=== PATIENT | female | born 1945 | race Caucasian/White ===

== ENCOUNTER 2016-09-23 18:50 | Emergency (ER) | payer MEDICARE, OTHER ==
[2016-09-23] MEDS ORDERED: Albuterol/Ipratropium 3.0-0.5 MG/3 ML Neb Soln NEB ONE ×2 (19:06→20:01)
[2016-09-23] MEDS ORDERED: Sodium Chloride 0.9% 10 ML Syringe FLUSH PRN (19:07)
[2016-09-23] MEDS ORDERED: methylPREDNISolone Sodium Succinate 125 MG/2 ML SDV IVPUSH ONE (19:07)
--- NOTE | 2016-09-23 19:14 | EDM.PDOC ---
ED HISTORY OF PRESENT ILLNESS - General Chief Complaint: Respiratory Problem Stated Complaint: SOB Time Seen by Provider: 09/23/16 18:55 Source: Reports: Patient History Limitations: Reports: No limitations - History of Present Illness INITIAL COMMENTS - FREE TEXT/NARRATIVE: c/o sob x 12h inc'd sob, has COPD, no cigs x yrs, on 3 l/min O2 at home nasal congestion x 1d no f/c/d cough, nonproductive forgot to use her alb neb 2h ago as per her routine po 96% on arrival to ED - Related Data Allergies/ADRs: Allergies Allergy/AdvReac Type Severity Reaction Status Date / Time ibuprofen Allergy Nausea and Verified 09/23/16 19:00 Vomiting sulfamethoxazole Allergy Nausea and Verified 09/23/16 19:00 [From Bactrim] Vomiting trimethoprim [From Bactrim] Allergy Nausea and Verified 09/23/16 19:00 Vomiting Home Meds: Home Meds ALPRAZolam 2 mg PO TID 09/24/13 [History] Albuterol [Ventolin HFA] 2 puff INH Q4H PRN 09/24/13 [History] Fluticasone Propionate [Flonase] 2 sprays NASBOTH BID 09/24/13 [History] Lutein 20 mg PO DAILY 09/24/13 [History] Morphine [MS Contin] 15 mg PO BID 09/24/13 [History] Omeprazole [Prilosec] 20 mg PO DAILY 09/24/13 [History] PARoxetine [Paxil] 60 mg PO DAILY 09/24/13 [History] Fluticasone/Salmeterol [Advair 250-50] 1 puff INH BID 07/14/14 [History] Losartan [Cozaar] 100 mg PO DAILY 12/19/14 [History] Cetirizine [ZyrTEC] 10 mg PO DAILY 02/27/16 [History] Theophylline Anhydrous 300 mg PO BID 02/27/16 [History] Codeine/guaiFENesin [Robitussin AC] 5 - 10 ml PO Q4H PRN #1 bottle 05/23/16 [Rx] Naproxen 500 mg PO BID 09/03/16 [History] Triamterene/Hydrochlorothiazid [Triamterene-HCTZ 37.5-25 MG] 1 each PO DAILY [History] traZODone 50 mg PO BEDTIME 09/03/16 [History] Acetaminophen [Tylenol Arthritis] 1,300 mg PO Q8H 09/04/16 [History] Albuterol/Ipratropium [DuoNeb 3.0-0.5 MG/3 ML] 3 ml IH QID PRN 09/04/16 [History ] Bimatoprost [Lumigan 0.01% Ophth Soln] 1 drop EYEBOTH BEDTIME 09/04/16 [History] Metoprolol Succinate [Toprol XL] 25 mg PO BID 09/04/16 [History] Benzonatate [Tessalon Perles] 100 mg PO QID #30 cap 09/06/16 [Rx] Azithromycin [IJD: Azithromycin] 250 mg PO DAILY #4 tab 09/23/16 [Rx] Cyproheptadine 4 mg PO TID 09/23/16 [History] Docusate Sodium/Sennosides [Senokot-S] 1 tab PO BEDTIME 09/23/16 [History] Hypromellose [GenTeal Mild to Moderate Ophth Soln] 1 drop EYEBOTH DAILY [History] predniSONE [Prednisone] 20 mg PO DAILY #9 tablet 09/23/16 [Rx] Past Medical History HEENT History: Reports: Cataract, Glaucoma Cardiovascular History: Reports: Hypertension Respiratory History: Reports: Asthma Other Respiratory History: PULMONARY EMPHYSEMA Gastrointestinal History: Reports: GERD Musculoskeletal History: Reports: Arthritis Neurological History: Reports: Headaches, chronic, Other (see below) Other Neuro History: COMMUNICATION HYDROCEPHALUS Psychiatric History: Reports: Anxiety, Depression Endocrine/Metabolic History: Reports: Obesity/BMI 30+ Other Hematologic History: blood transfusion as a baby x1 - Past Surgical History HEENT Surgical History: Reports: Tonsillectomy GI Surgical History: Reports: Appendectomy, Cholecystectomy Female Surgical History: Reports: Hysterectomy, Tubal ligation Social & Family History - Tobacco Use Smoking Status *Q: Former Smoker Years of Tobacco use: 30 Used Tobacco, but Quit: Yes Month Tobacco Last Used: August Second Hand Smoke Exposure: No - Caffeine Use Caffeine Use: Reports: None - Alcohol Use Days Per Week of Alcohol Use: 0 - Recreational Drug Use Recreational Drug Use: No ED ROS GENERAL - Review of Systems Review Of Systems: See Below Constitutional: Reports: no symptoms HEENT: Reports: Rhinitis Respiratory: Reports: no symptoms Cardiovascular: Reports: Chest pain, Other (sternal CP with DB) Endocrine: Reports: no symptoms GI/Abdominal: Reports: No symptoms : Reports: no symptoms Musculoskeletal: Reports: no symptoms Skin: Reports: no symptoms Neurological: Reports: no symptoms Psychiatric: Reports: No symptoms Hematologic/Lymphatic: Reports: no symptoms Immunologic: Reports: no symptoms ED EXAM, GENERAL - Physical Exam Exam: See Below Exam Limited By: No limitations General Appearance: alert, WD/WN, mild distress Nose: nasal swelling, nasal drainage Throat/Mouth: Normal inspection, Normal lips, Normal gums, Normal oropharynx, Normal voice, No airway compromise Head: atraumatic, normocephalic Neck: normal inspection, supple, non-tender, full range of motion Respiratory/Chest: other (talk 4-word sentences, using accesory muscles, no retractions, moderate dyspnea, fair AE, moderate exp wheeze) Cardiovascular: normal peripheral pulses, regular rate, rhythm, no edema, no gallop, no rub, other (2/6 EBONY at LSB) GI/Abdominal: normal bowel sounds, soft, non tender, no distention Back Exam: normal inspection, full range of motion, NT Extremities: normal inspection, normal range of motion, non-tender, normal capillary refill, no pedal edema Neurological: alert, oriented, CN II-XII intact, normal cognition, no motor/ sensory deficits Psychiatric: normal affect, normal mood Skin Exam: Warm, Dry, Intact, Normal color, No rash Lymphatic: no adenopathy Course - Vital Signs Last Recorded V/S: Last Vital Signs Temp 36.5 C 09/23/16 19:11 Pulse 102 H 09/23/16 22:33 Resp 22 H 09/23/16 22:33 BP 151/107 H 09/23/16 22:33 Pulse Ox 97 09/23/16 22:33 - Orders/Labs/Meds Orders: Active Orders 24 hr Category Date Time Status EKG Documentation Completion [RC] ASDIRECTED Care 09/23/16 19:06 Active RT Aerosol Therapy [RC] ASDIRECTED Care 09/23/16 19:07 Active RT Aerosol Therapy [RC] ASDIRECTED Care 09/23/16 20:01 Active Ang Chest [CT] Stat Exams 09/23/16 20:33 Taken Chest 2V [CR] Stat Exams 09/23/16 19:06 Taken URINALYSIS W/MICROSCOPIC [UA W/MICROSCOPIC] [URIN] Stat Lab 09/23/16 19:05 Uncollected Sodium Chloride 0.9% [Saline Flush] Med 09/23/16 19:07 Active 10 ml FLUSH ASDIRECTED PRN Saline Lock Insert [OM.PC] Routine Oth 09/23/16 19:07 Ordered EKG 12 Lead [EK] Routine Ther 09/23/16 19:06 Ordered Medication Orders Sodium Chloride (Saline Flush) 10 ml FLUSH ASDIRECTED PRN PRN Reason: Keep Vein Open Last Admin: 09/23/16 19:21 Dose: 10 ml Labs: Laboratory Tests 09/23/16 09/23/16 09/23/16 Range/Units 19:35 19:35 19:35 WBC 8.4 (4.5-12.0) X10-3/uL RBC 3.75 (3.23-5.20) x10(6)uL Hgb 11.9 (11.5-15.5) g/dL Hct 35.6 (30.0-51.3) % MCV 94.8 (80-96) fL MCH 31.7 (27.7-33.6) pg MCHC 33.4 (32.2-35.4) g/dL RDW 14.0 (11.5-15.5) % Plt Count 377 H (125-369) X10(3)uL MPV 5.8 L (7.4-10.4) fL Neut % (Auto) 54.4 (46-82) % Lymph % (Auto) 36.5 (13-37) % [place] % (Auto) 8.0 (4-12) % Eos % (Auto) 1 (1.0-5.0) % Baso % (Auto) 1 (0-2) % Neut # 4.5 (1.6-8.3) # Lymph # 3.1 (0.6-5.0) # [place] # 0.7 (0.0-1.3) # Eos # 0.1 (0.0-0.8) # Baso # 0.0 (0.0-0.2) # D-Dimer, Quantitative (100-400) ng/mL ABG pH (7.35-7.45) ABG pCO2 (35-45) mmHg ABG pO2 (83-108) mmHg ABG HCO3 (22-26) mmol/L ABG O2 Saturation (96-97) % ABG Base Excess (-2-2) Jose A Test O2 Delivery Device Oxygen Flow Rate L Sodium 132 L (135-145) mmol/L Potassium 3.8 (3.5-5.3) mmol/L Chloride 100 (100-110) mmol/L Carbon Dioxide 25 (23-29) mmol/L BUN 8 (8-23) mg/dL Creatinine 0.5 L (0.6-1.3) mg/dL Est Cr Clr Drug Dosing TNP Estimated GFR (MDRD) > 60 (>60) BUN/Creatinine Ratio 16.0 (9-20) Glucose 109 (80-116) mg/dL Calcium 9.3 (8.6-10.2) mg/dL Total Bilirubin 0.7 (0.1-1.3) mg/dL AST 18 D (5-27) IU/L ALT 12 L D (14-26) IU/L Alkaline Phosphatase 70 (56-112) IU/L Troponin I < 0.01 L (0.02-0.06) NG/ML C-Reactive Protein < 0.5 (0.0-1.0) mg/dL B-Natriuretic Peptide (0-100) pg/mL Total Protein 7.0 (6.0-8.0) g/dL Albumin 4.4 (3.2-4.6) g/dL Globulin 2.6 g/dL Albumin/Globulin Ratio 1.7 09/23/16 09/23/16 09/23/16 Range/Units 19:35 19:35 19:35 WBC (4.5-12.0) X10-3/uL RBC (3.23-5.20) x10(6)uL Hgb (11.5-15.5) g/dL Hct (30.0-51.3) % MCV (80-96) fL MCH (27.7-33.6) pg MCHC (32.2-35.4) g/dL RDW (11.5-15.5) % Plt Count (125-369) X10(3)uL MPV (7.4-10.4) fL Neut % (Auto) (46-82) % Lymph % (Auto) (13-37) % [place] % (Auto) (4-12) % Eos % (Auto) (1.0-5.0) % Baso % (Auto) (0-2) % Neut # (1.6-8.3) # Lymph # (0.6-5.0) # [place] # (0.0-1.3) # Eos # (0.0-0.8) # Baso # (0.0-0.2) # D-Dimer, Quantitative 582 H (100-400) ng/mL ABG pH 7.36 (7.35-7.45) ABG pCO2 43 (35-45) mmHg ABG pO2 52 L (83-108) mmHg ABG HCO3 24 (22-26) mmol/L ABG O2 Saturation 85 L (96-97) % ABG Base Excess -1.3 (-2-2) Jose A Test Not performed O2 Delivery Device Nasal cannula Oxygen Flow Rate 0 L Sodium (135-145) mmol/L Potassium (3.5-5.3) mmol/L Chloride (100-110) mmol/L Carbon Dioxide (23-29) mmol/L BUN (8-23) mg/dL Creatinine (0.6-1.3) mg/dL Est Cr Clr Drug Dosing Estimated GFR (MDRD) (>60) BUN/Creatinine Ratio (9-20) Glucose (80-116) mg/dL Calcium (8.6-10.2) mg/dL Total Bilirubin (0.1-1.3) mg/dL AST (5-27) IU/L ALT (14-26) IU/L Alkaline Phosphatase (56-112) IU/L Troponin I (0.02-0.06) NG/ML C-Reactive Protein (0.0-1.0) mg/dL B-Natriuretic Peptide 15 (0-100) pg/mL Total Protein (6.0-8.0) g/dL Albumin (3.2-4.6) g/dL Globulin g/dL Albumin/Globulin Ratio Meds: Medications Generic Name Dose Route Start Last Admin Trade Name Freq PRN Reason Stop Dose Admin Sodium Chloride 10 ml 09/23/16 19:07 09/23/16 19:21 Saline Flush FLUSH 10 ml ASDIRECTED PRN Administration Keep Vein Open Discontinued Medications Generic Name Dose Route Start Last Admin Trade Name True PRN Reason Stop Dose Admin Albuterol/Ipratropium 3 ml 09/23/16 19:06 09/23/16 19:17 Duoneb 3.0-0.5 Mg/3 Ml NEB 09/23/16 19:07 3 ml ONETIME ONE Administration Albuterol/Ipratropium 3 ml 09/23/16 20:01 09/23/16 20:08 Duoneb 3.0-0.5 Mg/3 Ml NEB 09/23/16 20:02 3 ml ONETIME ONE Administration Iopamidol 63 ml 09/23/16 20:54 09/23/16 21:11 Isovue-370 (76%) IV 09/23/16 20:55 63 ml ONETIME ONE Administration Lorazepam 1 mg 09/23/16 19:21 09/23/16 20:09 Ativan IVPUSH 09/23/16 19:22 1 mg ONETIME ONE Administration Methylprednisolone Sodium Succinate 125 mg 09/23/16 19:07 09/23/16 19:21 Solu-Medrol IVPUSH 09/23/16 19:08 125 mg ONETIME ONE Administration - Re-Assessments/Exams Free Text/Narrative Re-Assessment/Exam: 09/23/16 20:34 CxR d/w radiologist, new linear markings at bases c/w atelectasis altho not in pt using accessory muscles, there is a discoid appearance c/w possible PE which is a consideration with an inc'd d-dimer that is 50% than ULN and 50% higher than previous 09/23/16 22:57 chest CTA neg for PE, lungs much more clear after Solu-Medrol, had eye surgery earlier this AM and pt reluctant to go home Departure - Departure Time of Disposition: 22:58 Disposition: [facility] Condition: good Clinical Impression: COPD exacerbation Prescriptions: Azithromycin [IJD: Azithromycin] 250 mg PO DAILY #4 tab predniSONE [Prednisone] 20 mg PO DAILY #9 tablet Instructions: Chronic Obstructive Pulmonary Disease Exacerbation, Lycb-kg-Ipyg Forms: ED Department Discharge Additional Instructions: Continue current nebulizers and inhalers. Add the steroid prednisone 20 mg 2 tab daily for 2 days, then 1 tab daily for 5 days. Add the antibiotic azithromycin 2509 mg 1 tab daily for 4 days. See your doctor in 4 days. Rest. Increase fluids. Call your Physician or Return to Emergency Department if: * Your condition worsens in any way. * You develop fever greater than 100.4. * You have vomitting that does not stop with medications. * You have pain that is not controlled with medications. - My Orders Last 24 Hours: My Active Orders 09/23/16 19:05 URINALYSIS W/MICROSCOPIC [UA W/MICROSCOPIC] [URIN] Stat 09/23/16 19:06 EKG Documentation Completion [RC] ASDIRECTED Chest 2V [CR] Stat EKG 12 Lead [EK] Routine 09/23/16 19:07 RT Aerosol Therapy [RC] ASDIRECTED Sodium Chloride 0.9% [Saline Flush] 10 ml FLUSH ASDIRECTED PRN Saline Lock Insert [OM.PC] Routine 09/23/16 20:01 RT Aerosol Therapy [RC] ASDIRECTED 09/23/16 20:33 Ang Chest [CT] Stat - Assessment/Plan Last 24 Hours: My Active Orders 09/23/16 19:05 URINALYSIS W/MICROSCOPIC [UA W/MICROSCOPIC] [URIN] Stat 09/23/16 19:06 EKG Documentation Completion [RC] ASDIRECTED Chest 2V [CR] Stat EKG 12 Lead [EK] Routine 09/23/16 19:07 RT Aerosol Therapy [RC] ASDIRECTED Sodium Chloride 0.9% [Saline Flush] 10 ml FLUSH ASDIRECTED PRN Saline Lock Insert [OM.PC] Routine 09/23/16 20:01 RT Aerosol Therapy [RC] ASDIRECTED 09/23/16 20:33 Ang Chest [CT] Stat
[2016-09-23] MEDS ORDERED: LORazepam 2 MG/ML MDV IVPUSH ONE (19:21)
[2016-09-23] MEDS ORDERED: Iopamidol 755 Mg/ML 75 ML Bottle IV ONE (20:54)
[2016-09-23] MEDS ORDERED: Azithromycin 500 MG Tab PO ONE (22:58)
[2016-09-24 01:14] VITALS: BP 128/63
--- NOTE | 2016-09-24 12:14 | CR ---
INDICATION: Short of breath. CHEST: Bibasilar linear changes which may be on the basis of subsegmental atelectasis. The possibility of patchy pneumonia superimposed is difficult to entirely exclude. No consolidating pneumonia or effusion was identified, however. At least some of these atelectatic appearing linear changes are new compared with the previous examination bilaterally. The heart is enlarged. No definite evidence of CHF is seen. Calcification is noted in the arch of the aorta. Severe dextroconcave rotoscoliosis of the lumbar spine is noted with tilt of the thoracic spine, in compensation, to the left in the lower portion, and dextroconvex scoliosis of the upper middle thoracic spine. Overlying snaps and overlying EKG lead noted. IMPRESSION: New finding of subsegmental atelectatic changes both lung bases. Etiology indeterminate. Findings should be correlated clinically. 2. Partially flattened diaphragm leaves, prominent AP diameter, mild hyperaeration, all suggest the possibility of COPD. 3. Scoliosis. 4. ASHD. With the new, possibly acute findings in the lung bases of linear atelectatic change, etiology is indeterminate. If pulmonary embolus is suspected clinically , additional examination - CT with IV contrast may be helpful. Report was called to Dr. Antunez at 1935 hours, 09/23/2016. [facility]
== END 2016-09-24 00:30 | disposition home or self-care (01) ==
LOC: FB.ED 18:50
DX: J44.1 Chronic obstructive pulmonary disease with (acute) exacerbation (principal); I10 Essential (primary) hypertension; J45.909 Unspecified asthma, uncomplicated; K21.9 Gastro-esophageal reflux disease without esophagitis; M19.90 Unspecified osteoarthritis, unspecified site; F41.9 Anxiety disorder, unspecified; F32.9 Major depressive disorder, single episode, unspecified; E66.9 Obesity, unspecified; Z98.890 Other specified postprocedural states; Z90.49 Acquired absence of other specified parts of digestive tract; Z90.710 Acquired absence of both cervix and uterus; Z98.51 Tubal ligation status; Z87.891 Personal history of nicotine dependence; Z79.899 Other long term (current) drug therapy; Z88.6 Allergy status to analgesic agent
CPT/HCPCS: 36415; 36600; 71020; 71275; 80053; 81001; 82803; 83880; 84484; 85025; 85379; 86140; 93005; 94640; 96374; 96375; 99285; J2060; J2930; J7050; J7620; Q9967

== ENCOUNTER 2017-03-25 03:25 | Observation (INO) | payer MEDICARE, OTHER ==
[2017-03-25] MEDS ORDERED: LORazepam 1 MG Tab PO ONE (04:10)
--- NOTE | 2017-03-25 04:17 | EDM.PDOCBH ---
ED HPI GENERAL MEDICAL PROBLEM - General Chief Complaint: General Stated Complaint: TROUBLE BREATHING Time Seen by Provider: 03/25/17 04:00 Source of Information: Reports: Patient, Family, Old Records History Limitations: Reports: No Limitations - History of Present Illness INITIAL COMMENTS - FREE TEXT/NARRATIVE: Asha comes to [facility] ED with sxs of a panic attack that began several hours ago. She has a PMH of ALVIN and takes Xanax 2 mg tid, current supply depleted and unable to refill medicatioin until March 28. Her Buspar is not helping control sxs. She has been on anxiolytics most of her adult life. She is experiencing restlessness, headaches, tremors, agitation, palpitations, and insomnia. Her med list is reviewed. - Related Data Allergies Allergy/AdvReac Type Severity Reaction Status Date / Time ibuprofen Allergy Nausea and Verified 09/23/16 19:00 Vomiting sulfamethoxazole Allergy Nausea and Verified 09/23/16 19:00 [From Bactrim] Vomiting trimethoprim [From Bactrim] Allergy Nausea and Verified 09/23/16 19:00 Vomiting Home Meds: Home Meds ALPRAZolam 2 mg PO TID 09/24/13 [History] Albuterol [Ventolin HFA] 2 puff INH Q4H PRN 09/24/13 [History] Fluticasone Propionate [Flonase] 2 sprays NASBOTH BID 09/24/13 [History] Lutein 20 mg PO DAILY 09/24/13 [History] Morphine [MS Contin] 15 mg PO BID 09/24/13 [History] Omeprazole [Prilosec] 20 mg PO DAILY 09/24/13 [History] PARoxetine [Paxil] 60 mg PO DAILY 09/24/13 [History] Fluticasone/Salmeterol [Advair 250-50] 1 puff INH BID 07/14/14 [History] Losartan [Cozaar] 100 mg PO DAILY 12/19/14 [History] Cetirizine [ZyrTEC] 10 mg PO DAILY 02/27/16 [History] Theophylline Anhydrous 300 mg PO BID 02/27/16 [History] Codeine/guaiFENesin [Robitussin AC] 5 - 10 ml PO Q4H PRN #1 bottle 05/23/16 [Rx] Naproxen 500 mg PO BID 09/03/16 [History] Triamterene/Hydrochlorothiazid [Triamterene-HCTZ 37.5-25 MG] 1 each PO DAILY [History] traZODone 50 mg PO BEDTIME 09/03/16 [History] Acetaminophen [Tylenol Arthritis] 1,300 mg PO Q8H 09/04/16 [History] Albuterol/Ipratropium [DuoNeb 3.0-0.5 MG/3 ML] 3 ml IH QID PRN 09/04/16 [History ] Bimatoprost [Lumigan 0.01% Ophth Soln] 1 drop EYEBOTH BEDTIME 09/04/16 [History] Metoprolol Succinate [Toprol XL] 25 mg PO BID 09/04/16 [History] Benzonatate [Tessalon Perles] 100 mg PO QID #30 cap 09/06/16 [Rx] Azithromycin [IJD: Azithromycin] 250 mg PO DAILY #4 tab 09/23/16 [Rx] Cyproheptadine 4 mg PO TID 09/23/16 [History] Docusate Sodium/Sennosides [Senokot-S] 1 tab PO BEDTIME 09/23/16 [History] Hypromellose [GenTeal Mild to Moderate Ophth Soln] 1 drop EYEBOTH DAILY [History] predniSONE [Prednisone] 20 mg PO DAILY #9 tablet 09/23/16 [Rx] Past Medical History HEENT History: Reports: Cataract, Glaucoma Cardiovascular History: Reports: Hypertension Respiratory History: Reports: Asthma Other Respiratory History: PULMONARY EMPHYSEMA Gastrointestinal History: Reports: GERD Musculoskeletal History: Reports: Arthritis Neurological History: Reports: Headaches, Chronic, Other (See Below) Other Neuro History: COMMUNICATION HYDROCEPHALUS Psychiatric History: Reports: Anxiety, Depression Endocrine/Metabolic History: Reports: Obesity/BMI 30+ Other Hematologic History: blood transfusion as a baby x1 - Past Surgical History Female Surgical History: Reports: Hysterectomy, Tubal Ligation Social & Family History - Tobacco Use Smoking Status *Q: Former Smoker Years of Tobacco use: 30 Used Tobacco, but Quit: Yes Month Tobacco Last Used: August Second Hand Smoke Exposure: No - Caffeine Use Caffeine Use: Reports: None - Alcohol Use Days Per Week of Alcohol Use: 0 - Recreational Drug Use Recreational Drug Use: No ED ROS GENERAL - Review of Systems Review Of Systems: See Below Constitutional: Reports: No Symptoms HEENT: Reports: No Symptoms Respiratory: Reports: No Symptoms Cardiovascular: Reports: Palpitations Endocrine: Reports: No Symptoms GI/Abdominal: Reports: No Symptoms : Reports: No Symptoms Musculoskeletal: Reports: No Symptoms Skin: Reports: No Symptoms Neurological: Reports: Dizziness, Headache, Numbness, Tingling, Tremors Psychiatric: Reports: Agitation, Anxiety Hematologic/Lymphatic: Reports: No Symptoms Immunologic: Reports: No Symptoms ED EXAM, BEHAVIORAL HEALTH - Physical Exam Exam: See Below Exam Limited By: No Limitations General Appearance: Alert, WD/WN, Anxious, Mild Distress Eye Exam: Bilateral Eye: EOMI, Normal Inspection, PERRL Ears: Normal External Exam Nose: Normal Inspection Throat/Mouth: Normal Inspection, Normal Oropharynx Head: Normocephalic Neck: Normal Inspection, Supple Respiratory/Chest: Lungs Clear, Normal Breath Sounds Cardiovascular: Regular Rate, Rhythm GI/Abdominal: Normal Bowel Sounds, Soft, Non-Tender, No Organomegaly, No Mass Back Exam: Normal Inspection Extremities: Normal Inspection, Normal Range of Motion Neurological: Alert, CN II-XII Intact, Normal Cognition, No Motor/Sensory Deficits, Oriented x 3 Psychiatric: Alert, Oriented, Restless, Agitated Skin Exam: Warm, Dry, Intact COURSE, BEHAVIORAL HEALTH COMP - Course Vital Signs: Last Vital Signs Temp 36.6 C 03/25/17 03:45 Pulse 92 03/25/17 03:45 Resp 24 H 03/25/17 03:45 BP 171/90 H 03/25/17 03:45 Pulse Ox 97 03/25/17 03:45 Orders, Labs, Meds: Active Orders 24 hr Category Date Time Status ACETAMINOPHEN [CHEM] Routine Lab 03/25/17 04:45 Stop Req BASIC METABOLIC PANEL,BMP [CHEM] Routine Lab 03/25/17 04:45 Stop Req CBC WITH AUTO DIFF [HEME] Routine Lab 03/25/17 04:45 Received COMPREHENSIVE METABOLIC PN,CMP [CHEM] Stat Lab 03/25/17 04:46 Ordered ETHANOL BLOOD MEDICAL [CHEM] Routine Lab 03/25/17 04:45 Stop Req SALICYLATE [CHEM] Routine Lab 03/25/17 04:45 Stop Req TSH ULTRASENSITIVE [CHEM] Routine Lab 03/25/17 04:45 Stop Req Sodium Chloride 0.9% [Normal Saline] 500 ml Med 03/25/17 04:44 Active IV .BOLUS Sodium Chloride 0.9% [Saline Flush] Med 03/25/17 04:43 Active 10 ml FLUSH ASDIRECTED PRN Peripheral IV Insertion Adult [OM.PC] Routine Oth 03/25/17 04:43 Ordered Medication Orders Sodium Chloride (Normal Saline) 500 mls @ 500 mls/hr IV .BOLUS ONE Stop: 03/25/17 05:43 Sodium Chloride (Saline Flush) 10 ml FLUSH ASDIRECTED PRN PRN Reason: Keep Vein Open Medications Generic Name Dose Route Start Last Admin Trade Name Freq PRN Reason Stop Dose Admin Sodium Chloride 500 mls @ 500 mls/hr 03/25/17 04:44 Normal Saline IV 03/25/17 05:43 .BOLUS ONE Sodium Chloride 10 ml 03/25/17 04:43 Saline Flush FLUSH ASDIRECTED PRN Keep Vein Open Discontinued Medications Generic Name Dose Route Start Last Admin Trade Name Freq PRN Reason Stop Dose Admin Lorazepam 1 mg 03/25/17 04:10 03/25/17 04:19 Ativan PO 03/25/17 04:11 1 mg ONETIME ONE Administration Lorazepam 1 mg 03/25/17 04:43 Ativan IVPUSH 03/25/17 04:44 ONETIME ONE Departure - Departure Time of Disposition: 04:50 Disposition: Refer to Observation Condition: Fair Clinical Impression: Witnessed seizure - Discharge Information Referrals: Cristian Velez MD [Primary Care Provider] - Forms: ED Department Discharge - Problem List & Annotations (1) Witnessed seizure SNOMED Code(s): 27587839 Code(s): R56.9 - UNSPECIFIED CONVULSIONS Status: Acute Current Visit: Yes Annotation/Comment:: Asha received Ativan 1 mg po while in the ED, and then went to the commode to void about 15 minutes later. She subsequently had a generalized tonic-clonic seizure which lasted about 1 minute and subsided spontaneously. She is currently post ictal, and will be admitted to Observation for suspected withdrawl seizure (Xanax). An IV was inserted, and she received Ativan 1 mg IV prior to transfer. - Problem List Review Problem List Initiated/Reviewed/Updated: Yes - My Orders Last 24 Hours: My Active Orders 03/25/17 04:43 Sodium Chloride 0.9% [Saline Flush] 10 ml FLUSH ASDIRECTED PRN Peripheral IV Insertion Adult [OM.PC] Routine 03/25/17 04:44 Sodium Chloride 0.9% [Normal Saline] 500 ml IV .BOLUS 03/25/17 04:45 ACETAMINOPHEN [CHEM] Routine BASIC METABOLIC PANEL,BMP [CHEM] Routine CBC WITH AUTO DIFF [HEME] Routine ETHANOL BLOOD MEDICAL [CHEM] Routine SALICYLATE [CHEM] Routine TSH ULTRASENSITIVE [CHEM] Routine 03/25/17 04:46 COMPREHENSIVE METABOLIC PN,CMP [CHEM] Stat - Assessment/Plan Last 24 Hours: My Active Orders 03/25/17 04:43 Sodium Chloride 0.9% [Saline Flush] 10 ml FLUSH ASDIRECTED PRN Peripheral IV Insertion Adult [OM.PC] Routine 03/25/17 04:44 Sodium Chloride 0.9% [Normal Saline] 500 ml IV .BOLUS 03/25/17 04:45 ACETAMINOPHEN [CHEM] Routine BASIC METABOLIC PANEL,BMP [CHEM] Routine CBC WITH AUTO DIFF [HEME] Routine ETHANOL BLOOD MEDICAL [CHEM] Routine SALICYLATE [CHEM] Routine TSH ULTRASENSITIVE [CHEM] Routine 03/25/17 04:46 COMPREHENSIVE METABOLIC PN,CMP [CHEM] Stat Plan: Move to Observation and monitor for any further withdrawl seizure activity, and restore benzodiazepine meds pending follow up with PCP.
[2017-03-25] MEDS ORDERED: Sodium Chloride 0.9% 10 ML Syringe FLUSH PRN (04:43)
[2017-03-25] MEDS ORDERED: LORazepam 2 MG/ML MDV IVPUSH ONE (04:43)
[2017-03-25] MEDS ORDERED: Sodium Chloride 0.9% 500 ML IV ONE (04:44)
[2017-03-25] MEDS ORDERED: Sodium Chloride 0.9% 1,000 ML IV SCH (06:00)
[2017-03-25] MEDS ORDERED: Albuterol 8 GM Inhaler INH PRN (07:40)
[2017-03-25] MEDS ORDERED: BENZONATATE 100 MG PO PRN (07:40)
[2017-03-25] MEDS ORDERED: Albuterol/Ipratropium 3.0-0.5 MG/3 ML Neb Soln NEB PRN (07:40)
--- NOTE | 2017-03-25 08:58 | PCM.HP ---
H&P History of Present Illness - General Date of Service: 03/25/17 Source of Information: Patient History Limitations: Reports: No Limitations - History of Present Illness Initial Comments - Free Text/Narative: This is a 72-year-old female patient came to the ER last night because of shortness of breath, chest pain and anxiety. She is on 2 mg of Xanax 3 times a day for years. She ran out last week she thinks. She was seen in the clinic yesterday and they gave her BuSpar. While she was here she had a seizure and was postictal according to the ER note. She has no history of seizures. She states she feels little short of breath, she is aching all over and feels nervous. She denies fevers, chills, cough, wheezing, weakness. back Pain Score (Numeric/FACES): 5 - Related Data Allergies/Adverse Reactions: Allergies Allergy/AdvReac Type Severity Reaction Status Date / Time ibuprofen Allergy Nausea and Verified 03/25/17 07:13 Vomiting sulfamethoxazole Allergy Nausea and Verified 03/25/17 07:13 [From Bactrim] Vomiting trimethoprim [From Bactrim] Allergy Nausea and Verified 03/25/17 07:13 Vomiting Home Medications: Home Meds ALPRAZolam 2 mg PO TID 09/24/13 [History] Albuterol [Ventolin HFA] 2 puff INH Q4H PRN 09/24/13 [History] Fluticasone Propionate [Flonase] 2 sprays NASBOTH BID 09/24/13 [History] Lutein 20 mg PO BID 09/24/13 [History] Morphine [MS Contin] 15 mg PO BID 09/24/13 [History] Omeprazole [Prilosec] 20 mg PO DAILY 09/24/13 [History] PARoxetine [Paxil] 60 mg PO DAILY 09/24/13 [History] Fluticasone/Salmeterol [Advair 250-50] 1 puff INH BID 07/14/14 [History] Losartan [Cozaar] 100 mg PO DAILY 12/19/14 [History] Cetirizine [ZyrTEC] 10 mg PO DAILY 02/27/16 [History] Theophylline Anhydrous 300 mg PO BID 02/27/16 [History] Codeine/guaiFENesin [Robitussin AC] 5 - 10 ml PO Q4H PRN #1 bottle 05/23/16 [Rx] Naproxen 500 mg PO BID PRN 09/03/16 [History] Triamterene/Hydrochlorothiazid [Triamterene-HCTZ 37.5-25 MG] 1 each PO DAILY [History] traZODone 50 mg PO BEDTIME 09/03/16 [History] Acetaminophen [Tylenol Arthritis] 1,300 mg PO Q8H 09/04/16 [History] Albuterol/Ipratropium [DuoNeb 3.0-0.5 MG/3 ML] 3 ml IH QID PRN 09/04/16 [History ] Bimatoprost [Lumigan 0.01% Ophth Soln] 1 drop EYEBOTH BEDTIME 09/04/16 [History] Metoprolol Succinate [Toprol XL] 25 mg PO BID 09/04/16 [History] Azithromycin [IJD: Azithromycin] 250 mg PO DAILY #4 tab 09/23/16 [Rx] Docusate Sodium/Sennosides [Senokot-S] 1 tab PO BID 09/23/16 [History] Hypromellose [GenTeal Mild to Moderate Ophth Soln] 1 drop EYEBOTH DAILY [History] predniSONE [Prednisone] 20 mg PO DAILY #9 tablet 09/23/16 [Rx] Benzonatate [Tessalon Perles] 100 mg PO QID PRN 03/25/17 [History] Budesonide [Pulmicort] 1 unit INH TID 03/25/17 [History] Calcium Carbonate/Vitamin D3 [Calcium 600-Vit D3 400 Tablet] 1 tab PO BID [History] Dextran 70/Hypromellose [Artificial Tears] 1 drop EYEBOTH ASDIRECTED PRN [History] Multivitamin [Multi-Vitamin Daily] 1 tab PO DAILY 03/25/17 [History] Polyethylene Glycol 3350 [MiraLAX] 17 gram PO BID 03/25/17 [History] Past Medical History HEENT History: Reports: Cataract, Glaucoma Cardiovascular History: Reports: Hypertension Respiratory History: Reports: Asthma Other Respiratory History: PULMONARY EMPHYSEMA Gastrointestinal History: Reports: GERD Genitourinary History: Reports: Urinary Incontinence [employer]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: Musculoskeletal History: Reports: Arthritis Neurological History: Reports: Headaches, Chronic, Other (See Below) Other Neuro History: COMMUNICATION HYDROCEPHALUS Psychiatric History: Reports: Anxiety, Depression Endocrine/Metabolic History: Reports: Obesity/BMI 30+ Other Hematologic History: blood transfusion as a baby x1 - Past Surgical History Female Surgical History: Reports: Hysterectomy, Tubal Ligation Social & Family History - Family History Family Medical History: Noncontributory - Tobacco Use Smoking Status *Q: Never Smoker Years of Tobacco use: 30 Used Tobacco, but Quit: Yes Month Tobacco Last Used: August Second Hand Smoke Exposure: No - Caffeine Use Caffeine Use: Reports: Coffee, Soda - Alcohol Use Days Per Week of Alcohol Use: 0 - Recreational Drug Use Recreational Drug Use: No H&P Review of Systems - Review of Systems: Review Of Systems: See Below General: Reports: No Symptoms HEENT: Reports: No Symptoms Pulmonary: Reports: Shortness of Breath. Denies: Wheezing, Cough, Sputum, Hemoptysis Cardiovascular: Reports: No Symptoms Gastrointestinal: Reports: No Symptoms Genitourinary: Reports: No Symptoms Musculoskeletal: Reports: Other (Myalgias all over) Skin: Reports: No Symptoms Psychiatric: Reports: Anxiety Neurological: Reports: No Symptoms Hematologic/Lymphatic: Reports: No Symptoms Immunologic: Reports: No Symptoms Exam - Exam Exam: See Below - Vital Signs Vital Signs: Last Vital Signs Temp 98.4 F 03/25/17 05:50 Pulse 93 03/25/17 05:50 Resp 16 03/25/17 05:50 BP 126/77 03/25/17 05:50 Pulse Ox 92 L 03/25/17 05:50 Weight: 172 lb 3.2 oz - Exam General: Alert, Oriented, Cooperative, Mild Distress HEENT: Hearing Intact, Mucosa Moist & [place], Posterior Pharynx Clear, TMs Clear Neck: Supple, Trachea Midline Lungs: Clear to Auscultation, Normal Respiratory Effort. No: Crackles, Rales, Rhonchi, Rub Cardiovascular: Regular Rate, Regular Rhythm. No: Irregular Rhythm, Bradycardia , Tachycardia GI/Abdominal Exam: Normal Bowel Sounds, Soft, Non-Tender, No Organomegaly, No Distention, No Abnormal Bruit, No Mass Extremities: No Pedal Edema Skin: Warm, Dry, Intact Neurological: Normal Speech, Normal Tone Neuro Extensive - Mental Status: Alert, Oriented x3, Normal Mood/Affect, Normal Cognition Psychiatric: Alert, Anxious - Patient Data Result Diagrams: 03/25/17 05:00 03/25/17 05:00 *Q Meaningful Use (ADM) - VTE *Q VTE Criteria *Q: - Stroke *Q Stroke Criteria *Q: - AMI *Q AMI Criteria *Q: - Problem List (1) Benzodiazepine withdrawal SNOMED Code(s): 288920073 ICD Code: F13.239 - SEDATV/HYP/ANXIOLYTC DEPENDENCE W WITHDRAWAL, UNSP Status: Acute Current Visit: Yes (2) Witnessed seizure SNOMED Code(s): 34308135 ICD Code: R56.9 - UNSPECIFIED CONVULSIONS Status: Acute Current Visit: Yes Problem Details: Asha received Ativan 1 mg po while in the ED, and then went to the commode to void about 15 minutes later. She subsequently had a generalized tonic-clonic seizure which lasted about 1 minute and subsided spontaneously. She is currently post ictal, and will be admitted to Observation for suspected withdrawl seizure (Xanax). An IV was inserted, and she received Ativan 1 mg IV prior to transfer. (3) Anxiety SNOMED Code(s): 14138724 ICD Code: F41.9 - ANXIETY DISORDER, UNSPECIFIED Status: Acute Priority: High Current Visit: No Problem Details: cont. alpazolam, SSRI (4) Hyponatremia SNOMED Code(s): 69235985 ICD Code: E87.1 - HYPO-OSMOLALITY AND HYPONATREMIA Status: Acute Current Visit: No (5) Palliative care status SNOMED Code(s): 274628451 ICD Code: Z51.5 - ENCOUNTER FOR PALLIATIVE CARE Status: Acute Current Visit: Yes Problem List Initiated/Reviewed/Updated: Yes Orders Last 24hrs: Active Orders 24 hr Category Date Time Status Oxygen Therapy, ED [RC] ASDIRECTED Care 03/25/17 03:30 Active Telemetry Monitoring [Cardiac Monitoring] [RC] .As Care 03/25/17 06:04 Active Directed Regular Diet [DIET] Diet 03/25/17 Lunch Active CBC WITH AUTO DIFF [HEME] Routine Lab 03/25/17 07:45 Ordered COMPREHENSIVE METABOLIC PN,CMP [CHEM] Routine Lab 03/25/17 07:45 Ordered ALPRAZolam [Xanax] Med 03/25/17 09:00 Active 2 mg PO TID Acetaminophen [Tylenol Arthritis Pain] Med 03/25/17 07:45 Ordered 1,300 mg PO Q8H Albuterol [Ventolin HFA] Med 03/25/17 07:40 Active 0 gm INH Q4H PRN Albuterol/Ipratropium [DuoNeb 3.0-0.5 MG/3 ML] Med 03/25/17 07:40 Ordered 3 ml NEB QID PRN Benzonatate [Tessalon Perles] Med 03/25/17 07:40 Ordered 100 mg PO QID PRN Bimatoprost [LUMIGAN 0.01% Oph Soln] Med 03/25/17 21:00 Ordered DOSE ml EYEBOTH BEDTIME Cetirizine [ZyrTEC] Med 03/25/17 09:00 Active 10 mg PO DAILY Codeine/guaiFENesin Med 03/25/17 07:40 Ordered 5 - 10 ml PO Q4H PRN Cyproheptadine Med 03/25/17 09:00 Ordered 4 mg PO TID Docusate Sodium/Sennosides [Senna Plus] Med 03/25/17 21:00 Ordered 1 tab PO BEDTIME Fluticasone Propionate [Flonase] Med 03/25/17 09:00 Ordered DOSE gm NASBOTH BID Fluticasone/Salmeterol [Advair 250-50] Med 03/25/17 09:00 Active 1 puff INH BID Hypromellose [GenTeal Mild to Moderate Ophth Soln] Med 03/25/17 09:00 Ordered DOSE ml EYEBOTH DAILY Losartan [Cozaar] Med 03/25/17 09:00 Ordered 100 mg PO DAILY Lutein Med 03/25/17 09:00 Ordered 20 mg PO DAILY Metoprolol Succinate [Toprol XL] Med 03/25/17 09:00 Ordered 25 mg PO BID Morphine [MS Contin] Med 03/25/17 09:00 Ordered 15 mg PO BID Naproxen [Naprosyn] Med 03/25/17 09:00 Ordered 500 mg PO BID Omeprazole [Prilosec] Med 03/25/17 09:00 Ordered 20 mg PO DAILY PARoxetine [Paxil] Med 03/25/17 09:00 Active 60 mg PO DAILY Sodium Chloride 0.9% [Normal Saline] 1,000 ml Med 03/25/17 06:15 Active IV ASDIRECTED Theophylline Anhydrous [Theophylline Anhydrous] Med 03/25/17 09:00 Ordered 300 mg PO BID predniSONE Med 03/25/17 09:00 Ordered 20 mg PO DAILY traZODone Med 03/25/17 21:00 Ordered 50 mg PO BEDTIME Medication Orders Acetaminophen (Tylenol Arthritis Pain) 1,300 mg PO Q8H PADMINI Albuterol (Ventolin Hfa) 0 gm INH Q4H PRN PRN Reason: Wheezing Albuterol/Ipratropium (Duoneb 3.0-0.5 Mg/3 Ml) 3 ml NEB QID PRN PRN Reason: breathing Alprazolam (Xanax) 2 mg PO TID PADMINI Artificial Tears (Genteal Mild To Moderate Ophth Soln) ml EYEBOTH DAILY PADMINI Benzonatate (Tessalon Perles) 100 mg PO QID PRN PRN Reason: Cough Bimatoprost (Lumigan 0.01% Ophth Soln) ml EYEBOTH BEDTIME PADMINI Cetirizine HCl (Zyrtec) 10 mg PO DAILY PADMINI Cyproheptadine HCl (Cyproheptadine) 4 mg PO TID PADMINI Fluticasone Propionate (Flonase) gm NASBOTH BID [facility] Sodium Chloride (Normal Saline) 1,000 mls @ 150 mls/hr IV ASDIRECTED PADMINI Losartan Potassium (Cozaar) 100 mg PO DAILY [facility] Lutein (Lutein) 20 mg PO DAILY [facility] Metoprolol Succinate (Toprol Xl) 25 mg PO BID [facility] Morphine Sulfate (Ms Contin) 15 mg PO BID PADMINI Naproxen (Naprosyn) 500 mg PO BID [facility] Non-Formulary Medication (Codeine/Guaifenesin) 5 - 10 ml PO Q4H PRN PRN Reason: Cough Non-Formulary Medication 1 Each ( Fluticasone/Salmeterol [Advair 250-50] 1 Puff ) * Ptom 1 puff INH BID PADMINI Non-Formulary Medication (Omeprazole [Prilosec]) 20 mg PO DAILY PADMINI Non-Formulary Medication (Theophylline Anhydrous [Theophylline Anhydrous]) 300 mg PO BID PADMINI Paroxetine HCl (Paxil) 60 mg PO DAILY [facility] Prednisone (Prednisone) 20 mg PO DAILY PADMINI Senna/Docusate Sodium (Senna Plus) 1 tab PO BEDTIME PADMINI Sodium Chloride (Saline Flush) 10 ml FLUSH ASDIRECTED PRN PRN Reason: Keep Vein Open Trazodone HCl (Trazodone) 50 mg PO BEDTIME [facility] Assessment/Plan Comment:: 1. Admit for observation. 2. IV fluids and hold hydrochlorothiazide. 3. Recheck labs especially CMP and CBC. 4. Restart her Xanax which should help her anxiety and muscle aches in the panic. 5. Attempt to correct her hyponatremia. 6. Regular diet. 7. Up ad tejas. 8. Patient can use her home medications.
[2017-03-25] MEDS ORDERED: Cyproheptadine 4 MG Tab PO SCH (09:00)
[2017-03-25] MEDS ORDERED: Morphine 30 MG Tab.ER PO SCH (09:00)
[2017-03-25] MEDS ORDERED: predniSONE 20 MG Tab PO SCH (09:00)
[2017-03-25] MEDS ORDERED: Non-Formulary Medication 1 Each (Triamterene/Hydrochlorothiazid [Triamterene-Hctz 37.5-25 PO SCH (09:00)
[2017-03-25] MEDS: Losartan 100 MG Tab *PTOM PO SCH (10:21)
[2017-03-25] MEDS: FLUTICASONE INH SCH ×2 (10:22→21:18)
[2017-03-25] MEDS: Fluticasone Propionate Nasal Spray 16 GM Bottle NASBOTH SCH ×2 (10:22→21:18)
[2017-03-25] MEDS: SALMETEROL INH SCH ×2 (10:22→21:18)
[2017-03-25] MEDS: NAPROXEN 500 MG PO SCH ×2 (10:24→21:15)
[2017-03-25] MEDS: LUTEIN 20MG PO SCH (10:25)
[2017-03-25] MEDS: Omeprazole 20 MG *PTOM PO SCH (10:25)
[2017-03-25] MEDS: PAROXETINE 40 MG PO SCH (10:25)
[2017-03-25] MEDS: Metoprolol Succinate 25 MG Tab.ER *PTOM PO SCH ×2 (10:26→21:18)
[2017-03-25] MEDS: THEOPHYLLINE ANHYDROUS 300 MG PO SCH ×2 (10:26→21:18)
[2017-03-25] MEDS: Cetirizine 10 MG Tab *PTOM PO SCH (10:27)
[2017-03-25] MEDS: ALPRAZolam 1 MG Tab PO SCH ×3 (10:30→21:19)
[2017-03-25] MEDS ORDERED: ASPIRIN 81 MG PO SCH (10:30)
[2017-03-25] MEDS ORDERED: guaiFENesin 100 MG/5 ML Soln 5 ML UD Cup PO PRN (10:30)
[2017-03-25] MEDS: Hypromellose 0.3% Ophth Soln 15 ML Bottle EYEBOTH SCH (10:42)
[2017-03-25] MEDS: Acetaminophen 650 MG Tab.ER PO SCH ×2 (10:42→18:44)
[2017-03-25] MEDS: Aspirin 81 MG Tab.EC *PTOM PO SCH (11:00)
[2017-03-25] MEDS: Sodium Chloride 0.9% 1,000 ML IV SCH ×2 (13:38→21:08)
[2017-03-25] MEDS: Sodium Chloride 1 GM Tab PO SCH ×2 (15:04→21:19)
[2017-03-25] MEDS ORDERED: Bimatoprost 0.01% Ophth Soln 5 ML Bottle EYEBOTH SCH (21:00)
[2017-03-25] MEDS ORDERED: traZODone 50 MG Tab *PTOM PO SCH (21:00)
[2017-03-26] MEDS: Acetaminophen 650 MG Tab.ER PO SCH ×2 (02:00→09:27)
[2017-03-26] MEDS: Sodium Chloride 0.9% 1,000 ML IV SCH (05:10)
[2017-03-26 08:18] VITALS: BP 114/67
--- NOTE | 2017-03-26 08:52 | PCM.PN ---
- General Info Date of Service: 03/26/17 Admission Dx/Problem (Free Text): Patient states that she has decreased appetite little epigastric discomfort. She feels sad and blue about bad things that happened to her in her life. She denies chest pain shortness of breath. She's back on Ativan but she still feels anxious. No signs of seizures. - Patient Data Vitals - Most Recent: Last Vital Signs Temp 99.6 F 03/26/17 07:30 Pulse 88 03/26/17 07:30 Resp 18 03/26/17 07:30 BP 114/67 03/26/17 07:30 Pulse Ox 90 L 03/26/17 07:30 Weight - Most Recent: 172 lb 3.2 oz I&O - Last 24 Hours: Intake & Output 03/25/17 03/26/17 03/26/17 22:59 06:59 14:59 Intake Total 2211 Balance 2211 Lab Results Last 24 Hours: Laboratory Results - last 24 hr 03/25/17 03/26/17 03/26/17 Range/Units 14:00 06:15 06:15 WBC 10.8 (4.5-12.0) X10-3/uL RBC 3.69 (3.23-5.20) x10(6)uL Hgb 11.6 (11.5-15.5) g/dL Hct 34.0 (30.0-51.3) % MCV 92.4 (80-96) fL MCH 31.5 (27.7-33.6) pg MCHC 34.1 (32.2-35.4) g/dL RDW 12.6 (11.5-15.5) % Plt Count 493 H (125-369) X10(3)uL MPV 5.6 L (7.4-10.4) fL Neut % (Auto) 65.7 (46-82) % Lymph % (Auto) 23.8 (13-37) % [place] % (Auto) 9.5 (4-12) % Eos % (Auto) 1 (1.0-5.0) % Baso % (Auto) 1 (0-2) % Neut # (Auto) 7.0 (1.6-8.3) # Lymph # (Auto) 2.6 (0.6-5.0) # [place] # (Auto) 1.0 (0.0-1.3) # Eos # (Auto) 0.1 (0.0-0.8) # Baso # (Auto) 0.1 (0.0-0.2) # Sodium 121 L 127 L (135-145) mmol/L Potassium 3.5 3.2 L (3.5-5.3) mmol/L Chloride 86 L* 96 L D (100-110) mmol/L Carbon Dioxide 24 24 (23-29) mmol/L BUN 8 8 (8-23) mg/dL Creatinine 0.6 0.6 (0.6-1.3) mg/dL Est Cr Clr Drug Dosing 61.77 61.77 mL/min Estimated GFR (MDRD) > 60 > 60 (>60) BUN/Creatinine Ratio 13.3 13.3 (9-20) Glucose 98 D 99 (80-116) mg/dL Calcium 9.0 8.4 L (8.6-10.2) mg/dL Med Orders - Current: Current Medications Acetaminophen (Tylenol Arthritis Pain) 1,300 mg PO Q8H [facility] Last Admin: 03/26/17 02:00 Dose: 1,300 mg Albuterol (Ventolin Hfa) 0 gm INH Q4H PRN PRN Reason: Wheezing Albuterol/Ipratropium (Duoneb 3.0-0.5 Mg/3 Ml) 3 ml NEB QID PRN PRN Reason: breathing Alprazolam (Xanax) 2 mg PO TID [facility] Last Admin: 03/25/17 21:19 Dose: 2 mg Artificial Tears (Genteal Mild To Moderate Ophth Soln) 0 ml EYEBOTH DAILY [facility] Last Admin: 03/25/17 10:42 Dose: 1 drop Aspirin (Halfprin) 81 mg PO DAILY [facility] Last Admin: 03/25/17 11:00 Dose: 81 mg Benzonatate (Tessalon Perles) 100 mg PO QID PRN PRN Reason: Cough Bimatoprost (Lumigan 0.01% Ophth Soln) 0 ml EYEBOTH BEDTIME [facility] Last Admin: 03/25/17 21:17 Dose: 1 drop Cetirizine HCl (Zyrtec) 10 mg PO DAILY [facility] Last Admin: 03/25/17 10:27 Dose: 10 mg Fluticasone Propionate (Flonase) 0 gm NASBOTH BID [facility] Last Admin: 03/25/17 21:18 Dose: 2 spray Guaifenesin (Robitussin) 200 mg PO Q6H PRN PRN Reason: COUGH Sodium Chloride (Normal Saline) 1,000 mls @ 125 mls/hr IV ASDIRECTED [facility] Last Admin: 03/26/17 05:10 Dose: 125 mls/hr Losartan Potassium (Cozaar) 100 mg PO DAILY [facility] Last Admin: 03/25/17 10:21 Dose: 100 mg Metoprolol Succinate (Toprol Xl) 25 mg PO BID [facility] Last Admin: 03/25/17 21:18 Dose: 25 mg Naproxen (Naprosyn) 500 mg PO BID [facility] Last Admin: 03/25/17 21:15 Dose: 500 mg Non-Formulary Medication 1 Each ( Fluticasone/Salmeterol [Advair 250-50] 1 Puff ) * Ptom 1 puff INH BID [facility] Last Admin: 03/25/17 21:18 Dose: 1 puff Lutein 20mg 0 each PO DAILY [facility] Last Admin: 03/25/17 10:25 Dose: 1 each Omeprazole 20 Mg * (Ptom) 20 mg PO DAILY [facility] Last Admin: 03/25/17 10:25 Dose: 20 mg Theophylline Anhydrous 300 Mg * Ptom 300 mg PO BID [facility] Last Admin: 03/25/17 21:18 Dose: 300 mg Paroxetine HCl (Paxil) 60 mg PO DAILY [facility] Last Admin: 03/25/17 10:25 Dose: 60 mg Senna/Docusate Sodium (Senna Plus) 1 tab PO BEDTIME PRN PRN Reason: CONSTIPATION Sodium Chloride (Saline Flush) 10 ml FLUSH ASDIRECTED PRN PRN Reason: Keep Vein Open Sodium Chloride (Sodium Chloride) 1 gm PO TID [facility] Last Admin: 03/25/17 21:19 Dose: Not Given Trazodone HCl (Trazodone) 50 mg PO BEDTIME [facility] Last Admin: 03/25/17 21:18 Dose: 50 mg Discontinued Medications Sodium Chloride (Normal Saline) 500 mls @ 500 mls/hr IV .BOLUS ONE Stop: 03/25/17 05:43 Last Admin: 03/25/17 05:10 Dose: 500 mls/hr Sodium Chloride (Normal Saline) 1,000 mls @ 150 mls/hr IV ASDIRECTED PADMINI Lorazepam (Ativan) 1 mg PO ONETIME ONE Stop: 03/25/17 04:11 Last Admin: 03/25/17 04:19 Dose: 1 mg Lorazepam (Ativan) 1 mg IVPUSH ONETIME ONE Stop: 03/25/17 04:44 Last Admin: 03/25/17 05:11 Dose: 1 mg Non-Formulary Medication (Triamterene/Hydrochlorothiazid [Triamterene-Hctz 37.5- 25 Mg]) 1 each PO DAILY PADMINI - Exam General: Alert, Oriented, Cooperative Neck: Supple Lungs: Clear to Auscultation, Normal Respiratory Effort Cardiovascular: Regular Rate, Regular Rhythm, No Murmurs Neurological: Normal Speech, Normal Tone Psy/Mental Status: Alert, Other (Blunted affect with little crying as she reminisces about her life.) - Problem List & Annotations (1) Benzodiazepine withdrawal SNOMED Code(s): 547927056 Code(s): F13.239 - SEDATV/HYP/ANXIOLYTC DEPENDENCE W WITHDRAWAL, UNSP Status: Acute Current Visit: Yes (2) Witnessed seizure SNOMED Code(s): 84440891 Code(s): R56.9 - UNSPECIFIED CONVULSIONS Status: Acute Current Visit: Yes Annotation/Comment:: Asha received Ativan 1 mg po while in the ED, and then went to the commode to void about 15 minutes later. She subsequently had a generalized tonic-clonic seizure which lasted about 1 minute and subsided spontaneously. She is currently post ictal, and will be admitted to Observation for suspected withdrawl seizure (Xanax). An IV was inserted, and she received Ativan 1 mg IV prior to transfer. (3) Anxiety SNOMED Code(s): 40490574 Code(s): F41.9 - ANXIETY DISORDER, UNSPECIFIED Status: Acute Priority: High Current Visit: No Annotation/Comment:: cont. alpazolam, SSRI (4) Hyponatremia SNOMED Code(s): 13711555 Code(s): E87.1 - HYPO-OSMOLALITY AND HYPONATREMIA Status: Acute Current Visit: No (5) Palliative care status SNOMED Code(s): 158048449 Code(s): Z51.5 - ENCOUNTER FOR PALLIATIVE CARE Status: Acute Current Visit: Yes (6) Depression with anxiety SNOMED Code(s): 609324203 Code(s): F41.8 - OTHER SPECIFIED ANXIETY DISORDERS Status: Acute Current Visit: Yes - Problem List Review Problem List Initiated/Reviewed/Updated: Yes - My Orders Last 24 Hours: My Active Orders 03/25/17 09:00 ALPRAZolam [Xanax] 2 mg PO TID Cetirizine [ZyrTEC] 10 mg PO DAILY Fluticasone Propionate [Flonase] 0 gm NASBOTH BID Fluticasone/Salmeterol [Advair 250-50] 1 puff INH BID Hypromellose [GenTeal Mild to Moderate Ophth Soln] 0 ml EYEBOTH DAILY Losartan [Cozaar] 100 mg PO DAILY Metoprolol Succinate [Toprol XL] 25 mg PO BID Naproxen [Naprosyn] 500 mg PO BID Non-Formulary Medication [NF Drug] 0 each PO DAILY Omeprazole [Prilosec] 20 mg PO DAILY PARoxetine [Paxil] 60 mg PO DAILY Theophylline Anhydrous [Theophylline Anhydrous] 300 mg PO BID 03/25/17 10:00 Acetaminophen [Tylenol Arthritis Pain] 1,300 mg PO Q8H 03/25/17 10:30 Aspirin [Halfprin] 81 mg PO DAILY guaiFENesin [Robitussin] 200 mg PO Q6H PRN 03/25/17 14:40 Sodium Chloride 1 gm PO TID 03/25/17 16:34 Ang Chest [CT] Routine 03/25/17 16:39 Head wo Cont [CT] Routine 03/25/17 21:00 Bimatoprost [LUMIGAN 0.01% Ophth Soln] 0 ml EYEBOTH BEDTIME Docusate Sodium/Sennosides [Senna Plus] 1 tab PO BEDTIME PRN traZODone 50 mg PO BEDTIME 03/25/17 Lunch Regular Diet [DIET] - Plan Plan:: 1 discharge to home. 2. Salt tablet once a day. 3. Hold triamterene hydrochlorothiazide. This could be a factor in her hyponatremia. 4. Continue Paxil although that could be contributing to the hyponatremia 5. Patient back on her prescription Xanax and I think this is helping and her muscle aches and jitteriness is gone.
--- NOTE | 2017-03-26 09:01 | PCM.DCSUM1 ---
Discharge Summary - Hospital Course Free Text/Narrative:: Hospital course-patient was put on normal saline and regular diet. Seizure precautions were used. I believe her was most likely caused by hyponatremia. I gave her salt tablet and some sodium in the IV. By the next morning she went from 120-127. Cognitively she was normal except that she was sad and depressed about her life. She walked with a walker and got to back to her normal ambulation. Initially thought she was on triamterene/hydrochlorothiazide because that's what it was on home her list in the clinic. I stopped that. And it turns out when pharmacy reviewed her meds she was not on that. We restarted her Xanax and her achiness and jitteriness went away. I believe this may possibly why she came in because she was out and is withdrawing. I talked to Dr. Velez he states he has a prescription for her. Discharge her home on 1 salt tablet a day. Her hyponatremia may become for the Paxil. Discussed with her primary and he does not want to stop that at this time. Recheck her in a week with Dr. Deleon with a panel 8. Brief History: This is a 72-year-old female patient came to the ER last night because of shortness of breath, chest pain and anxiety. She is on 2 mg of Xanax 3 times a day for years. She ran out last week she thinks. She was seen in the clinic yesterday and they gave her BuSpar. While she was here she had a seizure and was postictal according to the ER note. She has no history of seizures. She states she feels little short of breath, she is aching all over and feels nervous. She denies fevers, chills, cough, wheezing, weakness. - Discharge Data Discharge Date: 03/26/17 Discharge Disposition: Home, Self-Care 01 Condition: Good - Discharge Diagnosis/Problem(s) (1) Benzodiazepine withdrawal SNOMED Code(s): 630665654 ICD Code: F13.239 - SEDATV/HYP/ANXIOLYTC DEPENDENCE W WITHDRAWAL, UNSP Status: Acute Current Visit: Yes (2) Witnessed seizure SNOMED Code(s): 44647204 ICD Code: R56.9 - UNSPECIFIED CONVULSIONS Status: Acute Current Visit: Yes Problem Details: Asha received Ativan 1 mg po while in the ED, and then went to the commode to void about 15 minutes later. She subsequently had a generalized tonic-clonic seizure which lasted about 1 minute and subsided spontaneously. She is currently post ictal, and will be admitted to Observation for suspected withdrawl seizure (Xanax). An IV was inserted, and she received Ativan 1 mg IV prior to transfer. (3) Anxiety SNOMED Code(s): 28414349 ICD Code: F41.9 - ANXIETY DISORDER, UNSPECIFIED Status: Acute Priority: High Current Visit: No Problem Details: cont. alpazolam, SSRI (4) Hyponatremia SNOMED Code(s): 36037827 ICD Code: E87.1 - HYPO-OSMOLALITY AND HYPONATREMIA Status: Acute Current Visit: No (5) Palliative care status SNOMED Code(s): 402710998 ICD Code: Z51.5 - ENCOUNTER FOR PALLIATIVE CARE Status: Acute Current Visit: Yes (6) Depression with anxiety SNOMED Code(s): 908569970 ICD Code: F41.8 - OTHER SPECIFIED ANXIETY DISORDERS Status: Acute Current Visit: Yes - Patient Instructions Diet: Regular Diet as Tolerated Activity: As Tolerated Driving: Do Not Drive Showering/Bathing: May Shower Notify Provider of: Increased Pain Other/Special Instructions: 1. Recheck with Dr. Velez at the end of next week. Panel 8 before the appointment. - Discharge Plan Prescriptions/Med Rec: Sodium Chloride 1 gm PO DAILY #30 tablet Home Medications: Home Meds ALPRAZolam 2 mg PO TID 09/24/13 [History] Albuterol [Ventolin HFA] 2 puff INH Q4H PRN 09/24/13 [History] Fluticasone Propionate [Flonase] 2 sprays NASBOTH BID 09/24/13 [History] Lutein 20 mg PO BID 09/24/13 [History] Omeprazole [Prilosec] 20 mg PO DAILY 09/24/13 [History] PARoxetine [Paxil] 60 mg PO DAILY 09/24/13 [History] Fluticasone/Salmeterol [Advair 250-50] 1 puff INH BID 07/14/14 [History] Losartan [Cozaar] 100 mg PO DAILY 12/19/14 [History] Cetirizine [ZyrTEC] 10 mg PO DAILY 02/27/16 [History] Theophylline Anhydrous 300 mg PO BID 02/27/16 [History] Naproxen 500 mg PO BID PRN 09/03/16 [History] traZODone 50 mg PO BEDTIME 09/03/16 [History] Acetaminophen [Tylenol Arthritis] 1,300 mg PO Q8H 09/04/16 [History] Albuterol/Ipratropium [DuoNeb 3.0-0.5 MG/3 ML] 3 ml IH QID PRN 09/04/16 [History ] Bimatoprost [Lumigan 0.01% Ophth Soln] 1 drop EYEBOTH BEDTIME 09/04/16 [History] Metoprolol Succinate [Toprol XL] 25 mg PO BID 09/04/16 [History] Docusate Sodium/Sennosides [Senokot-S] 1 tab PO BID PRN 09/23/16 [History] Hypromellose [GenTeal Mild to Moderate Ophth Soln] 1 drop EYEBOTH DAILY [History] Aspirin [Halfprin] 81 mg PO DAILY 03/25/17 [History] Benzonatate [Tessalon Perles] 100 mg PO QID PRN 03/25/17 [History] Budesonide [Pulmicort] 1 unit INH TID 03/25/17 [History] Calcium Carbonate/Vitamin D3 [Calcium 600-Vit D3 400 Tablet] 1 tab PO BID [History] Dextran 70/Hypromellose [Artificial Tears] 1 drop EYEBOTH ASDIRECTED PRN [History] Multivitamin [Multi-Vitamin Daily] 1 tab PO DAILY 03/25/17 [History] Polyethylene Glycol 3350 [MiraLAX] 17 gram PO BID 03/25/17 [History] busPIRone [Buspar] 7.5 mg PO BID 03/25/17 [History] Aspirin [Halfprin] 81 mg PO DAILY tab.ec 03/26/17 [Rx] Sodium Chloride 1 gm PO DAILY #30 tablet 03/26/17 [Rx] Forms: ED Department Discharge Referrals: Cristian Velez MD [Primary Care Provider] - - Discharge Summary/Plan Comment DC Time >30 min.: No - Patient Data Vitals - Most Recent: Last Vital Signs Temp 99.6 F 03/26/17 07:30 Pulse 88 03/26/17 07:30 Resp 18 03/26/17 07:30 BP 114/67 03/26/17 07:30 Pulse Ox 90 L 03/26/17 07:30 Weight - Most Recent: 172 lb 3.2 oz I&O - Last 24 hours: Intake & Output 03/25/17 03/26/17 03/26/17 22:59 06:59 14:59 Intake Total 2211 Balance 2211 Lab Results - Last 24 hrs: Laboratory Results - last 24 hr 03/25/17 03/26/17 03/26/17 Range/Units 14:00 06:15 06:15 WBC 10.8 (4.5-12.0) X10-3/uL RBC 3.69 (3.23-5.20) x10(6)uL Hgb 11.6 (11.5-15.5) g/dL Hct 34.0 (30.0-51.3) % MCV 92.4 (80-96) fL MCH 31.5 (27.7-33.6) pg MCHC 34.1 (32.2-35.4) g/dL RDW 12.6 (11.5-15.5) % Plt Count 493 H (125-369) X10(3)uL MPV 5.6 L (7.4-10.4) fL Neut % (Auto) 65.7 (46-82) % Lymph % (Auto) 23.8 (13-37) % Williams % (Auto) 9.5 (4-12) % Eos % (Auto) 1 (1.0-5.0) % Baso % (Auto) 1 (0-2) % Neut # (Auto) 7.0 (1.6-8.3) # Lymph # (Auto) 2.6 (0.6-5.0) # Williams # (Auto) 1.0 (0.0-1.3) # Eos # (Auto) 0.1 (0.0-0.8) # Baso # (Auto) 0.1 (0.0-0.2) # Sodium 121 L 127 L (135-145) mmol/L Potassium 3.5 3.2 L (3.5-5.3) mmol/L Chloride 86 L* 96 L D (100-110) mmol/L Carbon Dioxide 24 24 (23-29) mmol/L BUN 8 8 (8-23) mg/dL Creatinine 0.6 0.6 (0.6-1.3) mg/dL Est Cr Clr Drug Dosing 61.77 61.77 mL/min Estimated GFR (MDRD) > 60 > 60 (>60) BUN/Creatinine Ratio 13.3 13.3 (9-20) Glucose 98 D 99 (80-116) mg/dL Calcium 9.0 8.4 L (8.6-10.2) mg/dL Med Orders - Current: Current Medications Acetaminophen (Tylenol Arthritis Pain) 1,300 mg PO Q8H [facility] Last Admin: 03/26/17 02:00 Dose: 1,300 mg Albuterol (Ventolin Hfa) 0 gm INH Q4H PRN PRN Reason: Wheezing Albuterol/Ipratropium (Duoneb 3.0-0.5 Mg/3 Ml) 3 ml NEB QID PRN PRN Reason: breathing Alprazolam (Xanax) 2 mg PO TID [facility] Last Admin: 03/25/17 21:19 Dose: 2 mg Artificial Tears (Genteal Mild To Moderate Ophth Soln) 0 ml EYEBOTH DAILY [facility] Last Admin: 03/25/17 10:42 Dose: 1 drop Aspirin (Halfprin) 81 mg PO DAILY [facility] Last Admin: 03/25/17 11:00 Dose: 81 mg Benzonatate (Tessalon Perles) 100 mg PO QID PRN PRN Reason: Cough Bimatoprost (Lumigan 0.01% Ophth Soln) 0 ml EYEBOTH BEDTIME [facility] Last Admin: 03/25/17 21:17 Dose: 1 drop Cetirizine HCl (Zyrtec) 10 mg PO DAILY [facility] Last Admin: 03/25/17 10:27 Dose: 10 mg Fluticasone Propionate (Flonase) 0 gm NASBOTH BID [facility] Last Admin: 03/25/17 21:18 Dose: 2 spray Guaifenesin (Robitussin) 200 mg PO Q6H PRN PRN Reason: COUGH Sodium Chloride (Normal Saline) 1,000 mls @ 125 mls/hr IV ASDIRECTED [facility] Last Admin: 03/26/17 05:10 Dose: 125 mls/hr Losartan Potassium (Cozaar) 100 mg PO DAILY [facility] Last Admin: 03/25/17 10:21 Dose: 100 mg Metoprolol Succinate (Toprol Xl) 25 mg PO BID [facility] Last Admin: 03/25/17 21:18 Dose: 25 mg Naproxen (Naprosyn) 500 mg PO BID [facility] Last Admin: 03/25/17 21:15 Dose: 500 mg Non-Formulary Medication 1 Each ( Fluticasone/Salmeterol [Advair 250-50] 1 Puff ) * Ptom 1 puff INH BID [facility] Last Admin: 03/25/17 21:18 Dose: 1 puff Lutein 20mg 0 each PO DAILY [facility] Last Admin: 03/25/17 10:25 Dose: 1 each Omeprazole 20 Mg * (Ptom) 20 mg PO DAILY [facility] Last Admin: 03/25/17 10:25 Dose: 20 mg Theophylline Anhydrous 300 Mg * Ptom 300 mg PO BID [facility] Last Admin: 03/25/17 21:18 Dose: 300 mg Paroxetine HCl (Paxil) 60 mg PO DAILY [facility] Last Admin: 03/25/17 10:25 Dose: 60 mg Senna/Docusate Sodium (Senna Plus) 1 tab PO BEDTIME PRN PRN Reason: CONSTIPATION Sodium Chloride (Saline Flush) 10 ml FLUSH ASDIRECTED PRN PRN Reason: Keep Vein Open Sodium Chloride (Sodium Chloride) 1 gm PO TID [facility] Last Admin: 03/25/17 21:19 Dose: Not Given Trazodone HCl (Trazodone) 50 mg PO BEDTIME [facility] Last Admin: 03/25/17 21:18 Dose: 50 mg Discontinued Medications Sodium Chloride (Normal Saline) 500 mls @ 500 mls/hr IV .BOLUS ONE Stop: 03/25/17 05:43 Last Admin: 03/25/17 05:10 Dose: 500 mls/hr Sodium Chloride (Normal Saline) 1,000 mls @ 150 mls/hr IV ASDIRECTED [facility] Lorazepam (Ativan) 1 mg PO ONETIME ONE Stop: 03/25/17 04:11 Last Admin: 03/25/17 04:19 Dose: 1 mg Lorazepam (Ativan) 1 mg IVPUSH ONETIME ONE Stop: 03/25/17 04:44 Last Admin: 03/25/17 05:11 Dose: 1 mg Non-Formulary Medication (Triamterene/Hydrochlorothiazid [Triamterene-Hctz 37.5- 25 Mg]) 1 each PO DAILY PADMINI *Q Meaningful Use (DIS) - VTE *Q VTE Criteria *Q: - Stroke *Q Stroke Criteria *Q: - AMI *Q AMI Criteria *Q:
[2017-03-26] MEDS: ALPRAZolam 1 MG Tab PO SCH (09:11)
[2017-03-26] MEDS: Sodium Chloride 1 GM Tab PO SCH (09:12)
[2017-03-26] MEDS: SALMETEROL INH SCH (09:15)
[2017-03-26] MEDS: Aspirin 81 MG Tab.EC *PTOM PO SCH (09:15)
[2017-03-26] MEDS: FLUTICASONE INH SCH (09:15)
[2017-03-26] MEDS: Hypromellose 0.3% Ophth Soln 15 ML Bottle EYEBOTH SCH (09:15)
[2017-03-26] MEDS: Metoprolol Succinate 25 MG Tab.ER *PTOM PO SCH (09:16)
[2017-03-26] MEDS: THEOPHYLLINE ANHYDROUS 300 MG PO SCH (09:17)
[2017-03-26] MEDS: NAPROXEN 500 MG PO SCH (09:17)
[2017-03-26] MEDS: Losartan 100 MG Tab *PTOM PO SCH (09:18)
[2017-03-26] MEDS: Omeprazole 20 MG *PTOM PO SCH (09:22)
[2017-03-26] MEDS: PAROXETINE 40 MG PO SCH (09:22)
[2017-03-26] MEDS: Cetirizine 10 MG Tab *PTOM PO SCH (09:24)
[2017-03-26] MEDS: Fluticasone Propionate Nasal Spray 16 GM Bottle NASBOTH SCH (09:24)
[2017-03-26] MEDS: LUTEIN 20MG PO SCH (09:25)
== END 2017-03-26 13:00 | disposition home or self-care (01) ==
LOC: FB.ED 03:25 → FB.MS 05:06
PROVIDERS: ADMIT Family Medicine; ATTEND Family Medicine
DX: F13.239 Sedative, hypnotic or anxiolytic dependence with withdrawal, unspecified (principal); R56.9 Unspecified convulsions; E87.1 Hypo-osmolality and hyponatremia; F41.8 Other specified anxiety disorders; I10 Essential (primary) hypertension; J45.909 Unspecified asthma, uncomplicated; J43.9 Emphysema, unspecified; Z79.51 Long term (current) use of inhaled steroids; Z79.82 Long term (current) use of aspirin; Z79.899 Other long term (current) drug therapy; Z88.1 Allergy status to other antibiotic agents; Z88.2 Allergy status to sulfonamides; Z88.6 Allergy status to analgesic agent; M19.90 Unspecified osteoarthritis, unspecified site; Z98.51 Tubal ligation status; Z90.710 Acquired absence of both cervix and uterus
CPT/HCPCS: 36415; 70450; 80048; 80053; 85025; 96361; 96374; 99285; A9270; G0378; J2060; J7040; 99217; 99219

== ENCOUNTER 2017-12-21 08:50 | Day surgery (SDC) | payer MEDICARE, OTHER ==
[~2017-12-21 08:50] MED LIST: Lactated Ringers 1,000 ML IV SCH; Sodium Chloride 0.9% 10 ML Syringe FLUSH PRN
[2017-12-21] MEDS ORDERED: Propofol 200 MG/20 ML SDV IV ONE (10:30)
--- NOTE | 2017-12-21 10:51 | PCM.OPNOTE ---
- General Post-Op/Procedure Note Date of Surgery/Procedure: 12/21/17 Operative Procedure(s): egd with bx Findings: gastroduodenitis fundic gland hyperplasia hiatal hernia esophagitis Pre Op Diagnosis: epigastric abd pain gerd Post-Op Diagnosis: gastroduodenitis. fundic gland hyperplasia. hiatal hernia. esophagitis Anesthesia Technique: [facility] [place] Primary Surgeon: Ulises Portillo Anesthesia Provider: Bc Hoover Pathology: stomach esophagus and duodenum Complications: None Condition: Good Free Text/Narrative:: see dictation
--- NOTE | 2017-12-21 11:16 | OR ---
DATE OF OPERATION: 12/21/2017 SURGEON: Ulises Portillo MD PROCEDURES PERFORMED: EGD with cold forceps biopsy. PREOPERATIVE DIAGNOSES: Epigastric pain and history of reflux disease. POSTOPERATIVE DIAGNOSES: Gastroduodenitis, what appears to be profound fundic gland hyperplasia; hiatal hernia; and esophagitis. INDICATIONS FOR PROCEDURE: This 72-year-old white female was referred with the above-mentioned complaints. She was offered and accepted an EGD. DESCRIPTION OF PROCEDURE: After an excellent IV sedation was administered, the bite block was inserted. The flexible endoscope was passed without difficulty down the patient's esophagus and into the stomach. The stomach was insufflated. Scope was passed through the pylorus, to the second portion of the duodenum and slowly withdrawn. The following findings were noted. First portion of the duodenum, inflammation, biopsies were taken. Stomach demonstrated diffuse gastritis as well as a hiatal hernia. GE junction measured at 35 cm. The antrum was markedly inflamed, and the main body of the stomach appeared to have a carpet of fundic gland hyperplasia. Multiple biopsies were taken. GE junction, just above the GE junction was some erythema suggestive of esophagitis. Multiple biopsies were taken. The remainder of our esophageal exam was unremarkable. The stomach was deflated. Scope was removed. The patient tolerated the procedure well and was taken to recovery room in a good condition. /[id number] /MODL
[2017-12-21 11:54] VITALS: BP 149/101
== END 2017-12-21 11:40 | disposition home or self-care (01) ==
LOC: FB.SDS 08:50
PROVIDERS: ATTEND Surgery
DX: K29.50 Unspecified chronic gastritis without bleeding (principal); K29.80 Duodenitis without bleeding; K20.8 Other esophagitis; K44.9 Diaphragmatic hernia without obstruction or gangrene; E78.5 Hyperlipidemia, unspecified; I10 Essential (primary) hypertension; J44.9 Chronic obstructive pulmonary disease, unspecified; K21.9 Gastro-esophageal reflux disease without esophagitis; F41.9 Anxiety disorder, unspecified; F32.9 Major depressive disorder, single episode, unspecified; Z87.891 Personal history of nicotine dependence; Z79.51 Long term (current) use of inhaled steroids; Z79.899 Other long term (current) drug therapy; Z88.6 Allergy status to analgesic agent; Z88.2 Allergy status to sulfonamides
CPT/HCPCS: 00731; 43239; 88305; 88313; 88342; J2704; J7120

== ENCOUNTER 2021-06-16 10:38 | Inpatient (IN) | payer MEDICARE, OTHER ==
--- NOTE | 2021-06-16 12:42 | EDM.PDOC ---
ED HPI GENERAL MEDICAL PROBLEM - General Stated Complaint: DIZZY/PAIN Time Seen by Provider: 06/16/21 10:40 Source of Information: Reports: Patient, Family History Limitations: Reports: No Limitations - History of Present Illness INITIAL COMMENTS - FREE TEXT/NARRATIVE: Patient is a 79 YO WF who presented to the ED because of weakness, confusion for month which is progressively getting worse. For the past 4 days she c/o o dizziness and she is so weak that she can't get up from her recline. there is no N/V/D. No Uti s/s. No fever, chills, cough or cold symptoms. Head Pain Score (Numeric/FACES): 4 Back Pain Score (Numeric/FACES): 8 - Related Data Allergies Allergy/AdvReac Type Severity Reaction Status Date / Time ibuprofen AdvReac Mild Nausea and Verified 06/18/21 07:22 Vomiting sulfamethoxazole AdvReac Mild Nausea and Verified 07/22/18 15:12 [From Bactrim] Vomiting trimethoprim [From Bactrim] AdvReac Mild Nausea and Verified 07/22/18 15:12 Vomiting Home Meds: Home Meds Albuterol [Ventolin HFA] 2 puff INH Q4H PRN 09/24/13 [History] Fluticasone Propionate [Flonase] 2 sprays NASBOTH DAILY PRN 09/24/13 [History] PARoxetine [Paxil] 40 mg PO DAILY 09/24/13 [History] Fluticasone/Salmeterol [Advair 250-50] 1 puff INH BID 07/14/14 [History] Losartan [Cozaar] 100 mg PO DAILY 12/19/14 [History] Acetaminophen [Tylenol Arthritis] 1,300 mg PO Q8H 09/04/16 [History] Albuterol/Ipratropium [DuoNeb 3.0-0.5 MG/3 ML] 3 ml IH QID 09/04/16 [History] Bimatoprost [Lumigan 0.01% Ophth Soln] 1 drop EYEBOTH BEDTIME 09/04/16 [History] Metoprolol Succinate [Toprol XL] 50 mg PO DAILY 09/04/16 [History] Docusate Sodium/Sennosides [Senokot-S] 1 tab PO BID PRN 09/23/16 [History] Hypromellose [GenTeal Mild to Moderate Ophth Soln] 1 drop EYEBOTH DAILY PRN 09/23/16 [History] Benzonatate [Tessalon Perles] 100 mg PO TID 03/25/17 [History] Calcium Carbonate/Vitamin D3 [Calcium 600-Vit D3 400 Tablet] 1 tab PO BID 03/25/17 [History] Multivitamin [Multi-Vitamin Daily] 1 tab PO DAILY 03/25/17 [History] Polyethylene Glycol 3350 [MiraLAX] 17 gram PO DAILY PRN 03/25/17 [History] guaiFENesin [Robitussin] 200 mg PO Q6H PRN 12/20/17 [History] ALPRAZolam [Alprazolam] 1.5 mg PO TID 06/16/21 [History] Budesonide [Pulmicort] 0.5 mg IH BID 06/16/21 [History] Furosemide [Lasix] 20 mg PO DAILY PRN 06/16/21 [History] Omeprazole 20 mg PO DAILY 06/16/21 [History] Rosuvastatin [Crestor] 10 mg PO DAILY 06/16/21 [History] methIMAzole [Methimazole] 5 mg PO DAILY 06/16/21 [History] traZODone 150 mg PO BEDTIME 06/16/21 [History] Past Medical History HEENT History: Reports: Cataract, Glaucoma, Impaired Vision Cardiovascular History: Reports: Hypertension Respiratory History: Reports: Asthma, COPD, Pneumonia, Recurrent Other Respiratory History: PULMONARY EMPHYSEMA Gastrointestinal History: Reports: GERD Genitourinary History: Reports: Urinary Incontinence [employer] History: Reports: Musculoskeletal History: Reports: Arthritis, Osteoarthritis, Osteoporosis Neurological History: Reports: Headaches, Chronic, Other (See Below) Other Neuro History: COMMUNICATION HYDROCEPHALUS Psychiatric History: Reports: Anxiety, Depression, Panic Attack Endocrine/Metabolic History: Reports: Obesity/BMI 30+ Other Hematologic History: blood transfusion as a baby x1 Immunologic History: Reports: None Oncologic (Cancer) History: Reports: None Dermatologic History: Reports: None - Past Surgical History Head Surgeries/Procedures: Reports: None HEENT Surgical History: Reports: Cataract Surgery, Tonsillectomy Cardiovascular Surgical History: Reports: None Respiratory Surgical History: Reports: None GI Surgical History: Reports: Appendectomy, Cholecystectomy, Colonoscopy Female Surgical History: Reports: Hysterectomy, Tubal Ligation Endocrine Surgical History: Reports: None Neurological Surgical History: Reports: None Oncologic Surgical History: Reports: None Dermatological Surgical History: Reports: None Social & Family History - Family History Family Medical History: No Pertinent Family History - Tobacco Use Tobacco Use Status *Q: Former Tobacco User Used Tobacco, but Quit: Yes Month/Year Tobacco Last Used: years ago - Caffeine Use Caffeine Use: Reports: Coffee - Recreational Drug Use Recreational Drug Use: No ED ROS GENERAL - Review of Systems Review Of Systems: See Below Constitutional: Reports: Weakness HEENT: Reports: No Symptoms, Vertigo Cardiovascular: Reports: No Symptoms Endocrine: Reports: No Symptoms GI/Abdominal: Reports: No Symptoms : Reports: No Symptoms Musculoskeletal: Reports: No Symptoms Skin: Reports: No Symptoms Neurological: Reports: Confusion, Dizziness Psychiatric: Reports: No Symptoms Hematologic/Lymphatic: Reports: No Symptoms ED EXAM, GENERAL - Physical Exam Exam: See Below Exam Limited By: No Limitations General Appearance: Alert, No Apparent Distress Ears: Normal External Exam, Normal Canal Nose: Normal Inspection, Normal Mucosa, No Blood Throat/Mouth: Normal Inspection, Normal Lips, Normal Teeth, Normal Gums Head: Atraumatic, Normocephalic Neck: Normal Inspection, Supple, Non-Tender, Full Range of Motion Respiratory/Chest: No Respiratory Distress, Lungs Clear, Normal Breath Sounds, N o Accessory Muscle Use, Chest Non-Tender Cardiovascular: Normal Peripheral Pulses, Regular Rate, Rhythm, No Edema, No Gallop, No JVD, No Murmur, No Rub GI/Abdominal: Normal Bowel Sounds, Soft, Non-Tender, No Organomegaly, No Distention, No Abnormal Bruit Extremities: Normal Inspection, Normal Range of Motion, Non-Tender, No Pedal Edema Neurological: Confused Skin Exam: Warm #1 Interpretation EKG Date: 06/16/21 Time: 11:41 Rhythm: NSR Rate (Beats/Min): 85 [place]: Normal P-Wave: Present QRS: Normal ST-T: Normal QT: Normal [place]/PQ Interval: 151 Comparison: NA - No Prior EKG EKG Interpretation Comments: NSR Course - Vital Signs Last Recorded V/S: Last Vital Signs Temp 36.6 C 06/18/21 07:37 Pulse 80 06/18/21 07:50 Resp 18 06/18/21 07:37 BP 145/73 H 06/18/21 07:37 Pulse Ox 96 06/18/21 07:37 - Orders/Labs/Meds Orders: Active Orders 24 hr Category Date Time Status Calcium Carbonate [Oyster Shell Calcium] Med 06/17/21 10:00 Active 500 mg PO BID Latanoprost [Xalatan 0.005% Ophth Soln] Med 06/17/21 21:00 Active 0 ml EYEBOTH BEDTIME Losartan [Cozaar] Med 06/17/21 09:00 Active 100 mg PO DAILY Metoprolol Succinate [Toprol XL] Med 06/17/21 09:00 Active 50 mg PO DAILY Multivitamins [Tab-A-Melina] Med 06/17/21 10:00 Active 1 tab PO DAILY Rosuvastatin [Crestor] Med 06/17/21 09:00 Active 10 mg PO DAILY methIMAzole Med 06/17/21 09:00 Active 5 mg PO DAILY Medication Orders Acetaminophen (Acetaminophen 650 Mg Tab.Er) 1,300 mg PO Q8H [facility] Admin: 06/18/21 06:26 Dose: 1,300 mg Documented by: Admin: 06/17/21 22:55 Dose: 1,300 mg Documented by: Admin: 06/17/21 14:33 Dose: 1,300 mg Documented by: Admin: 06/17/21 06:00 Dose: 1,300 mg Documented by: Admin: 06/16/21 21:41 Dose: 1,300 mg Documented by: Admin: 06/16/21 16:07 Dose: 1,300 mg Documented by: ANATOLY Albuterol (Albuterol 8 Gm Inhaler) 0 gm INH Q4H PRN PRN Reason: Wheezing Albuterol/Ipratropium (Albuterol/Ipratropium 3.0-0.5 Mg/3 Ml Neb Soln) 3 ml INH QIDRT [facility] Last Admin: 06/18/21 07:37 Dose: 3 ml Documented by: Admin: 06/17/21 22:52 Dose: 3 ml Documented by: Admin: 06/17/21 16:11 Dose: 3 ml Documented by: Admin: 06/17/21 10:18 Dose: 3 ml Documented by: Admin: 06/17/21 06:03 Dose: 3 ml Documented by: Admin: 06/16/21 21:39 Dose: 3 ml Documented by: Admin: 06/16/21 16:17 Dose: 3 ml Documented by: ANATOLY Alprazolam (Alprazolam 0.5 Mg Tab) 1.5 mg PO TID@0600,1200,1700 [facility] Last Admin: 06/18/21 06:33 Dose: 1.5 mg Documented by: Admin: 06/17/21 17:10 Dose: 1.5 mg Documented by: Admin: 06/17/21 11:30 Dose: 1.5 mg Documented by: Admin: 06/17/21 06:02 Dose: 1.5 mg Documented by: Admin: 06/16/21 16:29 Dose: 1.5 mg Documented by: ANATOLY Artificial Tears (Hypromellose 0.3% Ophth Soln 15 Ml Bottle) 0 ml EYEBOTH DAILY PRN PRN Reason: Dry Eyes Benzonatate (Benzonatate 100 Mg Cap) 100 mg PO TID [facility] Last Admin: 06/17/21 22:54 Dose: 100 mg Documented by: Admin: 06/17/21 14:32 Dose: 100 mg Documented by: Admin: 06/17/21 09:00 Dose: 100 mg Documented by: Admin: 06/16/21 21:37 Dose: 100 mg Documented by: Admin: 06/16/21 16:11 Dose: 100 mg Documented by: ANATOLY Budesonide (Budesonide 0.5 Mg/2 Ml Neb Susp) 0.5 mg INH BID [facility] Last Admin: 06/17/21 22:54 Dose: 0.5 mg Documented by: Admin: 06/17/21 09:06 Dose: 0.5 mg Documented by: Admin: 06/16/21 21:40 Dose: 0.5 mg Documented by: NIMISHA Calcium Carbonate/Glycine (Calcium Carbonate 500 Mg Tablet) 500 mg PO BID [facility] Last Admin: 06/17/21 22:53 Dose: 500 mg Documented by: Admin: 06/17/21 10:16 Dose: 500 mg Documented by: ANATOLY Ceftriaxone Sodium (Ceftriaxone 1 Gm Vial) 1 gm IVPUSH Q24H [facility] Last Admin: 06/17/21 12:39 Dose: 1 gm Documented by: Admin: 06/16/21 13:15 Dose: 1 gm Documented by: FREDY Enoxaparin Sodium (Enoxaparin 40 Mg/0.4 Ml Syringe) 40 mg SUBCUT Q24H [facility] Last Admin: 06/17/21 14:33 Dose: 40 mg Documented by: Admin: 06/16/21 16:14 Dose: 40 mg Documented by: ANATOLY Fluticasone Propionate (Fluticasone Propionate Nasal [place] 16 Gm Bottle) 0 gm NASBOTH DAILY PRN PRN Reason: Congestion Furosemide (Furosemide 20 Mg Tab) 20 mg PO DAILY PRN PRN Reason: Edema Guaifenesin (Guaifenesin 100 Mg/5 Ml Soln 5 Ml Ud Cup) 200 mg PO Q6H PRN PRN Reason: Cough Azithromycin 500 mg/ Sodium (Chloride) 250 mls @ 250 mls/hr IV Q24H [facility] Last Admin: 06/17/21 20:00 Dose: 250 mls/hr Documented by: Admin: 06/16/21 21:21 Dose: 250 mls/hr Documented by: NIMISHA Latanoprost (Latanoprost 0.005% Ophth Soln 2.5 Ml Bottle) 0 ml EYEBOTH BEDTIME [facility] Last Admin: 06/17/21 22:57 Dose: 1 drop Documented by: BERNY Losartan Potassium (Losartan 100 Mg Tab) 100 mg PO DAILY [facility] Last Admin: 06/17/21 08:56 Dose: 100 mg Documented by: ANATOLY Methimazole (Methimazole 5 Mg Tab) 5 mg PO DAILY [facility] Last Admin: 06/17/21 08:59 Dose: 5 mg Documented by: ANATOLY Metoprolol Succinate (Metoprolol Succinate 50 Mg Tab.Er) 50 mg PO DAILY [facility] Last Admin: 06/17/21 08:58 Dose: 50 mg Documented by: ANATOLY Mometasone Furoate/Formoterol Fumar (Formoterol/Mometasone 200-5 Mcg 8.8 Gm Inhaler) 2 puff IH BID [facility] Last Admin: 06/17/21 22:51 Dose: 2 puff Documented by: BERNY Multivitamins/Minerals/Vitamin C (Multivitamin Tab) 1 tab PO DAILY [facility] Last Admin: 06/17/21 10:16 Dose: 1 tab Documented by: ANATOLY Ondansetron HCl (Ondansetron 4 Mg/2 Ml Sdv) 4 mg IVPUSH Q4H PRN PRN Reason: Nausea/Vomiting Last Admin: 06/17/21 04:48 Dose: 4 mg Documented by: NIMISHA Pantoprazole Sodium (Pantoprazole 40 Mg Tab.Cr) 40 mg PO DAILY@0600 [facility] Last Admin: 06/18/21 06:27 Dose: 40 mg Documented by: BERNY Paroxetine HCl (Paroxetine 20 Mg Tab) 40 mg PO DAILY [facility] Polyethylene Glycol (Polyethylene Glycol 3350 Powder 17 Gm Packet) 17 gm PO DAILY PRN PRN Reason: Constipation Prednisone (Prednisone 20 Mg Tab) 20 mg PO WITHBREAKFAST [facility] Last Admin: 06/17/21 11:27 Dose: 20 mg Documented by: ANATOLY Rosuvastatin Calcium (Rosuvastatin 10 Mg Tab) 10 mg PO DAILY [facility] Last Admin: 06/17/21 09:00 Dose: 10 mg Documented by: ANATOLY Senna/Docusate Sodium (Docusate Sodium/Sennosides 50-8.6 Mg Tab) 1 tab PO BID PRN PRN Reason: Constipation Sodium Chloride (Sodium Chloride 0.9% 10 Ml Syringe) 10 ml FLUSH ASDIRECTED PRN PRN Reason: Keep Vein Open Last Admin: 06/17/21 21:46 Dose: 10 ml Documented by: Admin: 06/17/21 20:04 Dose: 10 ml Documented by: Admin: 06/17/21 12:40 Dose: 10 ml Documented by: Admin: 06/17/21 04:47 Dose: 10 ml Documented by: Admin: 06/16/21 21:20 Dose: 10 ml Documented by: NIMISHA Trazodone HCl (Trazodone 50 Mg Tab) 150 mg PO BEDTIME [facility] Last Admin: 06/17/21 22:55 Dose: 150 mg Documented by: BERNY Labs: Laboratory Tests 06/16/21 06/16/21 06/16/21 Range/Units 11:34 11:34 11:34 WBC 6.7 (3.0-10.3) x10-3/uL RBC 3.97 (3.60-5.20) x10(6)uL Hgb 12.0 (11.4-15.5) g/dL Hct 36.9 (34.2-48.2) % MCV 92.9 (76.7-100.5) fL MCH 30.2 (23.9-33.9) pg MCHC 32.6 (31.9-34.8) g/dL RDW 14.0 (12.3-16.5) % Plt Count 311 (151-488) x10(3)uL MPV 5.7 L (7.1-12.4) fL Neut % (Auto) 58.3 (30.8-76.2) % Lymph % (Auto) 32.6 (18.4-52.1) % [place] % (Auto) 6.9 (4.4-15.7) % Eos % (Auto) 1.6 (0.6-8.1) % Baso % (Auto) 0.6 (0.2-1.5) % Neut # (Auto) 3.9 (1.5-6.3) x10-3/uL Lymph # (Auto) 2.2 (1.0-4.4) x10-3/uL [place] # (Auto) 0.5 (0.3-1.0) x10-3/uL Eos # (Auto) 0.1 (0.0-0.8) x10-3/uL Baso # (Auto) 0.0 (0.0-0.1) x10-3/uL Sodium 140 (135-145) mmol/L Potassium 3.9 (3.5-5.3) mmol/L Chloride 102 D (100-110) mmol/L Carbon Dioxide 31 (21-32) mmol/L BUN 11 (7-18) mg/dL Creatinine 0.7 (0.55-1.02) mg/dL Est Cr Clr Drug Dosing TNP Estimated GFR (MDRD) > 60 (>60) BUN/Creatinine Ratio 15.7 (9-20) Glucose 219 H D (80-116) mg/dL POC Glucose (80-116) mg/dL Calcium 9.0 (8.6-10.2) mg/dL Total Bilirubin 0.3 (0.1-1.3) mg/dL AST 9 (5-25) IU/L ALT 23 (12-36) U/L Alkaline Phosphatase 71 (56-112) IU/L Troponin I < 4.0 L (4.0-60.3) pg/mL Total Protein 7.3 (6.0-8.0) g/dL Albumin 3.5 (3.2-4.6) g/dL Globulin 3.8 g/dL Albumin/Globulin Ratio 0.9 TSH, Ultra Sensitive (0.36-3.74) IU/mL Urine Color (YELLOW) Urine Appearance (CLEAR) Urine pH (5.0-6.5) Ur Specific Busy (1.010-1.025) Urine Protein (NEGATIVE) mg/dL Urine Glucose (UA) (NORMAL) mg/dL Urine Ketones (NEGATIVE) mg/dL Urine Occult Blood (NEGATIVE) Urine Nitrite (NEGATIVE) Urine Bilirubin (NEGATIVE) Urine Urobilinogen (NEGATIVE) mg/dL Ur Leukocyte Esterase (NEGATIVE) Urine RBC (0-5) Urine WBC (0-5) Ur Squamous Epith Cells (NS,R,O) Urine Bacteria (NS) SARS-CoV-2 RNA (MICHAEL) (NEGATIVE) 06/16/21 06/16/21 06/16/21 Range/Units 11:38 12:25 17:53 WBC (3.0-10.3) x10-3/uL RBC (3.60-5.20) x10(6)uL Hgb (11.4-15.5) g/dL Hct (34.2-48.2) % MCV (76.7-100.5) fL MCH (23.9-33.9) pg MCHC (31.9-34.8) g/dL RDW (12.3-16.5) % Plt Count (151-488) x10(3)uL MPV (7.1-12.4) fL Neut % (Auto) (30.8-76.2) % Lymph % (Auto) (18.4-52.1) % [place] % (Auto) (4.4-15.7) % Eos % (Auto) (0.6-8.1) % Baso % (Auto) (0.2-1.5) % Neut # (Auto) (1.5-6.3) x10-3/uL Lymph # (Auto) (1.0-4.4) x10-3/uL [place] # (Auto) (0.3-1.0) x10-3/uL Eos # (Auto) (0.0-0.8) x10-3/uL Baso # (Auto) (0.0-0.1) x10-3/uL Sodium (135-145) mmol/L Potassium (3.5-5.3) mmol/L Chloride (100-110) mmol/L Carbon Dioxide (21-32) mmol/L BUN (7-18) mg/dL Creatinine (0.55-1.02) mg/dL Est Cr Clr Drug Dosing Estimated GFR (MDRD) (>60) BUN/Creatinine Ratio (9-20) Glucose (80-116) mg/dL POC Glucose 131 H (80-116) mg/dL Calcium (8.6-10.2) mg/dL Total Bilirubin (0.1-1.3) mg/dL AST (5-25) IU/L ALT (12-36) U/L Alkaline Phosphatase (56-112) IU/L Troponin I (4.0-60.3) pg/mL Total Protein (6.0-8.0) g/dL Albumin (3.2-4.6) g/dL Globulin g/dL Albumin/Globulin Ratio TSH, Ultra Sensitive (0.36-3.74) IU/mL Urine Color Yellow (YELLOW) Urine Appearance Cloudy (CLEAR) Urine pH 6.0 (5.0-6.5) Ur Specific Busy 1.020 (1.010-1.025) Urine Protein Negative (NEGATIVE) mg/dL Urine Glucose (UA) >1000 H (NORMAL) mg/dL Urine Ketones Negative (NEGATIVE) mg/dL Urine Occult Blood Moderate H (NEGATIVE) Urine Nitrite Negative (NEGATIVE) Urine Bilirubin Negative (NEGATIVE) Urine Urobilinogen 1 H (NEGATIVE) mg/dL Ur Leukocyte Esterase Large H (NEGATIVE) Urine RBC 0-5 (0-5) Urine WBC 40-50 H (0-5) Ur Squamous Epith Cells Few H (NS,R,O) Urine Bacteria Many H (NS) SARS-CoV-2 RNA (MICHAEL) Negative (NEGATIVE) 06/17/21 06/17/21 06/17/21 Range/Units 06:02 06:02 06:02 WBC 6.3 (3.0-10.3) x10-3/uL RBC 3.98 (3.60-5.20) x10(6)uL Hgb 11.9 (11.4-15.5) g/dL Hct 37.0 (34.2-48.2) % MCV 92.8 (76.7-100.5) fL MCH 29.9 (23.9-33.9) pg MCHC 32.3 (31.9-34.8) g/dL RDW 14.0 (12.3-16.5) % Plt Count 324 (151-488) x10(3)uL MPV 5.7 L (7.1-12.4) fL Neut % (Auto) 55.5 (30.8-76.2) % Lymph % (Auto) 36.4 (18.4-52.1) % [place] % (Auto) 6.0 (4.4-15.7) % Eos % (Auto) 1.8 (0.6-8.1) % Baso % (Auto) 0.3 (0.2-1.5) % Neut # (Auto) 3.5 (1.5-6.3) x10-3/uL Lymph # (Auto) 2.3 (1.0-4.4) x10-3/uL [place] # (Auto) 0.4 (0.3-1.0) x10-3/uL Eos # (Auto) 0.1 (0.0-0.8) x10-3/uL Baso # (Auto) 0.0 (0.0-0.1) x10-3/uL Sodium 142 (135-145) mmol/L Potassium 3.9 (3.5-5.3) mmol/L Chloride 103 (100-110) mmol/L Carbon Dioxide 33 H (21-32) mmol/L BUN 8 (7-18) mg/dL Creatinine 0.5 L (0.55-1.02) mg/dL Est Cr Clr Drug Dosing 69.83 Estimated GFR (MDRD) > 60 (>60) BUN/Creatinine Ratio 16.0 (9-20) Glucose 167 H (80-116) mg/dL POC Glucose (80-116) mg/dL Calcium 8.8 (8.6-10.2) mg/dL Total Bilirubin 0.4 (0.1-1.3) mg/dL AST 14 D (5-25) IU/L ALT 25 (12-36) U/L Alkaline Phosphatase 67 (56-112) IU/L Troponin I (4.0-60.3) pg/mL Total Protein 7.1 (6.0-8.0) g/dL Albumin 3.4 (3.2-4.6) g/dL Globulin 3.7 g/dL Albumin/Globulin Ratio 0.9 TSH, Ultra Sensitive 0.56 (0.36-3.74) IU/mL Urine Color (YELLOW) Urine Appearance (CLEAR) Urine pH (5.0-6.5) Ur Specific Busy (1.010-1.025) Urine Protein (NEGATIVE) mg/dL Urine Glucose (UA) (NORMAL) mg/dL Urine Ketones (NEGATIVE) mg/dL Urine Occult Blood (NEGATIVE) Urine Nitrite (NEGATIVE) Urine Bilirubin (NEGATIVE) Urine Urobilinogen (NEGATIVE) mg/dL Ur Leukocyte Esterase (NEGATIVE) Urine RBC (0-5) Urine WBC (0-5) Ur Squamous Epith Cells (NS,R,O) Urine Bacteria (NS) SARS-CoV-2 RNA (MICHAEL) (NEGATIVE) Meds: Medications Generic Name Dose Route Start Last Admin Trade Name Freq PRN Reason Stop Dose Admin Acetaminophen 1,300 mg 06/16/21 14:00 06/18/21 06:26 Acetaminophen 650 Mg Tab.Er PO 1,300 mg Q8H PADMINI Administration Albuterol 0 gm 06/16/21 13:56 Albuterol 8 Gm Inhaler INH Q4H PRN Wheezing Albuterol/Ipratropium 3 ml 06/16/21 16:00 06/18/21 07:37 Albuterol/Ipratropium 3.0-0.5 Mg/3 Ml Neb Soln INH 3 ml QIDRT PADMINI Administration Alprazolam 1.5 mg 06/16/21 17:00 06/18/21 06:33 Alprazolam 0.5 Mg Tab PO 1.5 mg TID@0600,1200,1700 PADMINI Administration Artificial Tears 0 ml 06/16/21 13:56 Hypromellose 0.3% Ophth Soln 15 Ml Bottle EYEBOTH DAILY PRN Dry Eyes Benzonatate 100 mg 06/16/21 14:00 06/17/21 22:54 Benzonatate 100 Mg Cap PO 100 mg TID PADMINI Administration Budesonide 0.5 mg 06/16/21 21:00 06/17/21 22:54 Budesonide 0.5 Mg/2 Ml Neb Susp INH 0.5 mg BID PADMINI Administration Calcium Carbonate/Glycine 500 mg 06/17/21 10:00 06/17/21 22:53 Calcium Carbonate 500 Mg Tablet PO 500 mg BID PADMINI Administration Ceftriaxone Sodium 1 gm 06/16/21 12:45 06/17/21 12:39 Ceftriaxone 1 Gm Vial IVPUSH 1 gm Q24H PADMINI Administration Enoxaparin Sodium 40 mg 06/16/21 14:30 06/17/21 14:33 Enoxaparin 40 Mg/0.4 Ml Syringe SUBCUT 40 mg Q24H PADMINI Administration Fluticasone Propionate 0 gm 06/16/21 13:56 Fluticasone Propionate Nasal [place] 16 Gm Bottle NASBOTH DAILY PRN Congestion Furosemide 20 mg 06/16/21 13:56 Furosemide 20 Mg Tab PO DAILY PRN Edema Guaifenesin 200 mg 06/16/21 13:56 Guaifenesin 100 Mg/5 Ml Soln 5 Ml Ud Cup PO Q6H PRN Cough Azithromycin 500 mg/ Sodium 250 mls @ 250 mls/hr 06/16/21 20:00 06/17/21 20:00 Chloride IV 250 mls/hr Q24H PADMINI Administration Latanoprost 0 ml 06/17/21 21:00 06/17/21 22:57 Latanoprost 0.005% Ophth Soln 2.5 Ml Bottle EYEBOTH 1 drop BEDTIME PADMINI Administration Losartan Potassium 100 mg 06/17/21 09:00 06/17/21 08:56 Losartan 100 Mg Tab PO 100 mg DAILY PADMINI Administration Methimazole 5 mg 06/17/21 09:00 06/17/21 08:59 Methimazole 5 Mg Tab PO 5 mg DAILY PADMINI Administration Metoprolol Succinate 50 mg 06/17/21 09:00 06/17/21 08:58 Metoprolol Succinate 50 Mg Tab.Er PO 50 mg DAILY PADMINI Administration Mometasone Furoate/Formoterol Fumar 2 puff 06/17/21 21:00 06/17/21 22:51 Formoterol/Mometasone 200-5 Mcg 8.8 Gm Inhaler IH 2 puff BID PADMINI Administration Multivitamins/Minerals/Vitamin C 1 tab 06/17/21 10:00 06/17/21 10:16 Multivitamin Tab PO 1 tab DAILY PADMINI Administration Ondansetron HCl 4 mg 06/16/21 13:42 06/17/21 04:48 Ondansetron 4 Mg/2 Ml Sdv IVPUSH 4 mg Q4H PRN Administration Nausea/Vomiting Pantoprazole Sodium 40 mg 06/18/21 06:00 06/18/21 06:27 Pantoprazole 40 Mg Tab.Cr PO 40 mg DAILY@0600 PADMINI Administration Paroxetine HCl 40 mg 06/18/21 09:00 Paroxetine 20 Mg Tab PO DAILY PADMINI Polyethylene Glycol 17 gm 06/16/21 13:56 Polyethylene Glycol 3350 Powder 17 Gm Packet PO DAILY PRN Constipation Prednisone 20 mg 06/17/21 10:30 06/17/21 11:27 Prednisone 20 Mg Tab PO 20 mg WITHBREAKFAST PADMINI Administration Rosuvastatin Calcium 10 mg 06/17/21 09:00 06/17/21 09:00 Rosuvastatin 10 Mg Tab PO 10 mg DAILY PADMINI Administration Senna/Docusate Sodium 1 tab 06/16/21 13:56 Docusate Sodium/Sennosides 50-8.6 Mg Tab PO BID PRN Constipation Sodium Chloride 10 ml 06/16/21 11:10 06/17/21 21:46 Sodium Chloride 0.9% 10 Ml Syringe FLUSH 10 ml ASDIRECTED PRN Administration Keep Vein Open Trazodone HCl 150 mg 06/17/21 21:00 06/17/21 22:55 Trazodone 50 Mg Tab PO 150 mg BEDTIME PADMINI Administration Discontinued Medications Generic Name Dose Route Start Last Admin Trade Name Freq PRN Reason Stop Dose Admin (Fluticasone/ 1 puff 06/16/21 21:00 06/17/21 09:01 Salmeterol [Advair INH 1 puff 250-50] *Ptom BID PADMINI Administration (Omeprazole [ 20 mg 06/17/21 09:00 06/17/21 09:04 Omeprazole] 20 Mg PO 20 mg Capsule.) *Ptom DAILY PADMINI Administration (Paroxetine [Paxil] 40 mg 06/17/21 09:00 06/17/21 09:01 40 Mg Tablet) *Ptom PO 40 mg DAILY PADMINI Administration Trazodone HCl 150 mg 06/16/21 21:00 06/16/21 21:37 Trazodone 100 Mg Tab *Ptom PO 150 mg BEDTIME PADMINI Administration Departure - Departure Time of Disposition: 12:00 Disposition: Refer to Observation Condition: Good Clinical Impression: Weakness, Encephalopathy, UTI (urinary tract infection) - Discharge Information Sepsis Event Note (ED) - Evaluation Sepsis Screening Result: No Definite Risk - My Orders Last 24 Hours: My Active Orders 06/17/21 09:00 Losartan [Cozaar] 100 mg PO DAILY Metoprolol Succinate [Toprol XL] 50 mg PO DAILY Rosuvastatin [Crestor] 10 mg PO DAILY methIMAzole 5 mg PO DAILY 06/17/21 10:00 Calcium Carbonate [Oyster Shell Calcium] 500 mg PO BID Multivitamins [Tab-A-Melina] 1 tab PO DAILY 06/17/21 21:00 Latanoprost [Xalatan 0.005% Ophth Soln] 0 ml EYEBOTH BEDTIME - Assessment/Plan Last 24 Hours: My Active Orders 06/17/21 09:00 Losartan [Cozaar] 100 mg PO DAILY Metoprolol Succinate [Toprol XL] 50 mg PO DAILY Rosuvastatin [Crestor] 10 mg PO DAILY methIMAzole 5 mg PO DAILY 06/17/21 10:00 Calcium Carbonate [Oyster Shell Calcium] 500 mg PO BID Multivitamins [Tab-A-Melina] 1 tab PO DAILY 06/17/21 21:00 Latanoprost [Xalatan 0.005% Ophth Soln] 0 ml EYEBOTH BEDTIME
[2021-06-16] MEDS: cefTRIAXone 1 GM Vial IVPUSH SCH (13:15)
[2021-06-16] MEDS ORDERED: Ondansetron 4 MG/2 ML SDV IVPUSH PRN (13:42)
[2021-06-16] MEDS ORDERED: Hypromellose 0.3% Ophth Soln 15 ML Bottle EYEBOTH PRN (13:56)
[2021-06-16] MEDS ORDERED: Fluticasone Propionate Nasal Spray 16 GM Bottle NASBOTH PRN (13:56)
[2021-06-16] MEDS ORDERED: Polyethylene Glycol 3350 Powder 17 GM Packet PO PRN (13:56)
[2021-06-16] MEDS ORDERED: guaiFENesin 100 MG/5 ML Soln 5 ML UD Cup PO PRN (13:56)
[2021-06-16] MEDS ORDERED: Furosemide 20 MG Tab PO PRN (13:56)
[2021-06-16] MEDS ORDERED: Albuterol 8 GM Inhaler INH PRN (13:56)
[2021-06-16] MEDS ORDERED: ALPRAZolam 0.5 MG Tab PO SCH (14:00)
[2021-06-16] MEDS: Acetaminophen 650 MG Tab.ER PO SCH ×2 (16:07→21:41)
[2021-06-16] MEDS: Benzonatate 100 MG Cap PO SCH ×2 (16:11→21:37)
[2021-06-16] MEDS: Enoxaparin 40 MG/0.4 ML Syringe SUBCUT SCH (16:14)
[2021-06-16] MEDS: Albuterol/Ipratropium 3.0-0.5 MG/3 ML Neb Soln INH SCH ×2 (16:17→21:39)
[2021-06-16] MEDS: ALPRAZolam 0.5 MG Tab PO SCH (16:29)
--- NOTE | 2021-06-16 18:10 | PCM.HP.2 ---
H&P History of Present Illness - General Date of Service: 06/16/21 Admit Problem/Dx: Admission Diagnosis/Problem Admission Diagnosis/Problem Encephalopathy due to infection Source of Information: Family, Provider History Limitations: Reports: Altered Mental Status - History of Present Illness Initial Comments - Free Text/Narative: Asha is a 76-year-old female was brought in by family because of increasing confusion, weakness,dizziness/vertigo. Apparently she's been sitting in the recliner for a month without much movement. She is confused and not able to give much history.Her brought her in. She has a history of COPD, multinodular goiter,Anxiety, Depression. Head Pain Score (Numeric/FACES): 4 - Related Data Allergies/Adverse Reactions: Allergies Allergy/AdvReac Type Severity Reaction Status Date / Time ibuprofen AdvReac Mild Nausea and Verified 07/22/18 15:12 Vomiting sulfamethoxazole AdvReac Mild Nausea and Verified 07/22/18 15:12 [From Bactrim] Vomiting trimethoprim [From Bactrim] AdvReac Mild Nausea and Verified 07/22/18 15:12 Vomiting Home Medications: Home Meds Albuterol [Ventolin HFA] 2 puff INH Q4H PRN 09/24/13 [History] Fluticasone Propionate [Flonase] 2 sprays NASBOTH DAILY PRN 09/24/13 [History] PARoxetine [Paxil] 40 mg PO DAILY 09/24/13 [History] Fluticasone/Salmeterol [Advair 250-50] 1 puff INH BID 07/14/14 [History] Losartan [Cozaar] 100 mg PO DAILY 12/19/14 [History] Acetaminophen [Tylenol Arthritis] 1,300 mg PO Q8H 09/04/16 [History] Albuterol/Ipratropium [DuoNeb 3.0-0.5 MG/3 ML] 3 ml IH QID 09/04/16 [History] Bimatoprost [Lumigan 0.01% Ophth Soln] 1 drop EYEBOTH BEDTIME 09/04/16 [History] Metoprolol Succinate [Toprol XL] 50 mg PO DAILY 09/04/16 [History] Docusate Sodium/Sennosides [Senokot-S] 1 tab PO BID PRN 09/23/16 [History] Hypromellose [GenTeal Mild to Moderate Ophth Soln] 1 drop EYEBOTH DAILY PRN 09/23/16 [History] Benzonatate [Tessalon Perles] 100 mg PO TID 03/25/17 [History] Calcium Carbonate/Vitamin D3 [Calcium 600-Vit D3 400 Tablet] 1 tab PO BID 03/25/17 [History] Multivitamin [Multi-Vitamin Daily] 1 tab PO DAILY 03/25/17 [History] Polyethylene Glycol 3350 [MiraLAX] 17 gram PO DAILY PRN 03/25/17 [History] guaiFENesin [Robitussin] 200 mg PO Q6H PRN 12/20/17 [History] ALPRAZolam [Alprazolam] 1.5 mg PO TID 06/16/21 [History] Budesonide [Pulmicort] 0.5 mg IH BID 06/16/21 [History] Furosemide [Lasix] 20 mg PO DAILY PRN 06/16/21 [History] Omeprazole 20 mg PO DAILY 06/16/21 [History] Rosuvastatin [Crestor] 10 mg PO DAILY 06/16/21 [History] methIMAzole [Methimazole] 5 mg PO DAILY 06/16/21 [History] traZODone 150 mg PO BEDTIME 06/16/21 [History] Past Medical History HEENT History: Reports: Cataract, Glaucoma, Impaired Vision Cardiovascular History: Reports: Hypertension Respiratory History: Reports: Asthma, COPD, Pneumonia, Recurrent Other Respiratory History: PULMONARY EMPHYSEMA Gastrointestinal History: Reports: GERD Genitourinary History: Reports: Urinary Incontinence CRITICAL CARE NURSE SPECIALIST History: Reports: Musculoskeletal History: Reports: Arthritis, Osteoarthritis, Osteoporosis Neurological History: Reports: Headaches, Chronic, Other (See Below) Other Neuro History: COMMUNICATION HYDROCEPHALUS Psychiatric History: Reports: Anxiety, Depression, Panic Attack Endocrine/Metabolic History: Reports: Obesity/BMI 30+ Other Hematologic History: blood transfusion as a baby x1 Immunologic History: Reports: None Oncologic (Cancer) History: Reports: None Dermatologic History: Reports: None - Past Surgical History Head Surgeries/Procedures: Reports: None HEENT Surgical History: Reports: Cataract Surgery, Tonsillectomy Cardiovascular Surgical History: Reports: None Respiratory Surgical History: Reports: None GI Surgical History: Reports: Appendectomy, Cholecystectomy, Colonoscopy Female Surgical History: Reports: Hysterectomy, Tubal Ligation Endocrine Surgical History: Reports: None Neurological Surgical History: Reports: None Oncologic Surgical History: Reports: None Dermatological Surgical History: Reports: None Social & Family History - Family History Family Medical History: No Pertinent Family History - Tobacco Use Tobacco Use Status *Q: Former Tobacco User Used Tobacco, but Quit: Yes Month/Year Tobacco Last Used: 20 - Caffeine Use Caffeine Use: Reports: Coffee - Recreational Drug Use Recreational Drug Use: No H&P Review of Systems - Review of Systems: Review Of Systems: Comprehensive ROS is negative, except as noted in HPI. Exam - Exam Exam: See Below - Vital Signs Vital Signs: Last Vital Signs Temp 97.8 F 06/16/21 15:20 Pulse 83 06/16/21 15:20 Resp 15 06/16/21 15:20 BP 163/84 H 06/16/21 15:20 Pulse Ox 95 06/16/21 15:20 Weight: 87.231 kg - Exam Quality Assessment: Supplemental Oxygen General: Alert, Cooperative. No: Oriented HEENT: PERRLA Neck: Supple Lungs: Clear to Auscultation Cardiovascular: Regular Rate GI/Abdominal Exam: Normal Bowel Sounds, Soft (Female) Exam: Deferred Rectal (Female) Exam: Deferred Extremities: Normal Inspection Skin: Warm Neurological: Cranial Nerves Intact Neuro Extensive - Mental Status: Alert Psychiatric: Alert, Normal Affect - Patient Data Lab Results Last 24 hrs: Laboratory Results - last 24 hr 06/16/21 06/16/21 06/16/21 Range/Units 11:34 11:34 11:34 WBC 6.7 (3.0-10.3) x10-3/uL RBC 3.97 (3.60-5.20) x10(6)uL Hgb 12.0 (11.4-15.5) g/dL Hct 36.9 (34.2-48.2) % MCV 92.9 (76.7-100.5) fL MCH 30.2 (23.9-33.9) pg MCHC 32.6 (31.9-34.8) g/dL RDW 14.0 (12.3-16.5) % Plt Count 311 (151-488) x10(3)uL MPV 5.7 L (7.1-12.4) fL Neut % (Auto) 58.3 (30.8-76.2) % Lymph % (Auto) 32.6 (18.4-52.1) % Harper % (Auto) 6.9 (4.4-15.7) % Eos % (Auto) 1.6 (0.6-8.1) % Baso % (Auto) 0.6 (0.2-1.5) % Neut # (Auto) 3.9 (1.5-6.3) x10-3/uL Lymph # (Auto) 2.2 (1.0-4.4) x10-3/uL Harper # (Auto) 0.5 (0.3-1.0) x10-3/uL Eos # (Auto) 0.1 (0.0-0.8) x10-3/uL Baso # (Auto) 0.0 (0.0-0.1) x10-3/uL Sodium 140 (135-145) mmol/L Potassium 3.9 (3.5-5.3) mmol/L Chloride 102 D (100-110) mmol/L Carbon Dioxide 31 (21-32) mmol/L BUN 11 (7-18) mg/dL Creatinine 0.7 (0.55-1.02) mg/dL Est Cr Clr Drug Dosing TNP Estimated GFR (MDRD) > 60 (>60) BUN/Creatinine Ratio 15.7 (9-20) Glucose 219 H D (80-116) mg/dL Calcium 9.0 (8.6-10.2) mg/dL Total Bilirubin 0.3 (0.1-1.3) mg/dL AST 9 (5-25) IU/L ALT 23 (12-36) U/L Alkaline Phosphatase 71 (56-112) IU/L Troponin I < 4.0 L (4.0-60.3) pg/mL Total Protein 7.3 (6.0-8.0) g/dL Albumin 3.5 (3.2-4.6) g/dL Globulin 3.8 g/dL Albumin/Globulin Ratio 0.9 Urine Color (YELLOW) Urine Appearance (CLEAR) Urine pH (5.0-6.5) Ur Specific [place] (1.010-1.025) Urine Protein (NEGATIVE) mg/dL Urine Glucose (UA) (NORMAL) mg/dL Urine Ketones (NEGATIVE) mg/dL Urine Occult Blood (NEGATIVE) Urine Nitrite (NEGATIVE) Urine Bilirubin (NEGATIVE) Urine Urobilinogen (NEGATIVE) mg/dL Ur Leukocyte Esterase (NEGATIVE) Urine RBC (0-5) Urine WBC (0-5) Ur Squamous Epith Cells (NS,R,O) Urine Bacteria (NS) SARS-CoV-2 RNA (MICHAEL) (NEGATIVE) 06/16/21 06/16/21 Range/Units 11:38 12:25 WBC (3.0-10.3) x10-3/uL RBC (3.60-5.20) x10(6)uL Hgb (11.4-15.5) g/dL Hct (34.2-48.2) % MCV (76.7-100.5) fL MCH (23.9-33.9) pg MCHC (31.9-34.8) g/dL RDW (12.3-16.5) % Plt Count (151-488) x10(3)uL MPV (7.1-12.4) fL Neut % (Auto) (30.8-76.2) % Lymph % (Auto) (18.4-52.1) % Harper % (Auto) (4.4-15.7) % Eos % (Auto) (0.6-8.1) % Baso % (Auto) (0.2-1.5) % Neut # (Auto) (1.5-6.3) x10-3/uL Lymph # (Auto) (1.0-4.4) x10-3/uL Harper # (Auto) (0.3-1.0) x10-3/uL Eos # (Auto) (0.0-0.8) x10-3/uL Baso # (Auto) (0.0-0.1) x10-3/uL Sodium (135-145) mmol/L Potassium (3.5-5.3) mmol/L Chloride (100-110) mmol/L Carbon Dioxide (21-32) mmol/L BUN (7-18) mg/dL Creatinine (0.55-1.02) mg/dL Est Cr Clr Drug Dosing Estimated GFR (MDRD) (>60) BUN/Creatinine Ratio (9-20) Glucose (80-116) mg/dL Calcium (8.6-10.2) mg/dL Total Bilirubin (0.1-1.3) mg/dL AST (5-25) IU/L ALT (12-36) U/L Alkaline Phosphatase (56-112) IU/L Troponin I (4.0-60.3) pg/mL Total Protein (6.0-8.0) g/dL Albumin (3.2-4.6) g/dL Globulin g/dL Albumin/Globulin Ratio Urine Color Yellow (YELLOW) Urine Appearance Cloudy (CLEAR) Urine pH 6.0 (5.0-6.5) Ur Specific [place] 1.020 (1.010-1.025) Urine Protein Negative (NEGATIVE) mg/dL Urine Glucose (UA) >1000 H (NORMAL) mg/dL Urine Ketones Negative (NEGATIVE) mg/dL Urine Occult Blood Moderate H (NEGATIVE) Urine Nitrite Negative (NEGATIVE) Urine Bilirubin Negative (NEGATIVE) Urine Urobilinogen 1 H (NEGATIVE) mg/dL Ur Leukocyte Esterase Large H (NEGATIVE) Urine RBC 0-5 (0-5) Urine WBC 40-50 H (0-5) Ur Squamous Epith Cells Few H (NS,R,O) Urine Bacteria Many H (NS) SARS-CoV-2 RNA (MICHAEL) Negative (NEGATIVE) Result Diagrams: 06/17/21 06:02 06/17/21 06:02 Sepsis Event Note - Evaluation Sepsis Screening Result: No Definite Risk - Focused Exam Vital Signs: Vital Signs Temp Pulse Resp BP Pulse Ox Pulse Ox 06/16/21 15:20 97.8 F 83 15 163/84 H 95 06/16/21 14:03 95 06/16/21 13:42 95 06/16/21 10:38 98.7 F 85 18 167/90 H 94 L - Problem List (1) Altered mental status SNOMED Code(s): 311783167 ICD Code: R41.82 - ALTERED MENTAL STATUS, UNSPECIFIED Status: Acute Current Visit: Yes Qualifiers: Altered mental status type: delirium Qualified Code(s): R41.0 - Disorientation, unspecified (2) Bacteriuria SNOMED Code(s): 94272619 ICD Code: R82.71 - BACTERIURIA Status: Acute Current Visit: Yes (3) Abnormal chest x-ray SNOMED Code(s): 792878267, 095301496 ICD Code: R93.89 - ABNORMAL FINDINGS ON DX IMAGING OF OTH BODY STRUCTURES Status: Acute Current Visit: Yes (4) MDD (major depressive disorder) SNOMED Code(s): 119333321 ICD Code: F32.9 - MAJOR DEPRESSIVE DISORDER, SINGLE EPISODE, UNSPECIFIED Status: Chronic Current Visit: Yes Qualifiers: Major depression recurrence: recurrent (5) Obesity SNOMED Code(s): 892475622, 065628890 ICD Code: E66.9 - OBESITY, UNSPECIFIED Status: Acute Current Visit: Yes (6) COPD (chronic obstructive pulmonary disease) SNOMED Code(s): 09934283 ICD Code: J44.9 - CHRONIC OBSTRUCTIVE PULMONARY DISEASE, UNSPECIFIED Status: Acute Current Visit: No Problem Details: SVN with Duonebs,Solumedrol IV and Abx-She has no WBC,or fever but will do for exacerbation of COPD Qualifiers: COPD type: unspecified COPD Qualified Code(s): J44.9 - Chronic obstructive pulmonary disease, unspecified (7) Weakness SNOMED Code(s): 19407343 ICD Code: R53.1 - WEAKNESS Status: Acute Current Visit: No (8) HTN, Benign essential hypertension SNOMED Code(s): 4453918 ICD Code: I10 - ESSENTIAL (PRIMARY) HYPERTENSION Status: Chronic Priority: Medium Current Visit: No Problem Details: cont. metoprolol, li sinopril. Problem List Initiated/Reviewed/Updated: Yes Orders Last 24hrs: Active Orders 24 hr Category Date Time Status Patient Status [ADT] Routine ADT 06/16/21 13:42 Active Oxygen Therapy [RC] PRN Care 06/16/21 13:42 Active RT Aerosol Therapy [RC] ASDIRECTED Care 06/16/21 14:03 Active RT Aerosol Therapy [RC] ASDIRECTED Care 06/16/21 14:03 Active RT Post Treatment Assessment [RC] Click to Edit Care 06/16/21 14:03 Active Up With Assistance [RC] ASDIRECTED Care 06/16/21 13:42 Active VTE/DVT Education [RC] Per Unit Routine Care 06/16/21 13:42 Active Vital Signs [RC] Q4H Care 06/16/21 13:42 Active Heart Healthy Diet [DIET] Diet 06/16/21 Dinner Ordered Chest 1V Frontal [CR] Stat Exams 06/16/21 11:10 Taken Head wo Cont [CT] Stat Exams 06/16/21 11:10 Taken BASIC METABOLIC PANEL,BMP [CHEM] AM Lab 06/17/21 05:11 Ordered CBC WITH AUTO DIFF [HEME] AM Lab 06/17/21 05:11 Ordered CULTURE URINE [RM] Stat Lab 06/16/21 11:38 Received ALPRAZolam [Xanax] Med 06/16/21 17:00 Active 1.5 mg PO TID@0600,1200,1700 Acetaminophen [Tylenol Arthritis Pain] Med 06/16/21 14:00 Active 1,300 mg PO Q8H Albuterol [Ventolin HFA] Med 06/16/21 13:56 Active 0 gm INH Q4H PRN Albuterol/Ipratropium [DuoNeb 3.0-0.5 MG/3 ML] Med 06/16/21 16:00 Active 3 ml INH QIDRT Benzonatate [Tessalon Perles] Med 06/16/21 14:00 Active 100 mg PO TID Bimatoprost [Lumigan 0.01% Ophth Soln] Med 06/16/21 21:00 Pending 1 drop EYEBOTH BEDTIME Budesonide [Pulmicort] Med 06/16/21 21:00 Active 0.5 mg INH BID Calcium Carbonate/Vitamin D3 [Calcium 600-Vit D3 400 Med 06/16/21 21:00 Ordered Tablet] 1 tab PO BID Docusate Sodium/Sennosides [Senna Plus] Med 06/16/21 13:56 Active 1 tab PO BID PRN Enoxaparin [Lovenox] Med 06/16/21 14:30 Active 40 mg SUBCUT Q24H Fluticasone Propionate [Flonase] Med 06/16/21 13:56 Active 0 gm NASBOTH DAILY PRN Fluticasone/Salmeterol [Advair 250-50] Med 06/16/21 21:00 Active 1 puff INH BID Furosemide [Lasix] Med 06/16/21 13:56 Active 20 mg PO DAILY PRN Hypromellose [GenTeal Mild to Moderate Ophth Soln] Med 06/16/21 13:56 Active 0 ml EYEBOTH DAILY PRN Losartan [Cozaar] Med 06/17/21 09:00 Active 100 mg PO DAILY Metoprolol Succinate [Toprol XL] Med 06/17/21 09:00 Active 50 mg PO DAILY Multivitamin [Multi-Vitamin Daily] Med 06/17/21 09:00 Ordered 1 tab PO DAILY Omeprazole [Omeprazole] Med 06/17/21 09:00 Active 20 mg PO DAILY Ondansetron [Zofran] Med 06/16/21 13:42 Active 4 mg IVPUSH Q4H PRN PARoxetine [Paxil] Med 06/17/21 09:00 Active 40 mg PO DAILY Rosuvastatin [Crestor] Med 06/17/21 09:00 Active 10 mg PO DAILY Sodium Chloride 0.9% [Saline Flush] Med 06/16/21 11:10 Active 10 ml FLUSH ASDIRECTED PRN cefTRIAXone [Rocephin] Med 06/16/21 12:45 Active 1 gm IVPUSH Q24H guaiFENesin [Robitussin] Med 06/16/21 13:56 Active 200 mg PO Q6H PRN methIMAzole Med 06/17/21 09:00 Active 5 mg PO DAILY polyethylene glycoL 3350 [MiraLAX] Med 06/16/21 13:56 Active 17 gm PO DAILY PRN traZODone Med 06/16/21 21:00 Active 150 mg PO BEDTIME Saline Lock Insert [OM.PC] Routine Oth 06/16/21 11:10 Ordered Resuscitation Status Routine Resus Stat 06/16/21 13:42 Ordered EKG 12 Lead [EK] Routine Ther 06/16/21 11:10 Ordered Medication Orders Acetaminophen (Acetaminophen 650 Mg Tab.Er) 1,300 mg PO Q8H [facility] Last Admin: 06/16/21 16:07 Dose: 1,300 mg Documented by: ANATOLY Albuterol (Albuterol 8 Gm Inhaler) 0 gm INH Q4H PRN PRN Reason: Wheezing Albuterol/Ipratropium (Albuterol/Ipratropium 3.0-0.5 Mg/3 Ml Neb Soln *Ptom) 3 ml INH QIDRT [facility] Last Admin: 06/16/21 16:17 Dose: 3 ml Documented by: ANATOLY Alprazolam (Alprazolam 0.5 Mg Tab) 1.5 mg PO TID@0600,1200,1700 [facility] Last Admin: 06/16/21 16:29 Dose: 1.5 mg Documented by: ANATOLY Artificial Tears (Hypromellose 0.3% Ophth Soln 15 Ml Bottle) 0 ml EYEBOTH DAILY PRN PRN Reason: Dry Eyes Benzonatate (Benzonatate 100 Mg Cap *Ptom) 100 mg PO TID [facility] Last Admin: 06/16/21 16:11 Dose: 100 mg Documented by: ANATOLY Budesonide (Budesonide 0.5 Mg/2 Ml Neb Susp *Ptom) 0.5 mg INH BID [facility] Ceftriaxone Sodium (Ceftriaxone 1 Gm Vial) 1 gm IVPUSH Q24H [facility] Last Admin: 06/16/21 13:15 Dose: 1 gm Documented by: FREDY Enoxaparin Sodium (Enoxaparin 40 Mg/0.4 Ml Syringe) 40 mg SUBCUT Q24H [facility] Last Admin: 06/16/21 16:14 Dose: 40 mg Documented by: ANATOLY Fluticasone Propionate (Fluticasone Propionate Nasal [place] 16 Gm Bottle) 0 gm NASBOTH DAILY PRN PRN Reason: Congestion Furosemide (Furosemide 20 Mg Tab) 20 mg PO DAILY PRN PRN Reason: Edema Guaifenesin (Guaifenesin 100 Mg/5 Ml Soln 5 Ml Ud Cup) 200 mg PO Q6H PRN PRN Reason: Cough Losartan Potassium (Losartan 100 Mg Tab *Ptom) 100 mg PO DAILY [facility] Methimazole (Methimazole 5 Mg Tab *Ptom) 5 mg PO DAILY [facility] Metoprolol Succinate (Metoprolol Succinate 50 Mg Tab.Er *Ptom) 50 mg PO DAILY [facility] Non-Formulary Medication (Bimatoprost [Lumigan 0.01% Ophth Soln]) 1 drop EYEBOTH BEDTIME PADMINI Non-Formulary Medication (Calcium Carbonate/Vitamin D3 [Calcium 600-Vit D3 400 Tablet]) 1 tab PO BID PADMINI (Fluticasone/Salmeterol [Advair 250-50] *Ptom 1 puff INH BID PADMINI Non-Formulary Medication (Multivitamin [Multi-Vitamin Daily]) 1 tab PO DAILY PADMINI (Omeprazole [ Omeprazole] 20 Mg Capsule.) *Ptom 20 mg PO DAILY PADMINI (Paroxetine [Paxil] (40 Mg Tablet) *Ptom) 40 mg PO DAILY [facility] Ondansetron HCl (Ondansetron 4 Mg/2 Ml Sdv) 4 mg IVPUSH Q4H PRN PRN Reason: Nausea/Vomiting Polyethylene Glycol (Polyethylene Glycol 3350 Powder 17 Gm Packet) 17 gm PO DAILY PRN PRN Reason: Constipation Rosuvastatin Calcium (Rosuvastatin 10 Mg Tab *Ptom) 10 mg PO DAILY [facility] Senna/Docusate Sodium (Docusate Sodium/Sennosides 50-8.6 Mg Tab) 1 tab PO BID PRN PRN Reason: Constipation Sodium Chloride (Sodium Chloride 0.9% 10 Ml Syringe) 10 ml FLUSH ASDIRECTED PRN PRN Reason: Keep Vein Open Trazodone HCl (Trazodone 100 Mg Tab *Ptom) 150 mg PO BEDTIME [facility] Assessment/Plan Comment:: The chest x-ray showed opacities in the left mid and lower lung zone which could be on the basis of infectious or inflammatory pneumonitis. I will treat her with Rocephin and azithromycin. Physical and occupational therapy. Urine culture is pending.
[2021-06-16] MEDS ORDERED: traZODone 100 MG Tab *PTOM PO SCH (21:00)
[2021-06-16] MEDS: Sodium Chloride 0.9% 10 ML Syringe FLUSH PRN (21:20)
[2021-06-16] MEDS: Azithromycin 500 MG in Sodium Chloride 0.9% 250 ML IV SCH (21:21)
[2021-06-16] MEDS: Budesonide 0.5 MG/2 ML Neb Susp INH SCH (21:40)
[2021-06-16] MEDS: FLUTICASONE INH SCH (21:40)
[2021-06-16] MEDS: SALMETEROL INH SCH (21:40)
[2021-06-17] MEDS: Sodium Chloride 0.9% 10 ML Syringe FLUSH PRN ×4 (04:47→21:46)
[2021-06-17] MEDS: Acetaminophen 650 MG Tab.ER PO SCH ×3 (06:00→22:55)
[2021-06-17] MEDS: ALPRAZolam 0.5 MG Tab PO SCH ×3 (06:02→17:10)
[2021-06-17] MEDS: Albuterol/Ipratropium 3.0-0.5 MG/3 ML Neb Soln INH SCH ×4 (06:03→22:52)
[2021-06-17] MEDS: Losartan 100 MG Tab PO SCH (08:56)
[2021-06-17] MEDS: Metoprolol Succinate 50 MG Tab.ER PO SCH (08:58)
[2021-06-17] MEDS: Methimazole 5 MG Tab PO SCH (08:59)
[2021-06-17] MEDS ORDERED: OMEPRAZOLE 20 MG PO SCH (09:00)
[2021-06-17] MEDS: Rosuvastatin 10 MG Tab PO SCH (09:00)
[2021-06-17] MEDS: Benzonatate 100 MG Cap PO SCH ×3 (09:00→22:54)
[2021-06-17] MEDS: FLUTICASONE INH SCH (09:01)
[2021-06-17] MEDS: SALMETEROL INH SCH (09:01)
[2021-06-17] MEDS: Budesonide 0.5 MG/2 ML Neb Susp INH SCH ×2 (09:06→22:54)
[2021-06-17] MEDS ORDERED: Acetaminophen 500 MG Tab PO PRN (09:46)
--- NOTE | 2021-06-17 09:52 | PCM.PN ---
- General Info Date of Service: 06/17/21 Subjective Update: Asha complains of headache, low back pain, pelvic pain.she also complains of numbness of her feet. These are chronic complaints. She denies fever or chills. She does not remember, if she has dysuria or frequency of urination. She is a difficult historian - Patient Data Vitals - Most Recent: Last Vital Signs Temp 97.9 F 06/17/21 07:40 Pulse 89 06/17/21 08:58 Resp 19 06/17/21 07:40 BP 125/72 06/17/21 08:58 Pulse Ox 94 L 06/17/21 07:40 Weight - Most Recent: 87.231 kg Lab Results Last 24 Hours: Laboratory Results - last 24 hr 06/16/21 06/16/21 06/16/21 Range/Units 11:34 11:34 11:34 WBC 6.7 (3.0-10.3) x10-3/uL RBC 3.97 (3.60-5.20) x10(6)uL Hgb 12.0 (11.4-15.5) g/dL Hct 36.9 (34.2-48.2) % MCV 92.9 (76.7-100.5) fL MCH 30.2 (23.9-33.9) pg MCHC 32.6 (31.9-34.8) g/dL RDW 14.0 (12.3-16.5) % Plt Count 311 (151-488) x10(3)uL MPV 5.7 L (7.1-12.4) fL Neut % (Auto) 58.3 (30.8-76.2) % Lymph % (Auto) 32.6 (18.4-52.1) % Emmet % (Auto) 6.9 (4.4-15.7) % Eos % (Auto) 1.6 (0.6-8.1) % Baso % (Auto) 0.6 (0.2-1.5) % Neut # (Auto) 3.9 (1.5-6.3) x10-3/uL Lymph # (Auto) 2.2 (1.0-4.4) x10-3/uL Emmet # (Auto) 0.5 (0.3-1.0) x10-3/uL Eos # (Auto) 0.1 (0.0-0.8) x10-3/uL Baso # (Auto) 0.0 (0.0-0.1) x10-3/uL Sodium 140 (135-145) mmol/L Potassium 3.9 (3.5-5.3) mmol/L Chloride 102 D (100-110) mmol/L Carbon Dioxide 31 (21-32) mmol/L BUN 11 (7-18) mg/dL Creatinine 0.7 (0.55-1.02) mg/dL Est Cr Clr Drug Dosing TNP Estimated GFR (MDRD) > 60 (>60) BUN/Creatinine Ratio 15.7 (9-20) Glucose 219 H D (80-116) mg/dL POC Glucose (80-116) mg/dL Calcium 9.0 (8.6-10.2) mg/dL Total Bilirubin 0.3 (0.1-1.3) mg/dL AST 9 (5-25) IU/L ALT 23 (12-36) U/L Alkaline Phosphatase 71 (56-112) IU/L Troponin I < 4.0 L (4.0-60.3) pg/mL Total Protein 7.3 (6.0-8.0) g/dL Albumin 3.5 (3.2-4.6) g/dL Globulin 3.8 g/dL Albumin/Globulin Ratio 0.9 TSH, Ultra Sensitive (0.36-3.74) IU/mL Urine Color (YELLOW) Urine Appearance (CLEAR) Urine pH (5.0-6.5) Ur Specific [place] (1.010-1.025) Urine Protein (NEGATIVE) mg/dL Urine Glucose (UA) (NORMAL) mg/dL Urine Ketones (NEGATIVE) mg/dL Urine Occult Blood (NEGATIVE) Urine Nitrite (NEGATIVE) Urine Bilirubin (NEGATIVE) Urine Urobilinogen (NEGATIVE) mg/dL Ur Leukocyte Esterase (NEGATIVE) Urine RBC (0-5) Urine WBC (0-5) Ur Squamous Epith Cells (NS,R,O) Urine Bacteria (NS) SARS-CoV-2 RNA (MICHAEL) (NEGATIVE) 06/16/21 06/16/21 06/16/21 Range/Units 11:38 12:25 17:53 WBC (3.0-10.3) x10-3/uL RBC (3.60-5.20) x10(6)uL Hgb (11.4-15.5) g/dL Hct (34.2-48.2) % MCV (76.7-100.5) fL MCH (23.9-33.9) pg MCHC (31.9-34.8) g/dL RDW (12.3-16.5) % Plt Count (151-488) x10(3)uL MPV (7.1-12.4) fL Neut % (Auto) (30.8-76.2) % Lymph % (Auto) (18.4-52.1) % Emmet % (Auto) (4.4-15.7) % Eos % (Auto) (0.6-8.1) % Baso % (Auto) (0.2-1.5) % Neut # (Auto) (1.5-6.3) x10-3/uL Lymph # (Auto) (1.0-4.4) x10-3/uL Emmet # (Auto) (0.3-1.0) x10-3/uL Eos # (Auto) (0.0-0.8) x10-3/uL Baso # (Auto) (0.0-0.1) x10-3/uL Sodium (135-145) mmol/L Potassium (3.5-5.3) mmol/L Chloride (100-110) mmol/L Carbon Dioxide (21-32) mmol/L BUN (7-18) mg/dL Creatinine (0.55-1.02) mg/dL Est Cr Clr Drug Dosing Estimated GFR (MDRD) (>60) BUN/Creatinine Ratio (9-20) Glucose (80-116) mg/dL POC Glucose 131 H (80-116) mg/dL Calcium (8.6-10.2) mg/dL Total Bilirubin (0.1-1.3) mg/dL AST (5-25) IU/L ALT (12-36) U/L Alkaline Phosphatase (56-112) IU/L Troponin I (4.0-60.3) pg/mL Total Protein (6.0-8.0) g/dL Albumin (3.2-4.6) g/dL Globulin g/dL Albumin/Globulin Ratio TSH, Ultra Sensitive (0.36-3.74) IU/mL Urine Color Yellow (YELLOW) Urine Appearance Cloudy (CLEAR) Urine pH 6.0 (5.0-6.5) Ur Specific [place] 1.020 (1.010-1.025) Urine Protein Negative (NEGATIVE) mg/dL Urine Glucose (UA) >1000 H (NORMAL) mg/dL Urine Ketones Negative (NEGATIVE) mg/dL Urine Occult Blood Moderate H (NEGATIVE) Urine Nitrite Negative (NEGATIVE) Urine Bilirubin Negative (NEGATIVE) Urine Urobilinogen 1 H (NEGATIVE) mg/dL Ur Leukocyte Esterase Large H (NEGATIVE) Urine RBC 0-5 (0-5) Urine WBC 40-50 H (0-5) Ur Squamous Epith Cells Few H (NS,R,O) Urine Bacteria Many H (NS) SARS-CoV-2 RNA (MICHAEL) Negative (NEGATIVE) 06/17/21 06/17/21 06/17/21 Range/Units 06:02 06:02 06:02 WBC 6.3 (3.0-10.3) x10-3/uL RBC 3.98 (3.60-5.20) x10(6)uL Hgb 11.9 (11.4-15.5) g/dL Hct 37.0 (34.2-48.2) % MCV 92.8 (76.7-100.5) fL MCH 29.9 (23.9-33.9) pg MCHC 32.3 (31.9-34.8) g/dL RDW 14.0 (12.3-16.5) % Plt Count 324 (151-488) x10(3)uL MPV 5.7 L (7.1-12.4) fL Neut % (Auto) 55.5 (30.8-76.2) % Lymph % (Auto) 36.4 (18.4-52.1) % Emmet % (Auto) 6.0 (4.4-15.7) % Eos % (Auto) 1.8 (0.6-8.1) % Baso % (Auto) 0.3 (0.2-1.5) % Neut # (Auto) 3.5 (1.5-6.3) x10-3/uL Lymph # (Auto) 2.3 (1.0-4.4) x10-3/uL Emmet # (Auto) 0.4 (0.3-1.0) x10-3/uL Eos # (Auto) 0.1 (0.0-0.8) x10-3/uL Baso # (Auto) 0.0 (0.0-0.1) x10-3/uL Sodium 142 (135-145) mmol/L Potassium 3.9 (3.5-5.3) mmol/L Chloride 103 (100-110) mmol/L Carbon Dioxide 33 H (21-32) mmol/L BUN 8 (7-18) mg/dL Creatinine 0.5 L (0.55-1.02) mg/dL Est Cr Clr Drug Dosing 69.83 Estimated GFR (MDRD) > 60 (>60) BUN/Creatinine Ratio 16.0 (9-20) Glucose 167 H (80-116) mg/dL POC Glucose (80-116) mg/dL Calcium 8.8 (8.6-10.2) mg/dL Total Bilirubin 0.4 (0.1-1.3) mg/dL AST 14 D (5-25) IU/L ALT 25 (12-36) U/L Alkaline Phosphatase 67 (56-112) IU/L Troponin I (4.0-60.3) pg/mL Total Protein 7.1 (6.0-8.0) g/dL Albumin 3.4 (3.2-4.6) g/dL Globulin 3.7 g/dL Albumin/Globulin Ratio 0.9 TSH, Ultra Sensitive 0.56 (0.36-3.74) IU/mL Urine Color (YELLOW) Urine Appearance (CLEAR) Urine pH (5.0-6.5) Ur Specific [place] (1.010-1.025) Urine Protein (NEGATIVE) mg/dL Urine Glucose (UA) (NORMAL) mg/dL Urine Ketones (NEGATIVE) mg/dL Urine Occult Blood (NEGATIVE) Urine Nitrite (NEGATIVE) Urine Bilirubin (NEGATIVE) Urine Urobilinogen (NEGATIVE) mg/dL Ur Leukocyte Esterase (NEGATIVE) Urine RBC (0-5) Urine WBC (0-5) Ur Squamous Epith Cells (NS,R,O) Urine Bacteria (NS) SARS-CoV-2 RNA (MICHAEL) (NEGATIVE) Andrew Results Last 24 Hours: Microbiology 06/16/21 11:38 Urine Culture - Preliminary Urine, Catheterized Gram Negative Rods Med Orders - Current: Current Medications Acetaminophen (Acetaminophen 650 Mg Tab.Er) 1,300 mg PO Q8H [facility] Last Admin: 06/17/21 06:00 Dose: 1,300 mg Documented by: Albuterol (Albuterol 8 Gm Inhaler) 0 gm INH Q4H PRN PRN Reason: Wheezing Albuterol/Ipratropium (Albuterol/Ipratropium 3.0-0.5 Mg/3 Ml Neb Soln) 3 ml INH QIDRT [facility] Last Admin: 06/17/21 06:03 Dose: 3 ml Documented by: Alprazolam (Alprazolam 0.5 Mg Tab) 1.5 mg PO TID@0600,1200,1700 [facility] Last Admin: 06/17/21 06:02 Dose: 1.5 mg Documented by: Artificial Tears (Hypromellose 0.3% Ophth Soln 15 Ml Bottle) 0 ml EYEBOTH DAILY PRN PRN Reason: Dry Eyes Benzonatate (Benzonatate 100 Mg Cap) 100 mg PO TID [facility] Last Admin: 06/17/21 09:00 Dose: 100 mg Documented by: Budesonide (Budesonide 0.5 Mg/2 Ml Neb Susp) 0.5 mg INH BID [facility] Last Admin: 06/17/21 09:06 Dose: 0.5 mg Documented by: Calcium Carbonate/Glycine (Calcium Carbonate 500 Mg Tablet) 500 mg PO BID [facility] Ceftriaxone Sodium (Ceftriaxone 1 Gm Vial) 1 gm IVPUSH Q24H [facility] Last Admin: 06/16/21 13:15 Dose: 1 gm Documented by: Enoxaparin Sodium (Enoxaparin 40 Mg/0.4 Ml Syringe) 40 mg SUBCUT Q24H [facility] Last Admin: 06/16/21 16:14 Dose: 40 mg Documented by: Fluticasone Propionate (Fluticasone Propionate Nasal [place] 16 Gm Bottle) 0 gm NASBOTH DAILY PRN PRN Reason: Congestion Furosemide (Furosemide 20 Mg Tab) 20 mg PO DAILY PRN PRN Reason: Edema Guaifenesin (Guaifenesin 100 Mg/5 Ml Soln 5 Ml Ud Cup) 200 mg PO Q6H PRN PRN Reason: Cough Azithromycin 500 mg/ Sodium (Chloride) 250 mls @ 250 mls/hr IV Q24H [facility] Last Admin: 06/16/21 21:21 Dose: 250 mls/hr Documented by: Latanoprost (Latanoprost 0.005% Ophth Soln 2.5 Ml Bottle) 0 ml EYEBOTH BEDTIME [facility] Losartan Potassium (Losartan 100 Mg Tab) 100 mg PO DAILY [facility] Last Admin: 06/17/21 08:56 Dose: 100 mg Documented by: Methimazole (Methimazole 5 Mg Tab) 5 mg PO DAILY [facility] Last Admin: 06/17/21 08:59 Dose: 5 mg Documented by: Metoprolol Succinate (Metoprolol Succinate 50 Mg Tab.Er) 50 mg PO DAILY [facility] Last Admin: 06/17/21 08:58 Dose: 50 mg Documented by: Mometasone Furoate/Formoterol Fumar (Formoterol/Mometasone 200-5 Mcg 8.8 Gm Inhaler) 2 puff IH BID [facility] Multivitamins/Minerals/Vitamin C (Multivitamin Tab) 1 tab PO DAILY [facility] Ondansetron HCl (Ondansetron 4 Mg/2 Ml Sdv) 4 mg IVPUSH Q4H PRN PRN Reason: Nausea/Vomiting Last Admin: 06/17/21 04:48 Dose: 4 mg Documented by: Pantoprazole Sodium (Pantoprazole 40 Mg Tab.Cr) 40 mg PO DAILY@0600 [facility] Paroxetine HCl (Paroxetine 20 Mg Tab) 40 mg PO DAILY [facility] Polyethylene Glycol (Polyethylene Glycol 3350 Powder 17 Gm Packet) 17 gm PO DAILY PRN PRN Reason: Constipation Rosuvastatin Calcium (Rosuvastatin 10 Mg Tab) 10 mg PO DAILY [facility] Last Admin: 06/17/21 09:00 Dose: 10 mg Documented by: Senna/Docusate Sodium (Docusate Sodium/Sennosides 50-8.6 Mg Tab) 1 tab PO BID PRN PRN Reason: Constipation Sodium Chloride (Sodium Chloride 0.9% 10 Ml Syringe) 10 ml FLUSH ASDIRECTED PRN PRN Reason: Keep Vein Open Last Admin: 06/17/21 04:47 Dose: 10 ml Documented by: Trazodone HCl (Trazodone 50 Mg Tab) 150 mg PO BEDTIME [facility] Discontinued Medications (Fluticasone/Salmeterol [Advair 250-50] *Ptom 1 puff INH BID [facility] Last Admin: 06/17/21 09:01 Dose: 1 puff Documented by: (Omeprazole [ Omeprazole] 20 Mg Capsule.) *Ptom 20 mg PO DAILY [facility] Last Admin: 06/17/21 09:04 Dose: 20 mg Documented by: (Paroxetine [Paxil] (40 Mg Tablet) *Ptom) 40 mg PO DAILY [facility] Last Admin: 06/17/21 09:01 Dose: 40 mg Documented by: Trazodone HCl (Trazodone 100 Mg Tab *Ptom) 150 mg PO BEDTIME [facility] Last Admin: 06/16/21 21:37 Dose: 150 mg Documented by: - Exam Quality Assessment: Supplemental Oxygen General: Alert, Oriented, Cooperative Neck: Supple Lungs: Clear to Auscultation Cardiovascular: Regular Rate GI/Abdominal Exam: Normal Bowel Sounds, Soft, Non-Tender Back Exam: Normal Inspection Extremities: Normal Inspection Skin: Warm Psy/Mental Status: Alert - Patient Data Lab Results Last 24 hrs: Laboratory Results - last 24 hr 06/16/21 06/16/21 06/16/21 Range/Units 11:34 11:34 11:34 WBC 6.7 (3.0-10.3) x10-3/uL RBC 3.97 (3.60-5.20) x10(6)uL Hgb 12.0 (11.4-15.5) g/dL Hct 36.9 (34.2-48.2) % MCV 92.9 (76.7-100.5) fL MCH 30.2 (23.9-33.9) pg MCHC 32.6 (31.9-34.8) g/dL RDW 14.0 (12.3-16.5) % Plt Count 311 (151-488) x10(3)uL MPV 5.7 L (7.1-12.4) fL Neut % (Auto) 58.3 (30.8-76.2) % Lymph % (Auto) 32.6 (18.4-52.1) % Emmet % (Auto) 6.9 (4.4-15.7) % Eos % (Auto) 1.6 (0.6-8.1) % Baso % (Auto) 0.6 (0.2-1.5) % Neut # (Auto) 3.9 (1.5-6.3) x10-3/uL Lymph # (Auto) 2.2 (1.0-4.4) x10-3/uL Emmet # (Auto) 0.5 (0.3-1.0) x10-3/uL Eos # (Auto) 0.1 (0.0-0.8) x10-3/uL Baso # (Auto) 0.0 (0.0-0.1) x10-3/uL Sodium 140 (135-145) mmol/L Potassium 3.9 (3.5-5.3) mmol/L Chloride 102 D (100-110) mmol/L Carbon Dioxide 31 (21-32) mmol/L BUN 11 (7-18) mg/dL Creatinine 0.7 (0.55-1.02) mg/dL Est Cr Clr Drug Dosing TNP Estimated GFR (MDRD) > 60 (>60) BUN/Creatinine Ratio 15.7 (9-20) Glucose 219 H D (80-116) mg/dL POC Glucose (80-116) mg/dL Calcium 9.0 (8.6-10.2) mg/dL Total Bilirubin 0.3 (0.1-1.3) mg/dL AST 9 (5-25) IU/L ALT 23 (12-36) U/L Alkaline Phosphatase 71 (56-112) IU/L Troponin I < 4.0 L (4.0-60.3) pg/mL Total Protein 7.3 (6.0-8.0) g/dL Albumin 3.5 (3.2-4.6) g/dL Globulin 3.8 g/dL Albumin/Globulin Ratio 0.9 TSH, Ultra Sensitive (0.36-3.74) IU/mL Urine Color (YELLOW) Urine Appearance (CLEAR) Urine pH (5.0-6.5) Ur Specific [place] (1.010-1.025) Urine Protein (NEGATIVE) mg/dL Urine Glucose (UA) (NORMAL) mg/dL Urine Ketones (NEGATIVE) mg/dL Urine Occult Blood (NEGATIVE) Urine Nitrite (NEGATIVE) Urine Bilirubin (NEGATIVE) Urine Urobilinogen (NEGATIVE) mg/dL Ur Leukocyte Esterase (NEGATIVE) Urine RBC (0-5) Urine WBC (0-5) Ur Squamous Epith Cells (NS,R,O) Urine Bacteria (NS) SARS-CoV-2 RNA (MICHAEL) (NEGATIVE) 06/16/21 06/16/21 06/16/21 Range/Units 11:38 12:25 17:53 WBC (3.0-10.3) x10-3/uL RBC (3.60-5.20) x10(6)uL Hgb (11.4-15.5) g/dL Hct (34.2-48.2) % MCV (76.7-100.5) fL MCH (23.9-33.9) pg MCHC (31.9-34.8) g/dL RDW (12.3-16.5) % Plt Count (151-488) x10(3)uL MPV (7.1-12.4) fL Neut % (Auto) (30.8-76.2) % Lymph % (Auto) (18.4-52.1) % Emmet % (Auto) (4.4-15.7) % Eos % (Auto) (0.6-8.1) % Baso % (Auto) (0.2-1.5) % Neut # (Auto) (1.5-6.3) x10-3/uL Lymph # (Auto) (1.0-4.4) x10-3/uL Emm[place] # (Auto) (0.3-1.0) x10-3/uL Eos # (Auto) (0.0-0.8) x10-3/uL Baso # (Auto) (0.0-0.1) x10-3/uL Sodium (135-145) mmol/L Potassium (3.5-5.3) mmol/L Chloride (100-110) mmol/L Carbon Dioxide (21-32) mmol/L BUN (7-18) mg/dL Creatinine (0.55-1.02) mg/dL Est Cr Clr Drug Dosing Estimated GFR (MDRD) (>60) BUN/Creatinine Ratio (9-20) Glucose (80-116) mg/dL POC Glucose 131 H (80-116) mg/dL Calcium (8.6-10.2) mg/dL Total Bilirubin (0.1-1.3) mg/dL AST (5-25) IU/L ALT (12-36) U/L Alkaline Phosphatase (56-112) IU/L Troponin I (4.0-60.3) pg/mL Total Protein (6.0-8.0) g/dL Albumin (3.2-4.6) g/dL Globulin g/dL Albumin/Globulin Ratio TSH, Ultra Sensitive (0.36-3.74) IU/mL Urine Color Yellow (YELLOW) Urine Appearance Cloudy (CLEAR) Urine pH 6.0 (5.0-6.5) Ur Specific [place] 1.020 (1.010-1.025) Urine Protein Negative (NEGATIVE) mg/dL Urine Glucose (UA) >1000 H (NORMAL) mg/dL Urine Ketones Negative (NEGATIVE) mg/dL Urine Occult Blood Moderate H (NEGATIVE) Urine Nitrite Negative (NEGATIVE) Urine Bilirubin Negative (NEGATIVE) Urine Urobilinogen 1 H (NEGATIVE) mg/dL Ur Leukocyte Esterase Large H (NEGATIVE) Urine RBC 0-5 (0-5) Urine WBC 40-50 H (0-5) Ur Squamous Epith Cells Few H (NS,R,O) Urine Bacteria Many H (NS) SARS-CoV-2 RNA (MICHAEL) Negative (NEGATIVE) 06/17/21 06/17/21 06/17/21 Range/Units 06:02 06:02 06:02 WBC 6.3 (3.0-10.3) x10-3/uL RBC 3.98 (3.60-5.20) x10(6)uL Hgb 11.9 (11.4-15.5) g/dL Hct 37.0 (34.2-48.2) % MCV 92.8 (76.7-100.5) fL MCH 29.9 (23.9-33.9) pg MCHC 32.3 (31.9-34.8) g/dL RDW 14.0 (12.3-16.5) % Plt Count 324 (151-488) x10(3)uL MPV 5.7 L (7.1-12.4) fL Neut % (Auto) 55.5 (30.8-76.2) % Lymph % (Auto) 36.4 (18.4-52.1) % Emm[place] % (Auto) 6.0 (4.4-15.7) % Eos % (Auto) 1.8 (0.6-8.1) % Baso % (Auto) 0.3 (0.2-1.5) % Neut # (Auto) 3.5 (1.5-6.3) x10-3/uL Lymph # (Auto) 2.3 (1.0-4.4) x10-3/uL [place] # (Auto) 0.4 (0.3-1.0) x10-3/uL Eos # (Auto) 0.1 (0.0-0.8) x10-3/uL Baso # (Auto) 0.0 (0.0-0.1) x10-3/uL Sodium 142 (135-145) mmol/L Potassium 3.9 (3.5-5.3) mmol/L Chloride 103 (100-110) mmol/L Carbon Dioxide 33 H (21-32) mmol/L BUN 8 (7-18) mg/dL Creatinine 0.5 L (0.55-1.02) mg/dL Est Cr Clr Drug Dosing 69.83 Estimated GFR (MDRD) > 60 (>60) BUN/Creatinine Ratio 16.0 (9-20) Glucose 167 H (80-116) mg/dL POC Glucose (80-116) mg/dL Calcium 8.8 (8.6-10.2) mg/dL Total Bilirubin 0.4 (0.1-1.3) mg/dL AST 14 D (5-25) IU/L ALT 25 (12-36) U/L Alkaline Phosphatase 67 (56-112) IU/L Troponin I (4.0-60.3) pg/mL Total Protein 7.1 (6.0-8.0) g/dL Albumin 3.4 (3.2-4.6) g/dL Globulin 3.7 g/dL Albumin/Globulin Ratio 0.9 TSH, Ultra Sensitive 0.56 (0.36-3.74) IU/mL Urine Color (YELLOW) Urine Appearance (CLEAR) Urine pH (5.0-6.5) Ur Specific [place] (1.010-1.025) Urine Protein (NEGATIVE) mg/dL Urine Glucose (UA) (NORMAL) mg/dL Urine Ketones (NEGATIVE) mg/dL Urine Occult Blood (NEGATIVE) Urine Nitrite (NEGATIVE) Urine Bilirubin (NEGATIVE) Urine Urobilinogen (NEGATIVE) mg/dL Ur Leukocyte Esterase (NEGATIVE) Urine RBC (0-5) Urine WBC (0-5) Ur Squamous Epith Cells (NS,R,O) Urine Bacteria (NS) SARS-CoV-2 RNA (MICHAEL) (NEGATIVE) Result Diagrams: 06/17/21 06:02 06/17/21 06:02 Andrew Results Last 24 hrs: Microbiology 06/16/21 11:38 Urine Culture - Preliminary Urine, Catheterized Gram Negative Rods Sepsis Event Note - Evaluation Sepsis Screening Result: No Definite Risk - Focused Exam Vital Signs: Vital Signs Temp Pulse Pulse Resp BP BP Pulse Ox 06/17/21 08:58 89 125/72 06/17/21 08:56 125/72 06/17/21 07:40 97.9 F 90 19 125/72 94 L 06/17/21 07:00 98.2 F 86 18 148/78 H 94 L 06/17/21 03:00 98.1 F 87 18 154/80 H 95 06/16/21 23:00 98.2 F 84 18 136/82 94 L - Problem List & Annotations (1) CAP (community acquired pneumonia) SNOMED Code(s): 556983101 Code(s): J18.9 - PNEUMONIA, UNSPECIFIED ORGANISM Status: Acute Current Visit: Yes (2) Altered mental status SNOMED Code(s): 863132341 Code(s): R41.82 - ALTERED MENTAL STATUS, UNSPECIFIED Status: Acute Current Visit: Yes Qualifiers: Altered mental status type: delirium Qualified Code(s): R41.0 - Disorientation, unspecified (3) Bacteriuria SNOMED Code(s): 98471936 Code(s): R82.71 - BACTERIURIA Status: Acute Current Visit: Yes (4) Abnormal chest x-ray SNOMED Code(s): 110075890, 522578512 Code(s): R93.89 - ABNORMAL FINDINGS ON DX IMAGING OF OTH BODY STRUCTURES Status: Acute Current Visit: Yes (5) MDD (major depressive disorder) SNOMED Code(s): 681166449 Code(s): F32.9 - MAJOR DEPRESSIVE DISORDER, SINGLE EPISODE, UNSPECIFIED Status: Chronic Current Visit: Yes Qualifiers: Major depression recurrence: recurrent (6) Obesity SNOMED Code(s): 753511960, 279865129 Code(s): E66.9 - OBESITY, UNSPECIFIED Status: Acute Current Visit: Yes (7) COPD (chronic obstructive pulmonary disease) SNOMED Code(s): 54743576 Code(s): J44.9 - CHRONIC OBSTRUCTIVE PULMONARY DISEASE, UNSPECIFIED Status: Acute Current Visit: No Qualifiers: COPD type: unspecified COPD Qualified Code(s): J44.9 - Chronic obstructive pulmonary disease, unspecified Annotation/Comment:: SVN with Duonebs,Solumedrol IV and Abx-She has no WBC,or fever but will do for exacerbation of COPD (8) Weakness SNOMED Code(s): 69163419 Code(s): R53.1 - WEAKNESS Status: Acute Current Visit: No (9) HTN, Benign essential hypertension SNOMED Code(s): 7281743 Code(s): I10 - ESSENTIAL (PRIMARY) HYPERTENSION Status: Chronic Priority: Medium Current Visit: No Annotation/Comment:: cont. metoprolol, lisinopril. (10) Peripheral neuropathic pain SNOMED Code(s): 798916468 Code(s): M79.2 - NEURALGIA AND NEURITIS, UNSPECIFIED Status: Acute Curr ent Visit: Yes (11) Chronic radicular low back pain SNOMED Code(s): 76326245, 65855949 Code(s): M54.16 - RADICULOPATHY, LUMBAR REGION; G89.29 - OTHER CHRONIC PAIN Status: Acute Current Visit: Yes (12) Headache SNOMED Code(s): 00027095 Code(s): R51.9 - HEADACHE, UNSPECIFIED Status: Acute Current Visit: Yes Qualifiers: Headache type: tension-type - Problem List Review Problem List Initiated/Reviewed/Updated: Yes - My Orders Last 24 Hours: My Active Orders 06/16/21 20:00 Azithromycin [Zithromax] 500 mg Sodium Chloride 0.9% [Normal Saline AdvBag] 250 ml IV Q24H 06/17/21 09:40 Admission Status [Patient Status] [ADT] Routine 06/17/21 09:43 PT Evaluation and Treatment [CONS] Routine 06/17/21 09:44 OT Evaluation and Treatment [CONS] Routine 06/17/21 09:46 Acetaminophen [Tylenol Extra Strength] 500 mg PO Q6H PRN - Plan Plan:: Continue with Rocephin, azithromycin.Prednisone for COPD exacerbation. Control headache with Tylenol. Physical therapy and occupational therapy to see her later this morning. Change it to inpatient for pneumonia treatment and UTI.
[2021-06-17] MEDS: Multivitamin Tab PO SCH (10:16)
[2021-06-17] MEDS: Calcium Carbonate 500 MG Tablet PO SCH ×2 (10:16→22:53)
[2021-06-17] MEDS: predniSONE 20 MG Tab PO SCH (11:27)
[2021-06-17] MEDS: cefTRIAXone 1 GM Vial IVPUSH SCH (12:39)
[2021-06-17] MEDS: Enoxaparin 40 MG/0.4 ML Syringe SUBCUT SCH (14:33)
[2021-06-17] MEDS: Azithromycin 500 MG in Sodium Chloride 0.9% 250 ML IV SCH (20:00)
[2021-06-17] MEDS: Formoterol/Mometasone 200-5 MCG 8.8 GM Inhaler IH SCH (22:51)
[2021-06-17] MEDS: traZODone 50 MG Tab PO SCH (22:55)
[2021-06-17] MEDS: Latanoprost 0.005% Ophth Soln 2.5 ML Bottle EYEBOTH SCH (22:57)
[2021-06-18] MEDS: Acetaminophen 650 MG Tab.ER PO SCH ×3 (06:26→21:53)
[2021-06-18] MEDS: Pantoprazole 40 MG Tab.CR PO SCH (06:27)
[2021-06-18] MEDS: ALPRAZolam 0.5 MG Tab PO SCH ×3 (06:33→16:28)
[2021-06-18] MEDS: Albuterol/Ipratropium 3.0-0.5 MG/3 ML Neb Soln INH SCH ×4 (07:37→20:45)
[2021-06-18] MEDS: Rosuvastatin 10 MG Tab PO SCH (08:16)
[2021-06-18] MEDS: predniSONE 20 MG Tab PO SCH (08:16)
[2021-06-18] MEDS: Losartan 100 MG Tab PO SCH (08:16)
[2021-06-18] MEDS: Methimazole 5 MG Tab PO SCH (08:17)
[2021-06-18] MEDS: Multivitamin Tab PO SCH (08:18)
[2021-06-18] MEDS: Calcium Carbonate 500 MG Tablet PO SCH ×2 (08:18→20:47)
[2021-06-18] MEDS: Formoterol/Mometasone 200-5 MCG 8.8 GM Inhaler IH SCH ×2 (08:18→20:45)
[2021-06-18] MEDS: Benzonatate 100 MG Cap PO SCH ×3 (08:19→20:46)
[2021-06-18] MEDS: PARoxetine 20 MG Tab PO SCH (08:19)
[2021-06-18] MEDS: Metoprolol Succinate 50 MG Tab.ER PO SCH (08:20)
[2021-06-18] MEDS: Budesonide 0.5 MG/2 ML Neb Susp INH SCH ×2 (08:21→20:45)
--- NOTE | 2021-06-18 09:21 | PCM.PN ---
- General Info Date of Service: 06/18/21 Subjective Update: Asha complains of headache, low back pain, dizziness. These are chronic complaints. She denies fever or chills. Functional Status: Reports: Tolerating Diet. Denies: Ambulating - Review of Systems HEENT: Reports: No Symptoms Pulmonary: Reports: No Symptoms Cardiovascular: Reports: No Symptoms Gastrointestinal: Reports: No Symptoms - Patient Data Vitals - Most Recent: Last Vital Signs Temp 97.8 F 06/18/21 07:37 Pulse 86 06/18/21 08:20 Resp 18 06/18/21 07:37 BP 145/73 H 06/18/21 08:20 Pulse Ox 96 06/18/21 07:37 Weight - Most Recent: 87.231 kg I&O - Last 24 Hours: Intake & Output 06/17/21 06/18/21 06/18/21 22:59 06:59 14:59 Intake Total 480 Balance 480 Andrew Results Last 24 Hours: Microbiology 06/16/21 11:38 Urine Culture - Final Urine, Catheterized Escherichia Coli Med Orders - Current: Current Medications Acetaminophen (Acetaminophen 650 Mg Tab.Er) 1,300 mg PO Q8H REPLACED BY [facility] Last Admin: 06/18/21 06:26 Dose: 1,300 mg Documented by: Albuterol (Albuterol 8 Gm Inhaler) 0 gm INH Q4H PRN PRN Reason: Wheezing Albuterol/Ipratropium (Albuterol/Ipratropium 3.0-0.5 Mg/3 Ml Neb Soln) 3 ml INH QIDRT REPLACED BY [facility] Last Admin: 06/18/21 07:37 Dose: 3 ml Documented by: Alprazolam (Alprazolam 0.5 Mg Tab) 1.5 mg PO TID@0600,1200,1700 REPLACED BY [facility] Last Admin: 06/18/21 06:33 Dose: 1.5 mg Documented by: Artificial Tears (Hypromellose 0.3% Ophth Soln 15 Ml Bottle) 0 ml EYEBOTH DAILY PRN PRN Reason: Dry Eyes Benzonatate (Benzonatate 100 Mg Cap) 100 mg PO TID REPLACED BY [facility] Last Admin: 06/18/21 08:19 Dose: 100 mg Documented by: Budesonide (Budesonide 0.5 Mg/2 Ml Neb Susp) 0.5 mg INH BID REPLACED BY [facility] Last Admin: 06/18/21 08:21 Dose: 0.5 mg Documented by: Calcium Carbonate/Glycine (Calcium Carbonate 500 Mg Tablet) 500 mg PO BID REPLACED BY [facility] Last Admin: 06/18/21 08:18 Dose: 500 mg Documented by: Ceftriaxone Sodium (Ceftriaxone 1 Gm Vial) 1 gm IVPUSH Q24H REPLACED BY [facility] Last Admin: 06/17/21 12:39 Dose: 1 gm Documented by: Enoxaparin Sodium (Enoxaparin 40 Mg/0.4 Ml Syringe) 40 mg SUBCUT Q24H REPLACED BY [facility] Last Admin: 06/17/21 14:33 Dose: 40 mg Documented by: Fluticasone Propionate (Fluticasone Propionate Nasal [place] 16 Gm Bottle) 0 gm NASBOTH DAILY PRN PRN Reason: Congestion Furosemide (Furosemide 20 Mg Tab) 20 mg PO DAILY PRN PRN Reason: Edema Guaifenesin (Guaifenesin 100 Mg/5 Ml Soln 5 Ml Ud Cup) 200 mg PO Q6H PRN PRN Reason: Cough Azithromycin 500 mg/ Sodium (Chloride) 250 mls @ 250 mls/hr IV Q24H REPLACED BY [facility] Last Admin: 06/17/21 20:00 Dose: 250 mls/hr Documented by: Latanoprost (Latanoprost 0.005% Ophth Soln 2.5 Ml Bottle) 0 ml EYEBOTH BEDTIME REPLACED BY [facility] Last Admin: 06/17/21 22:57 Dose: 1 drop Documented by: Losartan Potassium (Losartan 100 Mg Tab) 100 mg PO DAILY REPLACED BY [facility] Last Admin: 06/18/21 08:16 Dose: 100 mg Documented by: Methimazole (Methimazole 5 Mg Tab) 5 mg PO DAILY REPLACED BY [facility] Last Admin: 06/18/21 08:17 Dose: 5 mg Documented by: Metoprolol Succinate (Metoprolol Succinate 50 Mg Tab.Er) 50 mg PO DAILY REPLACED BY [facility] Last Admin: 06/18/21 08:20 Dose: 50 mg Documented by: Mometasone Furoate/Formoterol Fumar (Formoterol/Mometasone 200-5 Mcg 8.8 Gm Inhaler) 2 puff IH BID REPLACED BY [facility] Last Admin: 06/18/21 08:18 Dose: 2 puff Documented by: Multivitamins/Minerals/Vitamin C (Multivitamin Tab) 1 tab PO DAILY REPLACED BY [facility] Last Admin: 06/18/21 08:18 Dose: 1 tab Documented by: Ondansetron HCl (Ondansetron 4 Mg/2 Ml Sdv) 4 mg IVPUSH Q4H PRN PRN Reason: Nausea/Vomiting Last Admin: 06/17/21 04:48 Dose: 4 mg Documented by: Pantoprazole Sodium (Pantoprazole 40 Mg Tab.Cr) 40 mg PO DAILY@0600 REPLACED BY [facility] Last Admin: 06/18/21 06:27 Dose: 40 mg Documented by: Paroxetine HCl (Paroxetine 20 Mg Tab) 40 mg PO DAILY REPLACED BY [facility] Last Admin: 06/18/21 08:19 Dose: 40 mg Documented by: Polyethylene Glycol (Polyethylene Glycol 3350 Powder 17 Gm Packet) 17 gm PO DAILY PRN PRN Reason: Constipation Prednisone (Prednisone 20 Mg Tab) 20 mg PO WITHBREAKFAST REPLACED BY [facility] Last Admin: 06/18/21 08:16 Dose: 20 mg Documented by: Rosuvastatin Calcium (Rosuvastatin 10 Mg Tab) 10 mg PO DAILY REPLACED BY [facility] Last Admin: 06/18/21 08:16 Dose: 10 mg Documented by: Senna/Docusate Sodium (Docusate Sodium/Sennosides 50-8.6 Mg Tab) 1 tab PO BID PRN PRN Reason: Constipation Sodium Chloride (Sodium Chloride 0.9% 10 Ml Syringe) 10 ml FLUSH ASDIRECTED PRN PRN Reason: Keep Vein Open Last Admin: 06/17/21 21:46 Dose: 10 ml Documented by: Trazodone HCl (Trazodone 50 Mg Tab) 150 mg PO BEDTIME REPLACED BY [facility] Last Admin: 06/17/21 22:55 Dose: 150 mg Documented by: Discontinued Medications (Fluticasone/Salmeterol [Advair 250-50] *Ptom 1 puff INH BID REPLACED BY [facility] Last Admin: 06/17/21 09:01 Dose: 1 puff Documented by: (Omeprazole [ Omeprazole] 20 Mg Capsule.) *Ptom 20 mg PO DAILY REPLACED BY [facility] Last Admin: 06/17/21 09:04 Dose: 20 mg Documented by: (Paroxetine [Paxil] (40 Mg Tablet) *Ptom) 40 mg PO DAILY REPLACED BY [facility] Last Admin: 06/17/21 09:01 Dose: 40 mg Documented by: Trazodone HCl (Trazodone 100 Mg Tab *Ptom) 150 mg PO BEDTIME REPLACED BY [facility] Last Admin: 06/16/21 21:37 Dose: 150 mg Documented by: - Exam Quality Assessment: Supplemental Oxygen General: Alert, Oriented, Cooperative Neck: Supple Lungs: Clear to Auscultation Cardiovascular: Regular Rate GI/Abdominal Exam: Soft - Patient Data Result Diagrams: 06/17/21 06:02 06/17/21 06:02 Andrew Results Last 24 hrs: Microbiology 06/16/21 11:38 Urine Culture - Final Urine, Catheterized Escherichia Coli Sepsis Event Note - Evaluation Sepsis Screening Result: No Definite Risk - Focused Exam Vital Signs: Vital Signs Temp Pulse Pulse Resp BP BP Pulse Ox 06/18/21 08:20 86 145/73 H 06/18/21 08:16 145/73 H 06/18/21 07:37 97.8 F 86 18 145/73 H 96 06/18/21 05:00 98.2 F 88 16 138/78 93 L 06/18/21 01:17 06/18/21 00:00 90 16 143/79 H 93 L 06/17/21 23:15 80 06/17/21 23:05 80 Pulse Ox 06/18/21 08:20 06/18/21 08:16 06/18/21 07:37 06/18/21 05:00 06/18/21 01:17 93 L 06/18/21 00:00 06/17/21 23:15 06/17/21 23:05 - Problem List & Annotations (1) CAP (community acquired pneumonia) SNOMED Code(s): 121484400 Code(s): J18.9 - PNEUMONIA, UNSPECIFIED ORGANISM Status: Acute Current Visit: Yes (2) Altered mental status SNOMED Code(s): 211105594 Code(s): R41.82 - ALTERED MENTAL STATUS, UNSPECIFIED Status: Acute Current Visit: Yes Qualifiers: Altered mental status type: delirium Qualified Code(s): R41.0 - Disorientation, unspecified (3) Bacteriuria SNOMED Code(s): 27641929 Code(s): R82.71 - BACTERIURIA Status: Acute Current Visit: Yes (4) Abnormal chest x-ray SNOMED Code(s): 983615837, 750818233 Code(s): R93.89 - ABNORMAL FINDINGS ON DX IMAGING OF OTH BODY STRUCTURES Status: Acute Current Visit: Yes (5) MDD (major depressive disorder) SNOMED Code(s): 959464433 Code(s): F32.9 - MAJOR DEPRESSIVE DISORDER, SINGLE EPISODE, UNSPECIFIED Status: Chronic Current Visit: Yes Qualifiers: Major depression recurrence: recurrent (6) Obesity SNOMED Code(s): 201321117, 762332644 Code(s): E66.9 - OBESITY, UNSPECIFIED Status: Acute Current Visit: Yes (7) COPD (chronic obstructive pulmonary disease) SNOMED Code(s): 34046172 Code(s): J44.9 - CHRONIC OBSTRUCTIVE PULMONARY DISEASE, UNSPECIFIED Status: Acute Current Visit: No Qualifiers: COPD type: unspecified COPD Qualified Code(s): J44.9 - Chronic obstructive pulmonary disease, unspecified Annotation/Comment:: SVN with Duonebs,Solumedrol IV and Abx-She has no WBC,or fever but will do for exacerbation of COPD (8) Weakness SNOMED Code(s): 53369843 Code(s): R53.1 - WEAKNESS Status: Acute Current Visit: Yes (9) HTN, Benign essential hypertension SNOMED Code(s): 3794848 Code(s): I10 - ESSENTIAL (PRIMARY) HYPERTENSION Status: Chronic Priority: Medium Current Visit: No Annotation/Comment:: cont. metoprolol, lisinopril. (10) Peripheral neuropathic pain SNOMED Code(s): 538403380 Code(s): M79.2 - NEURALGIA AND NEURITIS, UNSPECIFIED Status: Acute Current Visit: Yes (11) Chronic radicular low back pain SNOMED Code(s): 56170838, 05295248 Code(s): M54.16 - RADICULOPATHY, LUMBAR REGION; G89.29 - OTHER CHRONIC PAIN Status: Acute Current Visit: Yes (12) Headache SNOMED Code(s): 11818619 Code(s): R51.9 - HEADACHE, UNSPECIFIED Status: Acute Current Visit: Yes Qualifiers: Headache type: tension-type - Problem List Review Problem List Initiated/Reviewed/Updated: Yes - My Orders Last 24 Hours: My Active Orders 06/17/21 09:40 Admission Status [Patient Status] [ADT] Routine 06/17/21 09:43 PT Evaluation and Treatment [CONS] Routine 06/17/21 09:44 OT Evaluation and Treatment [CONS] Routine 06/17/21 10:30 predniSONE 20 mg PO WITHBREAKFAST - Plan Plan:: Continue with Rocephin, azithromycin & Prednisone for COPD exacerbation. Control headache with Tylenol. Physical therapy and occupational therapy to see her. [facility] culture grew Escherichia coli, which is pansensitive and should be well covered with Rocephin.
[2021-06-18] MEDS ORDERED: 50% Dextrose in Water 50 ML Syringe IVPUSH PRN (09:48)
[2021-06-18] MEDS ORDERED: Glucagon,Human Recombinant 1 MG Vial IM PRN (09:48)
[2021-06-18] MEDS: Clotrimazole 1% Crm 30 GM Tube TOP SCH ×2 (11:40→20:45)
[2021-06-18] MEDS ORDERED: Insulin Lispro 100 Unit/ML 3 ML KwikPen SUBCUT ONE (11:58)
[2021-06-18] MEDS: Insulin Lispro 100 Unit/ML 3 ML KwikPen SUBCUT SCH ×2 (12:06→17:55)
[2021-06-18] MEDS: cefTRIAXone 1 GM Vial IVPUSH SCH (13:14)
[2021-06-18] MEDS: Sodium Chloride 0.9% 10 ML Syringe FLUSH PRN ×2 (13:19→21:51)
[2021-06-18] MEDS: Enoxaparin 40 MG/0.4 ML Syringe SUBCUT SCH (14:04)
[2021-06-18] MEDS: Azithromycin 500 MG in Sodium Chloride 0.9% 250 ML IV SCH (20:41)
[2021-06-18] MEDS: traZODone 50 MG Tab PO SCH (20:44)
[2021-06-18] MEDS: Latanoprost 0.005% Ophth Soln 2.5 ML Bottle EYEBOTH SCH (20:45)
[2021-06-19] MEDS: ALPRAZolam 0.5 MG Tab PO SCH ×3 (06:38→16:55)
[2021-06-19] MEDS: Acetaminophen 650 MG Tab.ER PO SCH ×3 (06:38→21:09)
[2021-06-19] MEDS: Pantoprazole 40 MG Tab.CR PO SCH (06:38)
[2021-06-19] MEDS: Albuterol/Ipratropium 3.0-0.5 MG/3 ML Neb Soln INH SCH ×4 (06:48→20:48)
--- NOTE | 2021-06-19 08:57 | PCM.PN ---
- General Info Date of Service: 06/19/21 Admission Dx/Problem (Free Text): Patient states that her breathing is about back to baseline with shortness of breath. She wears oxygen least 3 L a day. She denies fevers, chills, cough. Apparently according to the nurses she is not worked with PT/OT. She lives at home in a wheelchair. Walks a little bit in her house with a walker. - Patient Data Vitals - Most Recent: Last Vital Signs Temp 97.5 F 06/19/21 04:00 Pulse 85 06/19/21 06:48 Resp 16 06/19/21 04:00 BP 123/68 06/19/21 04:00 Pulse Ox 94 L 06/19/21 06:48 Weight - Most Recent: 192 lb 5 oz I&O - Last 24 Hours: Intake & Output 06/18/21 06/19/21 06/19/21 22:59 06:59 14:59 Intake Total 1210 Output Total 5 Balance 1205 Lab Results Last 24 Hours: Laboratory Results - last 24 hr 06/18/21 06/18/21 06/19/21 Range/Units 11:39 17:53 06:43 POC Glucose 230 H D 255 H 142 H D (80-116) mg/dL Andrew Results Last 24 Hours: Microbiology 06/16/21 11:38 Urine Culture - Final Urine, Catheterized Escherichia Coli Med Orders - Current: Current Medications Acetaminophen (Acetaminophen 650 Mg Tab.Er) 1,300 mg PO Q8H [facility] Last Admin: 06/19/21 06:38 Dose: 1,300 mg Documented by: Albuterol (Albuterol 8 Gm Inhaler) 0 gm INH Q4H PRN PRN Reason: Wheezing Albuterol/Ipratropium (Albuterol/Ipratropium 3.0-0.5 Mg/3 Ml Neb Soln) 3 ml INH QIDRT [facility] Last Admin: 06/19/21 06:48 Dose: 3 ml Documented by: Alprazolam (Alprazolam 0.5 Mg Tab) 1.5 mg PO TID@0600,1200,1700 [facility] Last Admin: 06/19/21 06:38 Dose: 1.5 mg Documented by: Artificial Tears (Hypromellose 0.3% Ophth Soln 15 Ml Bottle) 0 ml EYEBOTH DAILY PRN PRN Reason: Dry Eyes Benzonatate (Benzonatate 100 Mg Cap) 100 mg PO TID [facility] Last Admin: 06/18/21 20:46 Dose: 100 mg Documented by: Budesonide (Budesonide 0.5 Mg/2 Ml Neb Susp) 0.5 mg INH BID [facility] Last Admin: 06/18/21 20:45 Dose: 0.5 mg Documented by: Calcium Carbonate/Glycine (Calcium Carbonate 500 Mg Tablet) 500 mg PO BID [facility] Last Admin: 06/18/21 20:47 Dose: 500 mg Documented by: Ceftriaxone Sodium (Ceftriaxone 1 Gm Vial) 1 gm IVPUSH Q24H [facility] Last Admin: 06/18/21 13:14 Dose: 1 gm Documented by: Clotrimazole (Clotrimazole 1% Crm 30 Gm Tube) 0 gm TOP BID [facility] Last Admin: 06/18/21 20:45 Dose: 1 applic Documented by: Dextrose/Water (50% Dextrose In Water 50 Ml Syringe) 50 ml IVPUSH ASDIRECTED PRN PRN Reason: Hypoglycemia Enoxaparin Sodium (Enoxaparin 40 Mg/0.4 Ml Syringe) 40 mg SUBCUT Q24H [facility] Last Admin: 06/18/21 14:04 Dose: 40 mg Documented by: Fluticasone Propionate (Fluticasone Propionate Nasal [place] 16 Gm Bottle) 0 gm NASBOTH DAILY PRN PRN Reason: Congestion Furosemide (Furosemide 20 Mg Tab) 20 mg PO DAILY PRN PRN Reason: Edema Glucagon (Glucagon,Human Recombinant 1 Mg Vial) 1 mg IM ASDIRECTED PRN PRN Reason: Hypoglycemia Guaifenesin (Guaifenesin 100 Mg/5 Ml Soln 5 Ml Ud Cup) 200 mg PO Q6H PRN PRN Reason: Cough Azithromycin 500 mg/ Sodium (Chloride) 250 mls @ 250 mls/hr IV Q24H [facility] Last Admin: 06/18/21 20:41 Dose: 250 mls/hr Documented by: Insulin Human Lispro (Insulin Lispro 100 Unit/Ml 3 Ml Kwikpen) 0 unit SUBCUT TIDMEALS [facility]; Protocol Last Admin: 06/18/21 17:55 Dose: 6 unit Documented by: Latanoprost (Latanoprost 0.005% Ophth Soln 2.5 Ml Bottle) 0 ml EYEBOTH BEDTIME [facility] Last Admin: 06/18/21 20:45 Dose: 1 drop Documented by: Losartan Potassium (Losartan 100 Mg Tab) 100 mg PO DAILY [facility] Last Admin: 06/18/21 08:16 Dose: 100 mg Documented by: Methimazole (Methimazole 5 Mg Tab) 5 mg PO DAILY [facility] Last Admin: 06/18/21 08:17 Dose: 5 mg Documented by: Metoprolol Succinate (Metoprolol Succinate 50 Mg Tab.Er) 50 mg PO DAILY [facility] Last Admin: 06/18/21 08:20 Dose: 50 mg Documented by: Mometasone Furoate/Formoterol Fumar (Formoterol/Mometasone 200-5 Mcg 8.8 Gm Inha ler) 2 puff IH BID [facility] Last Admin: 06/18/21 20:45 Dose: 2 puff Documented by: Multivitamins/Minerals/Vitamin C (Multivitamin Tab) 1 tab PO DAILY [facility] Last Admin: 06/18/21 08:18 Dose: 1 tab Documented by: Ondansetron HCl (Ondansetron 4 Mg/2 Ml Sdv) 4 mg IVPUSH Q4H PRN PRN Reason: Nausea/Vomiting Last Admin: 06/17/21 04:48 Dose: 4 mg Documented by: Pantoprazole Sodium (Pantoprazole 40 Mg Tab.Cr) 40 mg PO DAILY@0600 [facility] Last Admin: 06/19/21 06:38 Dose: 40 mg Documented by: Paroxetine HCl (Paroxetine 20 Mg Tab) 40 mg PO DAILY [facility] Last Admin: 06/18/21 08:19 Dose: 40 mg Documented by: Polyethylene Glycol (Polyethylene Glycol 3350 Powder 17 Gm Packet) 17 gm PO DAILY PRN PRN Reason: Constipation Prednisone (Prednisone 20 Mg Tab) 20 mg PO WITHBREAKFAST [facility] Stop: 06/21/21 08:01 Last Admin: 06/18/21 08:16 Dose: 20 mg Documented by: Rosuvastatin Calcium (Rosuvastatin 10 Mg Tab) 10 mg PO DAILY [facility] Last Admin: 06/18/21 08:16 Dose: 10 mg Documented by: Senna/Docusate Sodium (Docusate Sodium/Sennosides 50-8.6 Mg Tab) 1 tab PO BID PRN PRN Reason: Constipation Sodium Chloride (Sodium Chloride 0.9% 10 Ml Syringe) 10 ml FLUSH ASDIRECTED PRN PRN Reason: Keep Vein Open Last Admin: 06/18/21 21:51 Dose: 10 ml Documented by: Trazodone HCl (Trazodone 50 Mg Tab) 150 mg PO BEDTIME [facility] Last Admin: 06/18/21 20:44 Dose: 150 mg Documented by: Discontinued Medications (Fluticasone/Salmeterol [Advair 250-50] *Ptom 1 puff INH BID [facility] Last Admin: 06/17/21 09:01 Dose: 1 puff Documented by: (Omeprazole [ Omeprazole] 20 Mg Capsule.) *Ptom 20 mg PO DAILY [facility] Last Admin: 06/17/21 09:04 Dose: 20 mg Documented by: (Paroxetine [Paxil] (40 Mg Tablet) *Ptom) 40 mg PO DAILY [facility] Last Admin: 06/17/21 09:01 Dose: 40 mg Documented by: Trazodone HCl (Trazodone 100 Mg Tab *Ptom) 150 mg PO BEDTIME [facility] Last Admin: 06/16/21 21:37 Dose: 150 mg Documented by: - Exam General: Alert, Oriented, Cooperative Neck: Supple Lungs: Clear to Auscultation, Normal Respiratory Effort Cardiovascular: Regular Rate, Regular Rhythm, No Murmurs Extremities: No Pedal Edema Psy/Mental Status: Alert, Normal Affect, Normal Mood - Patient Data Lab Results Last 24 hrs: Laboratory Results - last 24 hr 06/18/21 06/18/21 06/19/21 Range/Units 11:39 17:53 06:43 POC Glucose 230 H D 255 H 142 H D (80-116) mg/dL Result Diagrams: 06/17/21 06:02 06/17/21 06:02 Andrew Results Last 24 hrs: Microbiology 06/16/21 11:38 Urine Culture - Final Urine, Catheterized Escherichia Coli Sepsis Event Note - Evaluation Sepsis Screening Result: No Definite Risk - Focused Exam Vital Signs: Vital Signs Temp Pulse Resp BP Pulse Ox Pulse Ox 06/19/21 06:48 85 94 L 06/19/21 04:00 97.5 F 81 16 123/68 92 L 06/19/21 01:00 97.8 F 78 18 135/74 92 L 92 L 06/18/21 21:00 98.3 F 83 18 145/73 H 94 L - Problem List & Annotations (1) Altered mental status SNOMED Code(s): 421013486 Code(s): R41.82 - ALTERED MENTAL STATUS, UNSPECIFIED Status: Acute Current Visit: Yes Qualifiers: Altered mental status type: delirium Qualified Code(s): R41.0 - Disorien tation, unspecified (2) CAP (community acquired pneumonia) SNOMED Code(s): 462961039 Code(s): J18.9 - PNEUMONIA, UNSPECIFIED ORGANISM Status: Acute Current Visit: Yes (3) Chronic radicular low back pain SNOMED Code(s): 30365425, 34328126 Code(s): M54.16 - RADICULOPATHY, LUMBAR REGION; G89.29 - OTHER CHRONIC PAIN Status: Acute Current Visit: Yes (4) Encephalopathy SNOMED Code(s): 12578637 Code(s): G93.40 - ENCEPHALOPATHY, UNSPECIFIED Status: Acute Current Visit: Yes (5) Obesity SNOMED Code(s): 855174403, 827700440 Code(s): E66.9 - OBESITY, UNSPECIFIED Status: Acute Current Visit: Yes (6) UTI (urinary tract infection) SNOMED Code(s): 47534086 Code(s): N39.0 - URINARY TRACT INFECTION, SITE NOT SPECIFIED Status: Acute Current Visit: Yes (7) MDD (major depressive disorder) SNOMED Code(s): 017183475 Code(s): F32.9 - MAJOR DEPRESSIVE DISORDER, SINGLE EPISODE, UNSPECIFIED Status: Chronic Current Visit: Yes Qualifiers: Major depression recurrence: recurrent (8) COPD (chronic obstructive pulmonary disease) SNOMED Code(s): 21108002 Code(s): J44.9 - CHRONIC OBSTRUCTIVE PULMONARY DISEASE, UNSPECIFIED Status: Acute Current Visit: No Qualifiers: COPD type: unspecified COPD Qualified Code(s): J44.9 - Chronic obstructive pulmonary disease, unspecified Annotation/Comment:: SVN with Duonebs,Solumedrol IV and Abx-She has no WBC,or fever but will do for exacerbation of COPD (9) Palliative care status SNOMED Code(s): 045982472 Code(s): Z51.5 - ENCOUNTER FOR PALLIATIVE CARE Status: Acute Current Visit: No (10) Pneumonia SNOMED Code(s): 536586856 Code(s): J18.9 - PNEUMONIA, UNSPECIFIED ORGANISM Status: Acute Priority: High Current Visit: No Annotation/Comment:: change to po AB. Home tomorrow if continues to improve - Problem List Review Problem List Initiated/Reviewed/Updated: Yes - Plan Plan:: Continue with Rocephin, azithromycin & Prednisone for COPD exacerbation. PT and OT are going to try to get her up again. She has been refusing to work with them. Social work has been working with family on placement. Sounds like they want to take her home. Anticipate discharge tomorrow on antibiotics and prednisone. Check DVT prophylaxis to make sure she is getting Lovenox or she is on something for DVT prophylaxis.
[2021-06-19] MEDS: Insulin Lispro 100 Unit/ML 3 ML KwikPen SUBCUT SCH ×3 (09:36→17:56)
[2021-06-19] MEDS: predniSONE 20 MG Tab PO SCH (09:37)
[2021-06-19] MEDS: Metoprolol Succinate 50 MG Tab.ER PO SCH (09:42)
[2021-06-19] MEDS: Losartan 100 MG Tab PO SCH (09:42)
[2021-06-19] MEDS: Rosuvastatin 10 MG Tab PO SCH (09:43)
[2021-06-19] MEDS: Multivitamin Tab PO SCH (09:44)
[2021-06-19] MEDS: Formoterol/Mometasone 200-5 MCG 8.8 GM Inhaler IH SCH ×2 (09:44→20:48)
[2021-06-19] MEDS: Calcium Carbonate 500 MG Tablet PO SCH ×2 (09:44→20:47)
[2021-06-19] MEDS: Clotrimazole 1% Crm 30 GM Tube TOP SCH ×2 (09:45→20:47)
[2021-06-19] MEDS: PARoxetine 20 MG Tab PO SCH (09:45)
[2021-06-19] MEDS: Methimazole 5 MG Tab PO SCH (09:47)
[2021-06-19] MEDS: Benzonatate 100 MG Cap PO SCH ×3 (09:47→20:47)
[2021-06-19] MEDS: Budesonide 0.5 MG/2 ML Neb Susp INH SCH ×2 (10:18→20:48)
[2021-06-19] MEDS: cefTRIAXone 1 GM Vial IVPUSH SCH (12:36)
[2021-06-19] MEDS: Sodium Chloride 0.9% 10 ML Syringe FLUSH PRN ×2 (12:36→21:45)
[2021-06-19] MEDS: Enoxaparin 40 MG/0.4 ML Syringe SUBCUT SCH (14:38)
[2021-06-19] MEDS: Azithromycin 500 MG in Sodium Chloride 0.9% 250 ML IV SCH (20:43)
[2021-06-19] MEDS: Latanoprost 0.005% Ophth Soln 2.5 ML Bottle EYEBOTH SCH (20:47)
[2021-06-19] MEDS: traZODone 50 MG Tab PO SCH (20:47)
[2021-06-20] MEDS: Acetaminophen 650 MG Tab.ER PO SCH ×3 (05:18→21:44)
[2021-06-20] MEDS: Pantoprazole 40 MG Tab.CR PO SCH (05:19)
[2021-06-20] MEDS: ALPRAZolam 0.5 MG Tab PO SCH ×3 (05:21→16:08)
[2021-06-20] MEDS: Albuterol/Ipratropium 3.0-0.5 MG/3 ML Neb Soln INH SCH ×4 (06:48→20:21)
--- NOTE | 2021-06-20 08:17 | PCM.PN ---
- General Info Date of Service: 06/20/21 Admission Dx/Problem (Free Text): Patient states her breathing is about the same. Occasional cough. No fevers, chills or wheezing. Asked her about depression because sounds like he needed depression screen. She says she has been depressed that she is 12 years old. She is on Paxil and Xanax regularly. She has lots of anxiety. She says she is worried about her kids and feels just a little depressed. She denies concentration problems, memory problems, suicidal thoughts and she does have some anxiety. - Patient Data Vitals - Most Recent: Last Vital Signs Temp 97.9 F 06/20/21 05:00 Pulse 80 06/20/21 06:48 Resp 16 06/20/21 05:00 BP 146/84 H 06/20/21 05:00 Pulse Ox 94 L 06/20/21 06:48 Weight - Most Recent: 192 lb 5 oz I&O - Last 24 Hours: Intake & Output 06/19/21 06/20/21 06/20/21 22:59 06:59 14:59 Intake Total 800 Balance 800 Lab Results Last 24 Hours: Laboratory Results - last 24 hr 06/19/21 06/19/21 06/20/21 Range/Units 11:37 17:52 05:30 POC Glucose 219 H 210 H 144 H (80-116) mg/dL Med Orders - Current: Current Medications Acetaminophen (Acetaminophen 650 Mg Tab.Er) 1,300 mg PO Q8H [facility] Last Admin: 06/20/21 05:18 Dose: 1,300 mg Documented by: Albuterol (Albuterol 8 Gm Inhaler) 0 gm INH Q4H PRN PRN Reason: Wheezing Albuterol/Ipratropium (Albuterol/Ipratropium 3.0-0.5 Mg/3 Ml Neb Soln) 3 ml INH QIDRT [facility] Last Admin: 06/20/21 06:48 Dose: 3 ml Documented by: Alprazolam (Alprazolam 0.5 Mg Tab) 1.5 mg PO TID@0600,1200,1700 [facility] Last Admin: 06/20/21 05:21 Dose: 1.5 mg Documented by: Artificial Tears (Hypromellose 0.3% Ophth Soln 15 Ml Bottle) 0 ml EYEBOTH DAILY PRN PRN Reason: Dry Eyes Benzonatate (Benzonatate 100 Mg Cap) 100 mg PO TID [facility] Last Admin: 06/19/21 20:47 Dose: 100 mg Documented by: Budesonide (Budesonide 0.5 Mg/2 Ml Neb Susp) 0.5 mg INH BID [facility] Last Admin: 06/19/21 20:48 Dose: 0.5 mg Documented by: Calcium Carbonate/Glycine (Calcium Carbonate 500 Mg Tablet) 500 mg PO BID [facility] Last Admin: 06/19/21 20:47 Dose: 500 mg Documented by: Ceftriaxone Sodium (Ceftriaxone 1 Gm Vial) 1 gm IVPUSH Q24H [facility] Last Admin: 06/19/21 12:36 Dose: 1 gm Documented by: Clotrimazole (Clotrimazole 1% Crm 30 Gm Tube) 0 gm TOP BID [facility] Last Admin: 06/19/21 20:47 Dose: 1 applic Documented by: Dextrose/Water (50% Dextrose In Water 50 Ml Syringe) 50 ml IVPUSH ASDIRECTED PRN PRN Reason: Hypoglycemia Enoxaparin Sodium (Enoxaparin 40 Mg/0.4 Ml Syringe) 40 mg SUBCUT Q24H [facility] Last Admin: 06/19/21 14:38 Dose: 40 mg Documented by: Fluticasone Propionate (Fluticasone Propionate Nasal [place] 16 Gm Bottle) 0 gm NASBOTH DAILY PRN PRN Reason: Congestion Furosemide (Furosemide 20 Mg Tab) 20 mg PO DAILY PRN PRN Reason: Edema Glucagon (Glucagon,Human Recombinant 1 Mg Vial) 1 mg IM ASDIRECTED PRN PRN Reason: Hypoglycemia Guaifenesin (Guaifenesin 100 Mg/5 Ml Soln 5 Ml Ud Cup) 200 mg PO Q6H PRN PRN Reason: Cough Azithromycin 500 mg/ Sodium (Chloride) 250 mls @ 250 mls/hr IV Q24H [facility] Last Admin: 06/19/21 20:43 Dose: 250 mls/hr Documented by: Insulin Human Lispro (Insulin Lispro 100 Unit/Ml 3 Ml Kwikpen) 0 unit SUBCUT TIDMEALS [facility]; Protocol Last Admin: 06/19/21 17:56 Dose: 4 unit Documented by: Latanoprost (Latanoprost 0.005% Ophth Soln 2.5 Ml Bottle) 0 ml EYEBOTH BEDTIME [facility] Last Admin: 06/19/21 20:47 Dose: 1 drop Documented by: Losartan Potassium (Losartan 100 Mg Tab) 100 mg PO DAILY [facility] Last Admin: 06/19/21 09:42 Dose: 100 mg Documented by: Methimazole (Methimazole 5 Mg Tab) 5 mg PO DAILY [facility] Last Admin: 06/19/21 09:47 Dose: 5 mg Documented by: Metoprolol Succinate (Metoprolol Succinate 50 Mg Tab.Er) 50 mg PO DAILY [facility] Last Admin: 06/19/21 09:42 Dose: 50 mg Documented by: Mometasone Furoate/Formoterol Fumar (Formoterol/Mometasone 200-5 Mcg 8.8 Gm Inhaler) 2 puff IH BID [facility] Last Admin: 06/19/21 20:48 Dose: 2 puff Documented by: Multivitamins/Minerals/Vitamin C (Multivitamin Tab) 1 tab PO DAILY [facility] Last Admin: 06/19/21 09:44 Dose: 1 tab Documented by: Ondansetron HCl (Ondansetron 4 Mg/2 Ml Sdv) 4 mg IVPUSH Q4H PRN PRN Reason: Nausea/Vomiting Last Admin: 06/17/21 04:48 Dose: 4 mg Documented by: Pantoprazole Sodium (Pantoprazole 40 Mg Tab.Cr) 40 mg PO DAILY@0600 [facility] Last Admin: 06/20/21 05:19 Dose: 40 mg Documented by: Paroxetine HCl (Paroxetine 20 Mg Tab) 40 mg PO DAILY [facility] Last Admin: 06/19/21 09:45 Dose: 40 mg Documented by: Polyethylene Glycol (Polyethylene Glycol 3350 Powder 17 Gm Packet) 17 gm PO DAILY PRN PRN Reason: Constipation Prednisone (Prednisone 20 Mg Tab) 20 mg PO WITHBREAKFAST [facility] Stop: 06/21/21 08:01 Last Admin: 06/19/21 09:37 Dose: 20 mg Documented by: Rosuvastatin Calcium (Rosuvastatin 10 Mg Tab) 10 mg PO DAILY [facility] Last Admin: 06/19/21 09:43 Dose: 10 mg Documented by: Senna/Docusate Sodium (Docusate Sodium/Sennosides 50-8.6 Mg Tab) 1 tab PO BID PRN PRN Reason: Constipation Sodium Chloride (Sodium Chloride 0.9% 10 Ml Syringe) 10 ml FLUSH ASDIRECTED PRN PRN Reason: Keep Vein Open Last Admin: 06/19/21 21:45 Dose: 10 ml Documented by: Trazodone HCl (Trazodone 50 Mg Tab) 150 mg PO BEDTIME [facility] Last Admin: 06/19/21 20:47 Dose: 150 mg Documented by: Discontinued Medications (Fluticasone/Salmeterol [Advair 250-50] *Ptom 1 puff INH BID [facility] Last Admin: 06/17/21 09:01 Dose: 1 puff Documented by: (Omeprazole [ Omeprazole] 20 Mg Capsule.) *Ptom 20 mg PO DAILY [facility] Last Admin: 06/17/21 09:04 Dose: 20 mg Documented by: (Paroxetine [Paxil] (40 Mg Tablet) *Ptom) 40 mg PO DAILY [facility] Last Admin: 06/17/21 09:01 Dose: 40 mg Documented by: Trazodone HCl (Trazodone 100 Mg Tab *Ptom) 150 mg PO BEDTIME [facility] Last Admin: 06/16/21 21:37 Dose: 150 mg Documented by: - Exam General: Alert, Oriented, Cooperative Neck: Supple Lungs: Clear to Auscultation, Normal Respiratory Effort Cardiovascular: Regular Rate, Regular Rhythm Extremities: No Pedal Edema Psy/Mental Status: Alert, Normal Affect, Normal Mood. No: Labile Mood, Anxious, Depressed, Agitated, Suicidal Ideation, Homicidal Ideation, Hallucinations, Withdrawal Symptoms - Patient Data Lab Results Last 24 hrs: Laboratory Results - last 24 hr 06/19/21 06/19/21 06/20/21 Range/Units 11:37 17:52 05:30 POC Glucose 219 H 210 H 144 H (80-116) mg/dL Result Diagrams: 06/17/21 06:02 06/17/21 06:02 Sepsis Event Note - Evaluation Sepsis Screening Result: No Definite Risk - Focused Exam Vital Signs: Vital Signs Temp Pulse Resp BP Pulse Ox Pulse Ox 06/20/21 06:48 80 94 L 06/20/21 05:00 97.9 F 80 16 146/84 H 94 L 06/20/21 00:30 95 06/20/21 00:00 98.1 F 78 18 110/67 95 06/19/21 20:48 84 94 L 06/19/21 20:30 98 F 80 18 136/83 94 L - Problem List & Annotations (1) Altered mental status SNOMED Code(s): 482136094 Code(s): R41.82 - ALTERED MENTAL STATUS, UNSPECIFIED Status: Acute Current Visit: Yes Qualifiers: Altered mental status type: delirium Qualified Code(s): R41.0 - Disorie ntation, unspecified (2) CAP (community acquired pneumonia) SNOMED Code(s): 048289911 Code(s): J18.9 - PNEUMONIA, UNSPECIFIED ORGANISM Status: Acute Current Visit: Yes (3) Chronic radicular low back pain SNOMED Code(s): 15112418, 67513985 Code(s): M54.16 - RADICULOPATHY, LUMBAR REGION; G89.29 - OTHER CHRONIC PAIN Status: Acute Current Visit: Yes (4) Encephalopathy SNOMED Code(s): 74142467 Code(s): G93.40 - ENCEPHALOPATHY, UNSPECIFIED Status: Acute Current Visit: Yes (5) Obesity SNOMED Code(s): 504693425, 975963064 Code(s): E66.9 - OBESITY, UNSPECIFIED Status: Acute Current Visit: Yes (6) UTI (urinary tract infection) SNOMED Code(s): 25273670 Code(s): N39.0 - URINARY TRACT INFECTION, SITE NOT SPECIFIED Status: Acute Current Visit: Yes (7) MDD (major depressive disorder) SNOMED Code(s): 336993267 Code(s): F32.9 - MAJOR DEPRESSIVE DISORDER, SINGLE EPISODE, UNSPECIFIED Status: Chronic Current Visit: Yes Qualifiers: Major depression recurrence: recurrent (8) COPD (chronic obstructive pulmonary disease) SNOMED Code(s): 40415715 Code(s): J44.9 - CHRONIC OBSTRUCTIVE PULMONARY DISEASE, UNSPECIFIED Status: Acute Current Visit: No Qualifiers: COPD type: unspecified COPD Qualified Code(s): J44.9 - Chronic obstructive pulmonary disease, unspecified Annotation/Comment:: SVN with Duonebs,Solumedrol IV and Abx-She has no WBC,or fever but will do for exacerbation of COPD (9) Palliative care status SNOMED Code(s): 835540601 Code(s): Z51.5 - ENCOUNTER FOR PALLIATIVE CARE Status: Acute Current Visi t: No (10) Pneumonia SNOMED Code(s): 834787628 Code(s): J18.9 - PNEUMONIA, UNSPECIFIED ORGANISM Status: Acute Priority: High Current Visit: No Annotation/Comment:: change to po AB. Home tomorrow if continues to improve (11) Depression with anxiety SNOMED Code(s): 797829563 Code(s): F41.8 - OTHER SPECIFIED ANXIETY DISORDERS Status: Acute Current Visit: No (12) Depression SNOMED Code(s): 21371002 Code(s): F32.A - DEPRESSION, UNSPECIFIED Status: Acute Current Visit: Yes Qualifiers: Depression Type: unspecified Qualified Code(s): F32.A - Depression, unspecified - Problem List Review Problem List Initiated/Reviewed/Updated: Yes - My Orders Last 24 Hours: My Active Orders 06/22/21 05:00 CORONAVIRUS COVID-19 [facility]HAEL [[facility]] Routine - Plan Plan:: 1. Depression and anxiety is mild and controlled on Paxil and Xanax. 2. Stop Rocephin and IV Zithromax and change to Augmentin and p.o. Zithromax. 3. Sounds like she will be transferred [facility] [place] from now. 4. Continue her current cares.
[2021-06-20] MEDS: Insulin Lispro 100 Unit/ML 3 ML KwikPen SUBCUT SCH ×3 (08:26→17:40)
[2021-06-20] MEDS: predniSONE 20 MG Tab PO SCH (08:28)
[2021-06-20] MEDS: Losartan 100 MG Tab PO SCH (08:34)
[2021-06-20] MEDS: Formoterol/Mometasone 200-5 MCG 8.8 GM Inhaler IH SCH ×2 (08:34→20:20)
[2021-06-20] MEDS: Rosuvastatin 10 MG Tab PO SCH (08:34)
[2021-06-20] MEDS: Clotrimazole 1% Crm 30 GM Tube TOP SCH ×2 (08:35→20:20)
[2021-06-20] MEDS: Metoprolol Succinate 50 MG Tab.ER PO SCH (08:36)
[2021-06-20] MEDS: Calcium Carbonate 500 MG Tablet PO SCH ×2 (08:37→20:21)
[2021-06-20] MEDS: Methimazole 5 MG Tab PO SCH (08:37)
[2021-06-20] MEDS: PARoxetine 20 MG Tab PO SCH (08:37)
[2021-06-20] MEDS: Multivitamin Tab PO SCH (08:38)
[2021-06-20] MEDS: Benzonatate 100 MG Cap PO SCH ×3 (08:39→20:21)
[2021-06-20] MEDS: Budesonide 0.5 MG/2 ML Neb Susp INH SCH ×2 (08:40→20:21)
[2021-06-20] MEDS: Azithromycin 250 MG Tab PO SCH (09:52)
[2021-06-20] MEDS: Amoxicillin/Clavulanate K 875-125 MG Tab PO SCH ×2 (09:52→20:21)
[2021-06-20] MEDS: Enoxaparin 40 MG/0.4 ML Syringe SUBCUT SCH (13:53)
[2021-06-20] MEDS: Latanoprost 0.005% Ophth Soln 2.5 ML Bottle EYEBOTH SCH (20:20)
[2021-06-20] MEDS: traZODone 50 MG Tab PO SCH (20:21)
[2021-06-21] MEDS: Acetaminophen 650 MG Tab.ER PO SCH ×3 (06:11→21:02)
[2021-06-21] MEDS: Albuterol/Ipratropium 3.0-0.5 MG/3 ML Neb Soln INH SCH ×4 (06:11→20:52)
[2021-06-21] MEDS: ALPRAZolam 0.5 MG Tab PO SCH ×3 (06:11→17:02)
[2021-06-21] MEDS: Pantoprazole 40 MG Tab.CR PO SCH (06:11)
--- NOTE | 2021-06-21 07:47 | PCM.PN ---
- General Info Date of Service: 06/21/21 Admission Dx/Problem (Free Text): Patient without concerns. She denies fevers, chills, cough, depression, anxiety today. - Patient Data Vitals - Most Recent: Last Vital Signs Temp 97.7 F 06/21/21 06:00 Pulse 85 06/21/21 06:00 Resp 20 06/21/21 06:00 BP 159/86 H 06/21/21 06:00 Pulse Ox 92 L 06/21/21 06:11 Weight - Most Recent: 192 lb 5 oz I&O - Last 24 Hours: Intake & Output 06/20/21 06/21/21 06/21/21 22:59 06:59 14:59 Intake Total 500 Balance 500 Lab Results Last 24 Hours: Laboratory Results - last 24 hr 06/20/21 06/20/21 06/21/21 Range/Units 11:25 17:33 06:12 POC Glucose 264 H D 237 H 147 H D (80-116) mg/dL Med Orders - Current: Current Medications Acetaminophen (Acetaminophen 650 Mg Tab.Er) 1,300 mg PO Q8H [facility] Last Admin: 06/21/21 06:11 Dose: 1,300 mg Documented by: Albuterol (Albuterol 8 Gm Inhaler) 0 gm INH Q4H PRN PRN Reason: Wheezing Albuterol/Ipratropium (Albuterol/Ipratropium 3.0-0.5 Mg/3 Ml Neb Soln) 3 ml INH QIDRT [facility] Last Admin: 06/21/21 06:11 Dose: 3 ml Documented by: Alprazolam (Alprazolam 0.5 Mg Tab) 1.5 mg PO TID@0600,1200,1700 [facility] Last Admin: 06/21/21 06:11 Dose: 1.5 mg Documented by: Amoxicillin/Clavulanate Potassium (Amoxicillin/Clavulanate K 875-125 Mg Tab) 1 tab PO BID [facility] Stop: 06/26/21 21:01 Last Admin: 06/20/21 20:21 Dose: 1 tab Documented by: Artificial Tears (Hypromellose 0.3% Ophth Soln 15 Ml Bottle) 0 ml EYEBOTH DAILY PRN PRN Reason: Dry Eyes Azithromycin (Azithromycin 250 Mg Tab) 250 mg PO DAILY [facility] Stop: 06/21/21 09:01 Last Admin: 06/20/21 09:52 Dose: 250 mg Documented by: Benzonatate (Benzonatate 100 Mg Cap) 100 mg PO TID [facility] Last Admin: 06/20/21 20:21 Dose: 100 mg Documented by: Budesonide (Budesonide 0.5 Mg/2 Ml Neb Susp) 0.5 mg INH BID [facility] Last Admin: 06/20/21 20:21 Dose: 0.5 mg Documented by: Calcium Carbonate/Glycine (Calcium Carbonate 500 Mg Tablet) 500 mg PO BID [facility] Last Admin: 06/20/21 20:21 Dose: 500 mg Documented by: Clotrimazole (Clotrimazole 1% Crm 30 Gm Tube) 0 gm TOP BID [facility] Last Admin: 06/20/21 20:20 Dose: 1 applic Documented by: Dextrose/Water (50% Dextrose In Water 50 Ml Syringe) 50 ml IVPUSH ASDIRECTED PRN PRN Reason: Hypoglycemia Enoxaparin Sodium (Enoxaparin 40 Mg/0.4 Ml Syringe) 40 mg SUBCUT Q24H [facility] Last Admin: 06/20/21 13:53 Dose: 40 mg Documented by: Fluticasone Propionate (Fluticasone Propionate Nasal [place] 16 Gm Bottle) 0 gm NASBOTH DAILY PRN PRN Reason: Congestion Furosemide (Furosemide 20 Mg Tab) 20 mg PO DAILY PRN PRN Reason: Edema Glucagon (Glucagon,Human Recombinant 1 Mg Vial) 1 mg IM ASDIRECTED PRN PRN Reason: Hypoglycemia Guaifenesin (Guaifenesin 100 Mg/5 Ml Soln 5 Ml Ud Cup) 200 mg PO Q6H PRN PRN Reason: Cough Insulin Human Lispro (Insulin Lispro 100 Unit/Ml 3 Ml Kwikpen) 0 unit SUBCUT TIDMEALS [facility]; Protocol Last Admin: 06/20/21 17:40 Dose: 4 unit Documented by: Latanoprost (Latanoprost 0.005% Ophth Soln 2.5 Ml Bottle) 0 ml EYEBOTH BEDTIME [facility] Last Admin: 06/20/21 20:20 Dose: 1 drop Documented by: Losartan Potassium (Losartan 100 Mg Tab) 100 mg PO DAILY [facility] Last Admin: 06/20/21 08:34 Dose: 100 mg Documented by: Methimazole (Methimazole 5 Mg Tab) 5 mg PO DAILY [facility] Last Admin: 06/20/21 08:37 Dose: 5 mg Documented by: Metoprolol Succinate (Metoprolol Succinate 50 Mg Tab.Er) 50 mg PO DAILY [facility] Last Admin: 06/20/21 08:36 Dose: 50 mg Documented by: Mometasone Furoate/Formoterol Fumar (Formoterol/Mometasone 200-5 Mcg 8.8 Gm Inhaler) 2 puff IH BID [facility] Last Admin: 06/20/21 20:20 Dose: 2 puff Documented by: Multivitamins/Minerals/Vitamin C (Multivitamin Tab) 1 tab PO DAILY [facility] Last Admin: 06/20/21 08:38 Dose: 1 tab Documented by: Ondansetron HCl (Ondansetron 4 Mg/2 Ml Sdv) 4 mg IVPUSH Q4H PRN PRN Reason: Nausea/Vomiting Last Admin: 06/17/21 04:48 Dose: 4 mg Documented by: Pantoprazole Sodium (Pantoprazole 40 Mg Tab.Cr) 40 mg PO DAILY@0600 [facility] Last Admin: 06/21/21 06:11 Dose: 40 mg Documented by: Paroxetine HCl (Paroxetine 20 Mg Tab) 40 mg PO DAILY [facility] Last Admin: 06/20/21 08:37 Dose: 40 mg Documented by: Polyethylene Glycol (Polyethylene Glycol 3350 Powder 17 Gm Packet) 17 gm PO DAILY PRN PRN Reason: Constipation Prednisone (Prednisone 20 Mg Tab) 20 mg PO WITHBREAKFAST [facility] Stop: 06/21/21 08:01 Last Admin: 06/20/21 08:28 Dose: 20 mg Documented by: Rosuvastatin Calcium (Rosuvastatin 10 Mg Tab) 10 mg PO DAILY [facility] Last Admin: 06/20/21 08:34 Dose: 10 mg Documented by: Senna/Docusate Sodium (Docusate Sodium/Sennosides 50-8.6 Mg Tab) 1 tab PO BID PRN PRN Reason: Constipation Sodium Chloride (Sodium Chloride 0.9% 10 Ml Syringe) 10 ml FLUSH ASDIRECTED PRN PRN Reason: Keep Vein Open Last Admin: 06/19/21 21:45 Dose: 10 ml Documented by: Trazodone HCl (Trazodone 50 Mg Tab) 150 mg PO BEDTIME [facility] Last Admin: 06/20/21 20:21 Dose: 150 mg Documented by: Discontinued Medications Ceftriaxone Sodium (Ceftriaxone 1 Gm Vial) 1 gm IVPUSH Q24H [facility] Last Admin: 06/19/21 12:36 Dose: 1 gm Documented by: Azithromycin 500 mg/ Sodium (Chloride) 250 mls @ 250 mls/hr IV Q24H [facility] Last Admin: 06/19/21 20:43 Dose: 250 mls/hr Documented by: (Fluticasone/Salmeterol [Advair 250-50] *Ptom 1 puff INH BID [facility] Last Admin: 06/17/21 09:01 Dose: 1 puff Documented by: (Omeprazole [ Omeprazole] 20 Mg Capsule.) *Ptom 20 mg PO DAILY [facility] Last Admin: 06/17/21 09:04 Dose: 20 mg Documented by: (Paroxetine [Paxil] (40 Mg Tablet) *Ptom) 40 mg PO DAILY [facility] Last Admin: 06/17/21 09:01 Dose: 40 mg Documented by: Trazodone HCl (Trazodone 100 Mg Tab *Ptom) 150 mg PO BEDTIME [facility] Last Admin: 06/16/21 21:37 Dose: 150 mg Documented by: - Exam General: Alert, Oriented, Cooperative Neck: Supple Lungs: Clear to Auscultation, Normal Respiratory Effort. No: Crackles, Rales Cardiovascular: Regular Rate, Regular Rhythm, No Murmurs Extremities: No Pedal Edema - Patient Data Lab Results Last 24 hrs: Laboratory Results - last 24 hr 06/20/21 06/20/21 06/21/21 Range/Units 11:25 17:33 06:12 POC Glucose 264 H D 237 H 147 H D (80-116) mg/dL Result Diagrams: 06/17/21 06:02 06/17/21 06:02 Sepsis Event Note - Evaluation Sepsis Screening Result: No Definite Risk - Focused Exam Vital Signs: Vital Signs Temp Pulse Resp BP Pulse Ox Pulse Ox 06/21/21 06:11 92 L 06/21/21 06:00 97.7 F 85 20 159/86 H 92 L 92 L 06/20/21 20:21 77 95 06/20/21 20:00 97.9 F 76 18 128/71 95 - Problem List & Annotations (1) Altered mental status SNOMED Code(s): 769617631 Code(s): R41.82 - ALTERED MENTAL STATUS, UNSPECIFIED Status: Acute Current Visit: Yes Qualifiers: Altered mental status type: delirium Qualified Code(s): R41.0 - Disorientation, unspecified (2) CAP (community acquired pneumonia) SNOMED Code(s): 541946403 Code(s): J18.9 - PNEUMONIA, UNSPECIFIED ORGANISM Status: Acute Current Visit: Yes (3) Chronic radicular low back pain SNOMED Code(s): 69914744, 59387856 Code(s): M54.16 - RADICULOPATHY, LUMBAR REGION; G89.29 - OTHER CHRONIC PAIN Status: Acute Current Visit: Yes (4) Encephalopathy SNOMED Code(s): 87521745 Code(s): G93.40 - ENCEPHALOPATHY, UNSPECIFIED Status: Acute Current Visit: Yes (5) Obesity SNOMED Code(s): 615991649, 910918961 Code(s): E66.9 - OBESITY, UNSPECIFIED Status: Acute Current Visit: Yes (6) UTI (urinary tract infection) SNOMED Code(s): 63675995 Code(s): N39.0 - URINARY TRACT INFECTION, SITE NOT SPECIFIED Status: Acute Current Visit: Yes (7) MDD (major depressive disorder) SNOMED Code(s): 739390102 Code(s): F32.9 - MAJOR DEPRESSIVE DISORDER, SINGLE EPISODE, UNSPECIFIED Status: Chronic Current Visit: Yes Qualifiers: Major depression recurrence: recurrent (8) COPD (chronic obstructive pulmonary disease) SNOMED Code(s): 54907607 Code(s): J44.9 - CHRONIC OBSTRUCTIVE PULMONARY DISEASE, UNSPECIFIED Status: Acute Current Visit: No Qualifiers: COPD type: unspecified COPD Qualified Code(s): J44.9 - Chronic obstructive pulmonary disease, unspecified Annotation/Comment:: SVN with Duonebs,Solumedrol IV and Abx-She has no WBC,or fever but will do for exacerbation of COPD (9) Palliative care status SNOMED Code(s): 112455744 Code(s): Z51.5 - ENCOUNTER FOR PALLIATIVE CARE Status: Acute Current Visit: No (10) Pneumonia SNOMED Code(s): 534265205 Code(s): J18.9 - PNEUMONIA, UNSPECIFIED ORGANISM Status: Acute Priority: High Current Visit: No Annotation/Comment:: change to po AB. Home tomorrow if continues to improve (11) Depression with anxiety SNOMED Code(s): 894872292 Code(s): F41.8 - OTHER SPECIFIED ANXIETY DISORDERS Status: Acute Current Visit: No (12) Depression SNOMED Code(s): 84954856 Code(s): F32.A - DEPRESSION, UNSPECIFIED Status: Acute Current Visit: Yes Qualifiers: Depression Type: unspecified Qualified Code(s): F32.A - Depression, unspecified - Problem List Review Problem List Initiated/Reviewed/Updated: Yes - My Orders Last 24 Hours: My Active Orders 06/20/21 09:00 Amoxicillin/Clavulanate K [Augmentin 875 MG/125 MG] 1 tab PO BID Azithromycin [Zithromax] 250 mg PO DAILY 06/22/21 05:00 CORONAVIRUS COVID-19 MICHAEL [[facility]] Routine - Plan Plan:: 1. Continue current care 2. Patient's and family decided to place her long-term. Waiting for placement. Anticipate discharge in the next couple of days. 3. In the future we will get rid of her prednisone but not today.
[2021-06-21] MEDS: Insulin Lispro 100 Unit/ML 3 ML KwikPen SUBCUT SCH ×3 (08:53→17:45)
[2021-06-21] MEDS: Calcium Carbonate 500 MG Tablet PO SCH ×2 (08:54→20:54)
[2021-06-21] MEDS: predniSONE 20 MG Tab PO SCH (08:54)
[2021-06-21] MEDS: Methimazole 5 MG Tab PO SCH (08:55)
[2021-06-21] MEDS: PARoxetine 20 MG Tab PO SCH (08:55)
[2021-06-21] MEDS: Multivitamin Tab PO SCH (08:55)
[2021-06-21] MEDS: Benzonatate 100 MG Cap PO SCH ×3 (08:55→20:55)
[2021-06-21] MEDS: Formoterol/Mometasone 200-5 MCG 8.8 GM Inhaler IH SCH ×2 (08:56→20:52)
[2021-06-21] MEDS: Losartan 100 MG Tab PO SCH (08:56)
[2021-06-21] MEDS: Rosuvastatin 10 MG Tab PO SCH (08:57)
[2021-06-21] MEDS: Clotrimazole 1% Crm 30 GM Tube TOP SCH ×2 (08:58→20:53)
[2021-06-21] MEDS: Budesonide 0.5 MG/2 ML Neb Susp INH SCH ×2 (08:59→20:54)
[2021-06-21] MEDS: Metoprolol Succinate 50 MG Tab.ER PO SCH (08:59)
[2021-06-21] MEDS: Amoxicillin/Clavulanate K 875-125 MG Tab PO SCH ×2 (09:03→21:01)
[2021-06-21] MEDS: Azithromycin 250 MG Tab PO SCH (09:04)
[2021-06-21] MEDS ORDERED: Insulin Lispro 100 Unit/ML 3 ML KwikPen SUBCUT ONE (12:04)
[2021-06-21] MEDS: Enoxaparin 40 MG/0.4 ML Syringe SUBCUT SCH (13:52)
[2021-06-21] MEDS: traZODone 50 MG Tab PO SCH (20:55)
[2021-06-21] MEDS: Latanoprost 0.005% Ophth Soln 2.5 ML Bottle EYEBOTH SCH (20:56)
[2021-06-22] MEDS: Acetaminophen 650 MG Tab.ER PO SCH (06:42)
[2021-06-22] MEDS: ALPRAZolam 0.5 MG Tab PO SCH (06:43)
[2021-06-22] MEDS: Pantoprazole 40 MG Tab.CR PO SCH (06:43)
[2021-06-22] MEDS: Albuterol/Ipratropium 3.0-0.5 MG/3 ML Neb Soln INH SCH (06:44)
--- NOTE | 2021-06-22 07:43 | PCM.PN ---
- General Info Date of Service: 06/22/21 Admission Dx/Problem (Free Text): Patient has no concerns today. She denies fevers, chills, cough, shortness of breath. - Patient Data Vitals - Most Recent: Last Vital Signs Temp 98.6 F 06/22/21 05:30 Pulse 80 06/22/21 05:30 Resp 20 06/22/21 05:30 BP 119/69 06/22/21 05:30 Pulse Ox 94 L 06/22/21 05:30 Weight - Most Recent: 192 lb 5 oz Lab Results Last 24 Hours: Laboratory Results - last 24 hr 06/21/21 06/21/21 06/22/21 Range/Units 11:21 17:39 05:10 POC Glucose 212 H 302 H D (80-116) mg/dL SARS-CoV-2 RNA (MICHAEL) Negative (NEGATIVE) Med Orders - Current: Current Medications Acetaminophen (Acetaminophen 650 Mg Tab.Er) 1,300 mg PO Q8H [facility] Last Admin: 06/22/21 06:42 Dose: 1,300 mg Documented by: Albuterol (Albuterol 8 Gm Inhaler) 0 gm INH Q4H PRN PRN Reason: Wheezing Albuterol/Ipratropium (Albuterol/Ipratropium 3.0-0.5 Mg/3 Ml Neb Soln) 3 ml INH QIDRT [facility] Last Admin: 06/22/21 06:44 Dose: 3 ml Documented by: Alprazolam (Alprazolam 0.5 Mg Tab) 1.5 mg PO TID@0600,1200,1700 [facility] Last Admin: 06/22/21 06:43 Dose: 1.5 mg Documented by: Amoxicillin/Clavulanate Potassium (Amoxicillin/Clavulanate K 875-125 Mg Tab) 1 tab PO BID [facility] Stop: 06/26/21 21:01 Last Admin: 06/21/21 21:01 Dose: 1 tab Documented by: Artificial Tears (Hypromellose 0.3% Ophth Soln 15 Ml Bottle) 0 ml EYEBOTH DAILY PRN PRN Reason: Dry Eyes Benzonatate (Benzonatate 100 Mg Cap) 100 mg PO TID [facility] Last Admin: 06/21/21 20:55 Dose: 100 mg Documented by: Budesonide (Budesonide 0.5 Mg/2 Ml Neb Susp) 0.5 mg INH BID [facility] Last Admin: 06/21/21 20:54 Dose: 0.5 mg Documented by: Calcium Carbonate/Glycine (Calcium Carbonate 500 Mg Tablet) 500 mg PO BID [facility] Last Admin: 06/21/21 20:54 Dose: 500 mg Documented by: Clotrimazole (Clotrimazole 1% Crm 30 Gm Tube) 0 gm TOP BID [facility] Last Admin: 06/21/21 20:53 Dose: 1 applic Documented by: Dextrose/Water (50% Dextrose In Water 50 Ml Syringe) 50 ml IVPUSH ASDIRECTED PRN PRN Reason: Hypoglycemia Enoxaparin Sodium (Enoxaparin 40 Mg/0.4 Ml Syringe) 40 mg SUBCUT Q24H [facility] Last Admin: 06/21/21 13:52 Dose: 40 mg Documented by: Fluticasone Propionate (Fluticasone Propionate Nasal [place] 16 Gm Bottle) 0 gm NASBOTH DAILY PRN PRN Reason: Congestion Furosemide (Furosemide 20 Mg Tab) 20 mg PO DAILY PRN PRN Reason: Edema Glucagon (Glucagon,Human Recombinant 1 Mg Vial) 1 mg IM ASDIRECTED PRN PRN Reason: Hypoglycemia Guaifenesin (Guaifenesin 100 Mg/5 Ml Soln 5 Ml Ud Cup) 200 mg PO Q6H PRN PRN Reason: Cough Insulin Human Lispro (Insulin Lispro 100 Unit/Ml 3 Ml Kwikpen) 0 unit SUBCUT TIDMEALS [facility]; Protocol Last Admin: 06/21/21 17:45 Dose: 8 unit Documented by: Latanoprost (Latanoprost 0.005% Ophth Soln 2.5 Ml Bottle) 0 ml EYEBOTH BEDTIME [facility] Last Admin: 06/21/21 20:56 Dose: 1 drop Documented by: Losartan Potassium (Losartan 100 Mg Tab) 100 mg PO DAILY [facility] Last Admin: 06/21/21 08:56 Dose: 100 mg Documented by: Methimazole (Methimazole 5 Mg Tab) 5 mg PO DAILY [facility] Last Admin: 06/21/21 08:55 Dose: 5 mg Documented by: Metoprolol Succinate (Metoprolol Succinate 50 Mg Tab.Er) 50 mg PO DAILY [facility] Last Admin: 06/21/21 08:59 Dose: 50 mg Documented by: Mometasone Furoate/Formoterol Fumar (Formoterol/Mometasone 200-5 Mcg 8.8 Gm Inhaler) 2 puff IH BID [facility] Last Admin: 06/21/21 20:52 Dose: 2 puff Documented by: Multivitamins/Minerals/Vitamin C (Multivitamin Tab) 1 tab PO DAILY [facility] Last Admin: 06/21/21 08:55 Dose: 1 tab Documented by: Ondansetron HCl (Ondansetron 4 Mg/2 Ml Sdv) 4 mg IVPUSH Q4H PRN PRN Reason: Nausea/Vomiting Last Admin: 06/17/21 04:48 Dose: 4 mg Documented by: Pantoprazole Sodium (Pantoprazole 40 Mg Tab.Cr) 40 mg PO DAILY@0600 [facility] Last Admin: 06/22/21 06:43 Dose: 40 mg Documented by: Paroxetine HCl (Paroxetine 20 Mg Tab) 40 mg PO DAILY [facility] Last Admin: 06/21/21 08:55 Dose: 40 mg Documented by: Polyethylene Glycol (Polyethylene Glycol 3350 Powder 17 Gm Packet) 17 gm PO DA ASHLEY PRN PRN Reason: Constipation Rosuvastatin Calcium (Rosuvastatin 10 Mg Tab) 10 mg PO DAILY [facility] Last Admin: 06/21/21 08:57 Dose: 10 mg Documented by: Senna/Docusate Sodium (Docusate Sodium/Sennosides 50-8.6 Mg Tab) 1 tab PO BID PRN PRN Reason: Constipation Sodium Chloride (Sodium Chloride 0.9% 10 Ml Syringe) 10 ml FLUSH ASDIRECTED PRN PRN Reason: Keep Vein Open Last Admin: 06/19/21 21:45 Dose: 10 ml Documented by: Trazodone HCl (Trazodone 50 Mg Tab) 150 mg PO BEDTIME [facility] Last Admin: 06/21/21 20:55 Dose: 150 mg Documented by: Discontinued Medications Azithromycin (Azithromycin 250 Mg Tab) 250 mg PO DAILY [facility] Stop: 06/21/21 09:01 Last Admin: 06/21/21 09:04 Dose: 250 mg Documented by: Ceftriaxone Sodium (Ceftriaxone 1 Gm Vial) 1 gm IVPUSH Q24H [facility] Last Admin: 06/19/21 12:36 Dose: 1 gm Documented by: Azithromycin 500 mg/ Sodium (Chloride) 250 mls @ 250 mls/hr IV Q24H [facility] Last Admin: 06/19/21 20:43 Dose: 250 mls/hr Documented by: (Fluticasone/Salmeterol [Advair 250-50] *Ptom 1 puff INH BID [facility] Last Admin: 06/17/21 09:01 Dose: 1 puff Documented by: (Omeprazole [ Omeprazole] 20 Mg Capsule.) *Ptom 20 mg PO DAILY [facility] Last Admin: 06/17/21 09:04 Dose: 20 mg Documented by: (Paroxetine [Paxil] (40 Mg Tablet) *Ptom) 40 mg PO DAILY [facility] Last Admin: 06/17/21 09:01 Dose: 40 mg Documented by: Prednisone (Prednisone 20 Mg Tab) 20 mg PO WITHBREAKFAST [facility] Stop: 06/21/21 08:01 Last Admin: 06/21/21 08:54 Dose: 20 mg Documented by: Trazodone HCl (Trazodone 100 Mg Tab *Ptom) 150 mg PO BEDTIME [facility] Last Admin: 06/16/21 21:37 Dose: 150 mg Documented by: - Exam General: Alert, Oriented, Cooperative Neck: Supple Lungs: Clear to Auscultation, Normal Respiratory Effort Cardiovascular: Regular Rate, No Murmurs - Patient Data Lab Results Last 24 hrs: Laboratory Results - last 24 hr 06/21/21 06/21/21 06/22/21 Range/Units 11:21 17:39 05:10 POC Glucose 212 H 302 H D (80-116) mg/dL SARS-CoV-2 RNA (MICHAEL) Negative (NEGATIVE) Result Diagrams: 06/17/21 06:02 06/17/21 06:02 Sepsis Event Note - Evaluation Sepsis Screening Result: No Definite Risk - Focused Exam Vital Signs: Vital Signs Temp Pulse Resp BP Pulse Ox 06/22/21 05:30 98.6 F 80 20 119/69 94 L 06/22/21 00:00 18 06/21/21 22:00 98.5 F 77 20 129/71 94 L - Problem List & Annotations (1) Altered mental status SNOMED Code(s): 655177636 Code(s): R41.82 - ALTERED MENTAL STATUS, UNSPECIFIED Status: Acute Current Visit: Yes Qualifiers: Altered mental status type: delirium Qualified Code(s): R41.0 - Disorientation, unspecified (2) CAP (community acquired pneumonia) SNOMED Code(s): 472067043 Code(s): J18.9 - PNEUMONIA, UNSPECIFIED ORGANISM Status: Acute Current Visit: Yes (3) Chronic radicular low back pain SNOMED Code(s): 90690679, 13205858 Code(s): M54.16 - RADICULOPATHY, LUMBAR REGION; G89.29 - OTHER CHRONIC PAIN Status: Acute Current Visit: Yes (4) Encephalopathy SNOMED Code(s): 88123322 Code(s): G93.40 - ENCEPHALOPATHY, UNSPECIFIED Status: Acute Current Vi sit: Yes (5) Obesity SNOMED Code(s): 449084736, 631774426 Code(s): E66.9 - OBESITY, UNSPECIFIED Status: Acute Current Visit: Yes (6) UTI (urinary tract infection) SNOMED Code(s): 24077682 Code(s): N39.0 - URINARY TRACT INFECTION, SITE NOT SPECIFIED Status: Acute Current Visit: Yes (7) MDD (major depressive disorder) SNOMED Code(s): 717399850 Code(s): F32.9 - MAJOR DEPRESSIVE DISORDER, SINGLE EPISODE, UNSPECIFIED Status: Chronic Current Visit: Yes Qualifiers: Major depression recurrence: recurrent (8) COPD (chronic obstructive pulmonary disease) SNOMED Code(s): 33932507 Code(s): J44.9 - CHRONIC OBSTRUCTIVE PULMONARY DISEASE, UNSPECIFIED Status: Acute Current Visit: No Qualifiers: COPD type: unspecified COPD Qualified Code(s): J44.9 - Chronic obstructive pulmonary disease, unspecified Annotation/Comment:: SVN with Duonebs,Solumedrol IV and Abx-She has no WBC,or fever but will do for exacerbation of COPD (9) Palliative care status SNOMED Code(s): 010474839 Code(s): Z51.5 - ENCOUNTER FOR PALLIATIVE CARE Status: Acute Current Visit: No (10) Pneumonia SNOMED Code(s): 168631757 Code(s): J18.9 - PNEUMONIA, UNSPECIFIED ORGANISM Status: Acute Priority: High Current Visit: No Annotation/Comment:: change to po AB. Home tomorrow if continues to improve (11) Depression with anxiety SNOMED Code(s): 041261009 Code(s): F41.8 - OTHER SPECIFIED ANXIETY DISORDERS Status: Acute Current Visit: No (12) Depression SNOMED Code(s): 00716154 Code(s): F32.A - DEPRESSION, UNSPECIFIED Status: Acute Current Visit: Yes Qualifiers: Depression Type: unspecified Qualified Code(s): F32.A - Depression, unspecified - Problem List Review Problem List Initiated/Reviewed/Updated: Yes - Plan Plan:: 1. Continue current care 2. Patient's and family [facility]. Social work collaborating with prison to see when we can transfer her.
[2021-06-22] MEDS: Losartan 100 MG Tab PO SCH (09:02)
[2021-06-22] MEDS: Rosuvastatin 10 MG Tab PO SCH (09:02)
[2021-06-22] MEDS: Insulin Lispro 100 Unit/ML 3 ML KwikPen SUBCUT SCH (09:02)
[2021-06-22] MEDS: Amoxicillin/Clavulanate K 875-125 MG Tab PO SCH (09:02)
[2021-06-22] MEDS: Formoterol/Mometasone 200-5 MCG 8.8 GM Inhaler IH SCH (09:02)
[2021-06-22] MEDS: Methimazole 5 MG Tab PO SCH (09:03)
[2021-06-22] MEDS: Clotrimazole 1% Crm 30 GM Tube TOP SCH (09:03)
[2021-06-22] MEDS: Metoprolol Succinate 50 MG Tab.ER PO SCH (09:04)
[2021-06-22] MEDS: Benzonatate 100 MG Cap PO SCH (09:04)
[2021-06-22] MEDS: PARoxetine 20 MG Tab PO SCH (09:04)
[2021-06-22] MEDS: Budesonide 0.5 MG/2 ML Neb Susp INH SCH (09:04)
[2021-06-22] MEDS: Multivitamin Tab PO SCH (09:04)
[2021-06-22] MEDS: Calcium Carbonate 500 MG Tablet PO SCH (09:04)
[2021-06-22 09:05] VITALS: BP 125/60; PULSE 84
--- NOTE | 2021-06-23 09:23 | PCM.DCSUM1 ---
Discharge Summary - Hospital Course Free Text/Narrative:: Hospital course-patient was admitted to hospital placed on Rocephin, Zithromax and prednisone. She was found to have pneumonia and COPD and confusion. Patient did really well on the medication and her cough went down shortness of breath got better. She is always on 3 L oxygen and her oxygen went back to normal for her. Her wheezing and coughing went away. Confusion went away. She was having problems with some memory. There is long discussions of where she should go. Patient want to go home but her could help her. Home health and other people feel she should go to the care home so that is what was done. Should be sent home on Augmentin. She will be followed with Dr. Coker from [facility]. Brief History: Asha is a 76-year-old female was brought in by family because of increasing confusion, weakness,dizziness/vertigo. Apparently she's been sitting in the recliner for a month without much movement. She is confused and not able to give much history.Her brought her in. She has a history of C OPD, multinodular goiter,Anxiety, Depression. Diagnosis: Stroke: No - Discharge Data Discharge Date: 06/22/21 Discharge Disposition: DC/Tfer to [facility] Condition: Good - Referral to Home Health Primary Care Physician: Jocelyne Coker MD - Discharge Diagnosis/Problem(s) (1) Altered mental status SNOMED Code(s): 072661591 ICD Code: R41.82 - ALTERED MENTAL STATUS, UNSPECIFIED Status: Acute Qualifiers: Altered mental status type: delirium Qualified Code(s): R41.0 - D isorientation, unspecified (2) CAP (community acquired pneumonia) SNOMED Code(s): 879321612 ICD Code: J18.9 - PNEUMONIA, UNSPECIFIED ORGANISM Status: Acute (3) Chronic radicular low back pain SNOMED Code(s): 24746725, 10361985 ICD Code: M54.16 - RADICULOPATHY, LUMBAR REGION; G89.29 - OTHER CHRONIC PAIN Status: Acute (4) Encephalopathy SNOMED Code(s): 46888375 ICD Code: G93.40 - ENCEPHALOPATHY, UNSPECIFIED Status: Acute (5) Obesity SNOMED Code(s): 547406133, 054981132 ICD Code: E66.9 - OBESITY, UNSPECIFIED Status: Acute (6) UTI (urinary tract infection) SNOMED Code(s): 87757786 ICD Code: N39.0 - URINARY TRACT INFECTION, SITE NOT SPECIFIED Status: Acute (7) MDD (major depressive disorder) SNOMED Code(s): 452746343 ICD Code: F32.9 - MAJOR DEPRESSIVE DISORDER, SINGLE EPISODE, UNSPECIFIED Status: Chronic Qualifiers: Major depression recurrence: recurrent (8) COPD (chronic obstructive pulmonary disease) SNOMED Code(s): 82724939 ICD Code: J44.9 - CHRONIC OBSTRUCTIVE PULMONARY DISEASE, UNSPECIFIED Status: Acute Problem Details: SVN with Duonebs,Solumedrol IV and Abx-She has no WBC,or fever but will do for exacerbation of COPD Qualifiers: COPD type: unspecified COPD Qualified Code(s): J44.9 - Chronic obstructive pulmonary disease, unspecified (9) Palliative care status SNOMED Code(s): 239982579 ICD Code: Z51.5 - ENCOUNTER FOR PALLIATIVE CARE Status: Acute (10) Pneumonia SNOMED Code(s): 305520166 ICD Code: J18.9 - PNEUMONIA, UNSPECIFIED ORGANISM Status: Acute Priority: High Problem Details: change to po AB. Home tomorrow if continues to improve (11) Depression with anxiety SNOMED Code(s): 112061818 ICD Code: F41.8 - OTHER SPECIFIED ANXIETY DISORDERS Status: Acute (12) Depression SNOMED Code(s): 63370818 ICD Code: F32.A - DEPRESSION, UNSPECIFIED Status: Acute Qualifiers: Depression Type: unspecified Qualified Code(s): F32.A - Depression, unspecified - Patient Summary/Data Consults: Consultations 06/17/21 09:43 PT Evaluation and Treatment [CONS] Routine Please Evaluate and Treat. PT Reason for Consult: Strengthening This query below is only for informational purposes and is not editable. Admission Diagnosis/Problem: Encephalopathy due to infection 06/17/21 09:44 OT Evaluation and Treatment [CONS] Routine Please Evaluate and Treat. OT Reason for Consult: ADL's This query below is only for informational purposes and is not editable. Admission Diagnosis/Problem: Encephalopathy due to infection - Patient Instructions Diet: Regular Diet as Tolerated Activity: As Tolerated Driving: Do Not Drive Showering/Bathing: May Shower Other/Special Instructions: 1. pt can be seen at [facility] in followup. - Discharge Plan Home Medications: Home Meds Albuterol [Ventolin HFA] 2 puff INH Q4H PRN 09/24/13 [History] Fluticasone Propionate [Flonase] 2 sprays NASBOTH DAILY PRN 09/24/13 [History] PARoxetine [Paxil] 40 mg PO DAILY 09/24/13 [History] Fluticasone/Salmeterol [Advair 250-50] 1 puff INH BID 07/14/14 [History] Losartan [Cozaar] 100 mg PO DAILY 12/19/14 [History] Acetaminophen [Tylenol Arthritis] 1,300 mg PO Q8H 09/04/16 [History] Albuterol/Ipratropium [DuoNeb 3.0-0.5 MG/3 ML] 3 ml IH QID 09/04/16 [History] Bimatoprost [[place] 0.01% Ophth Soln] 1 drop EYEBOTH BEDTIME 09/04/16 [History] Metoprolol Succinate [Toprol XL] 50 mg PO DAILY 09/04/16 [History] Docusate Sodium/Sennosides [Senokot-S] 1 tab PO BID PRN 09/23/16 [History] Hypromellose [GenTeal Mild to Moderate Ophth Soln] 1 drop EYEBOTH DAILY PRN 09/23/16 [History] Benzonatate [Tessalon Perles] 100 mg PO TID 03/25/17 [History] Calcium Carbonate/Vitamin D3 [Calcium 600-Vit D3 400 Tablet] 1 tab PO BID 03/25/17 [History] Multivitamin [Multi-Vitamin Daily] 1 tab PO DAILY 03/25/17 [History] Polyethylene Glycol 3350 [MiraLAX] 17 gram PO DAILY PRN 03/25/17 [History] guaiFENesin [Robitussin] 200 mg PO Q6H PRN 12/20/17 [History] ALPRAZolam [Alprazolam] 1.5 mg PO TID 06/16/21 [History] Budesonide [Pulmicort] 0.5 mg IH BID 06/16/21 [History] Furosemide [Lasix] 20 mg PO DAILY PRN 06/16/21 [History] Omeprazole 20 mg PO DAILY 06/16/21 [History] Rosuvastatin [Crestor] 10 mg PO DAILY 06/16/21 [History] methIMAzole [Methimazole] 5 mg PO DAILY 06/16/21 [History] traZODone 150 mg PO BEDTIME 06/16/21 [History] Amoxicillin/Clavulanate K [Augmentin 875-125 MG] 1 tab PO BID #10 tablet 06/22/21 [Rx] Patient Handouts: Urinary Tract Infection, Adult, [id number], Fall Prevention in Hospitals, Adult, Venous Thromboembolism Prevention Forms: ED Department Discharge Referrals: Jocelyne Coker MD [Primary Care Provider] - - Discharge Summary/Plan Comment DC Time >30 min.: No Total # of Minutes for Discharge Time: 10 minutes - Patient Data Vitals - Most Recent: Last Vital Signs Temp 97.9 F 06/22/21 08:00 Pulse 84 06/22/21 09:04 Resp 18 06/22/21 08:00 BP 125/60 06/22/21 09:04 Pulse Ox 91 L 06/22/21 08:00 Weight - Most Recent: 192 lb 5 oz Lab Results - Last 24 hrs: Laboratory Results - last 24 hr 06/22/21 Range/Units 06:50 POC Glucose 145 H D (80-116) mg/dL Med Orders - Current: Current Medications Discontinued Medications Acetaminophen (Acetaminophen 650 Mg Tab.Er) 1,300 mg PO Q8H [facility] Last Admin: 06/22/21 06:42 Dose: 1,300 mg Documented by: Albuterol (Albuterol 8 Gm Inhaler) 0 gm INH Q4H PRN PRN Reason: Wheezing Albuterol/Ipratropium (Albuterol/Ipratropium 3.0-0.5 Mg/3 Ml Neb Soln) 3 ml INH QIDRT [facility] Last Admin: 06/22/21 06:44 Dose: 3 ml Documented by: Alprazolam (Alprazolam 0.5 Mg Tab) 1.5 mg PO TID@0600,1200,1700 [facility] Last Admin: 06/22/21 06:43 Dose: 1.5 mg Documented by: Amoxicillin/Clavulanate Potassium (Amoxicillin/Clavulanate K 875-125 Mg Tab) 1 tab PO BID [facility] Stop: 06/26/21 21:01 Last Admin: 06/22/21 09:02 Dose: 1 tab Documented by: Artificial Tears (Hypromellose 0.3% Ophth Soln 15 Ml Bottle) 0 ml EYEBOTH DAILY PRN PRN Reason: Dry Eyes Azithromycin (Azithromycin 250 Mg Tab) 250 mg PO DAILY [facility] Stop: 06/21/21 09:01 Last Admin: 06/21/21 09:04 Dose: 250 mg Documented by: Benzonatate (Benzonatate 100 Mg Cap) 100 mg PO TID [facility] Last Admin: 06/22/21 09:04 Dose: 100 mg Documented by: Budesonide (Budesonide 0.5 Mg/2 Ml Neb Susp) 0.5 mg INH BID [facility] Last Admin: 06/22/21 09:04 Dose: 0.5 mg Documented by: Calcium Carbonate/Glycine (Calcium Carbonate 500 Mg Tablet) 500 mg PO BID [facility] Last Admin: 06/22/21 09:04 Dose: 500 mg Documented by: Ceftriaxone Sodium (Ceftriaxone 1 Gm Vial) 1 gm IVPUSH Q24H [facility] Last Admin: 06/19/21 12:36 Dose: 1 gm Documented by: Clotrimazole (Clotrimazole 1% Crm 30 Gm Tube) 0 gm TOP BID [facility] Last Admin: 06/22/21 09:03 Dose: 1 applic Documented by: Dextrose/Water (50% Dextrose In Water 50 Ml Syringe) 50 ml IVPUSH ASDIRECTED PRN PRN Reason: Hypoglycemia Enoxaparin Sodium (Enoxaparin 40 Mg/0.4 Ml Syringe) 40 mg SUBCUT Q24H [facility] Last Admin: 06/21/21 13:52 Dose: 40 mg Documented by: Fluticasone Propionate (Fluticasone Propionate Nasal [place] 16 Gm Bottle) 0 gm NASBOTH DAILY PRN PRN Reason: Congestion Furosemide (Furosemide 20 Mg Tab) 20 mg PO DAILY PRN PRN Reason: Edema Glucagon (Glucagon,Human Recombinant 1 Mg Vial) 1 mg IM ASDIRECTED PRN PRN Reason: Hypoglycemia Guaifenesin (Guaifenesin 100 Mg/5 Ml Soln 5 Ml Ud Cup) 200 mg PO Q6H PRN PRN Reason: Cough Azithromycin 500 mg/ Sodium (Chloride) 250 mls @ 250 mls/hr IV Q24H [facility] Last Admin: 06/19/21 20:43 Dose: 250 mls/hr Documented by: Insulin Human Lispro (Insulin Lispro 100 Unit/Ml 3 Ml Kwikpen) 0 unit SUBCUT TIDMEALS [facility]; Protocol Last Admin: 06/22/21 09:02 Dose: Not Given Documented by: Latanoprost (Latanoprost 0.005% Ophth Soln 2.5 Ml Bottle) 0 ml EYEBOTH BEDTIME [facility] Last Admin: 06/21/21 20:56 Dose: 1 drop Documented by: Losartan Potassium (Losartan 100 Mg Tab) 100 mg PO DAILY [facility] Last Admin: 06/22/21 09:02 Dose: 100 mg Documented by: Methimazole (Methimazole 5 Mg Tab) 5 mg PO DAILY [facility] Last Admin: 06/22/21 09:03 Dose: 5 mg Documented by: Metoprolol Succinate (Metoprolol Succinate 50 Mg Tab.Er) 50 mg PO DAILY [facility] Last Admin: 06/22/21 09:04 Dose: 50 mg Documented by: Mometasone Furoate/Formoterol Fumar (Formoterol/Mometasone 200-5 Mcg 8.8 Gm Inhaler) 2 puff IH BID [facility] Last Admin: 06/22/21 09:02 Dose: 2 puff Documented by: Multivitamins/Minerals/Vitamin C (Multivitamin Tab) 1 tab PO DAILY [facility] Last Admin: 06/22/21 09:04 Dose: 1 tab Documented by: (Fluticasone/Salmeterol [Advair 250-50] *Ptom 1 puff INH BID [facility] Last Admin: 06/17/21 09:01 Dose: 1 puff Documented by: (Omeprazole [ Omeprazole] 20 Mg Capsule.Dr) *Ptom 20 mg PO DAILY [facility] Last Admin: 06/17/21 09:04 Dose: 20 mg Documented by: (Paroxetine [Paxil] (40 Mg Tablet) *Ptom) 40 mg PO DAILY [facility] Last Admin: 06/17/21 09:01 Dose: 40 mg Documented by: Ondansetron HCl (Ondansetron 4 Mg/2 Ml Sdv) 4 mg IVPUSH Q4H PRN PRN Reason: Nausea/Vomiting Last Admin: 06/17/21 04:48 Dose: 4 mg Documented by: Pantoprazole Sodium (Pantoprazole 40 Mg Tab.Cr) 40 mg PO DAILY@0600 [facility] Last Admin: 06/22/21 06:43 Dose: 40 mg Documented by: Paroxetine HCl (Paroxetine 20 Mg Tab) 40 mg PO DAILY [facility] Last Admin: 06/22/21 09:04 Dose: 40 mg Documented by: Polyethylene Glycol (Polyethylene Glycol 3350 Powder 17 Gm Packet) 17 gm PO DAILY PRN PRN Reason: Constipation Prednisone (Prednisone 20 Mg Tab) 20 mg PO WITHBREAKFAST [facility] Stop: 06/21/21 08:01 Last Admin: 06/21/21 08:54 Dose: 20 mg Documented by: Rosuvastatin Calcium (Rosuvastatin 10 Mg Tab) 10 mg PO DAILY [facility] Last Admin: 06/22/21 09:02 Dose: 10 mg Documented by: Senna/Docusate Sodium (Docusate Sodium/Sennosides 50-8.6 Mg Tab) 1 tab PO BID PRN PRN Reason: Constipation Sodium Chloride (Sodium Chloride 0.9% 10 Ml Syringe) 10 ml FLUSH ASDIRECTED PRN PRN Reason: Keep Vein Open Last Admin: 06/19/21 21:45 Dose: 10 ml Documented by: Trazodone HCl (Trazodone 100 Mg Tab *Ptom) 150 mg PO BEDTIME [facility] Last Admin: 06/16/21 21:37 Dose: 150 mg Documented by: Trazodone HCl (Trazodone 50 Mg Tab) 150 mg PO BEDTIME [facility] Last Admin: 06/21/21 20:55 Dose: 150 mg Documented by:
== END 2021-06-22 11:15 | DRG 689 ==
LOC: FB.ED 10:38 → UNDOADMOB 15:21 → FB.MS 15:21 → OBSVTOIN 06-17 09:40
PROVIDERS: ADMIT Family Medicine; ATTEND Family Medicine
DX: R41.0 Disorientation, unspecified (principal); R53.1 Weakness; R82.71 Bacteriuria; R93.89 Abnormal findings on diagnostic imaging of other specified body structures; N39.0 Urinary tract infection, site not specified; J18.9 Pneumonia, unspecified organism; J43.9 Emphysema, unspecified; J44.0 Chronic obstructive pulmonary disease with (acute) lower respiratory infection; G93.49 Other encephalopathy; G89.29 Other chronic pain; M54.16 Radiculopathy, lumbar region; E66.9 Obesity, unspecified; Z51.5 Encounter for palliative care; F41.8 Other specified anxiety disorders; Z20.822 Contact with and (suspected) exposure to COVID-19; F41.9 Anxiety disorder, unspecified; Z66 Do not resuscitate; H54.7 Unspecified visual loss; K21.9 Gastro-esophageal reflux disease without esophagitis; M19.90 Unspecified osteoarthritis, unspecified site; M81.0 Age-related osteoporosis without current pathological fracture; F41.0 Panic disorder [episodic paroxysmal anxiety]; M79.2 Neuralgia and neuritis, unspecified; R51.9 Headache, unspecified; G44.209 Tension-type headache, unspecified, not intractable; E04.2 Nontoxic multinodular goiter; B96.20 Unspecified Escherichia coli [E. coli] as the cause of diseases classified elsewhere; I10 Essential (primary) hypertension; H40.9 Unspecified glaucoma; R32 Unspecified urinary incontinence; Z90.49 Acquired absence of other specified parts of digestive tract; Z88.2 Allergy status to sulfonamides; Z88.1 Allergy status to other antibiotic agents; Z79.51 Long term (current) use of inhaled steroids; Z79.899 Other long term (current) drug therapy; Z87.891 Personal history of nicotine dependence; Z98.49 Cataract extraction status, unspecified eye; Z68.37 Body mass index [BMI] 37.0-37.9, adult; Z88.8 Allergy status to other drugs, medicaments and biological substances
CPT/HCPCS: 36415 ×2; 70450; 71045; 80053 ×2; 81001; 82947; 84443; 84484; 85025 ×2; 87086; 87088; 87186; 93005; 94640; 94760; A9270 ×17; J0456; J0696; J1650; J2405; J7050; U0002; 97116-GP; 97161-GP; 97166-GO; 97530-GO; 97535-GO; J1815; J7512; J7620-GY

== ENCOUNTER 2024-08-21 17:09 | Emergency (ER) | payer MEDICARE, OTHER ==
[2024-08-21] MEDS ORDERED: Azithromycin 250 MG Tab PO ONE (17:10)
[2024-08-21] MEDS ORDERED: Amoxicillin/Clavulanate K 875-125 MG Tab PO ONE (17:10)
[2024-08-21 17:32] VITALS: PULSE 86
[2024-08-21] MEDS ORDERED: Sodium Chloride 0.9% 10 ML Syringe FLUSH PRN (18:02)
[2024-08-21 18:25] LABS: BILIRUBIN,URINE NEGATIVE (NEGATIVE); GLUCOSE,URINE NORMAL (NORMAL); KETONES,URINE NEGATIVE (NEGATIVE); LEUKOCYTE ESTERASE,URINE NEGATIVE (NEGATIVE); NITRITE,URINE NEGATIVE (NEGATIVE); OCCULT BLOOD,URINE MODERATE (NEGATIVE); PROTEIN,URINE NEGATIVE (NEGATIVE); UROBILINOGEN,URINE 4 mg/dL (NEGATIVE)
[2024-08-21 18:27] LABS: APPEARANCE,URINE CLEAR (CLEAR); COLOR,URINE YELLOW (YELLOW); SQUAMOUS EPITHELIAL CELLS,UR RARE (NS,R,O); WBC,URINE 0-5 (0-5)
[2024-08-21 18:28] LABS: AMORPHOUS SEDIMENT,URINE FEW; BACTERIA,URINE FEW (NS)
[2024-08-21 18:28] LABS: BLOOD UREA NITROGEN,BUN 7 mg/dL (7-18); CALCIUM 9.2 mg/dL (8.6-10.2); CARBON DIOXIDE,CO2 30 mmol/L (21-32); CHLORIDE,CL 101 mmol/L (100-110); CREATININE 0.5 mg/dL (0.55-1.02); ESTIMATED GFR 96 mL/min (>60); GLUCOSE RANDOM 107 mg/dL (80-116); POTASSIUM,K 3.5 mmol/L (3.5-5.3); SODIUM,NA 138 mmol/L (135-145)
[2024-08-21 18:30] VITALS: BP 121/53
[2024-08-21 18:32] LABS: BASE EXCESS VENOUS,POC 4 mmol/L (-2 - 3+); PCO2 VENOUS,POC 48 mmHg (41-51)
[2024-08-21 18:33] LABS: MEAN CORPUSCULAR VOLUME 87.5 fL (76.7-100.5); MEAN PLATELET VOLUME 6.2 fL (7.1-12.4)
[2024-08-21 18:34] LABS: A/G RATIO 0.6; ALANINE AMINOTRANSFERASE,ALT 15 U/L (12-36); ALBUMIN 2.4 g/dL (3.2-4.6); ALKALINE PHOSPHATASE 88 IU/L (56-112); ASPARTATE AMNIOTRANSFERASE,AST 11 IU/L (5-25); BILIRUBIN TOTAL 0.4 mg/dL (0.1-1.3); MAGNESIUM 1.7 mg/dL (1.8-2.5); PROTEIN TOTAL,TP 6.5 g/dL (6.0-8.0)
[2024-08-21 18:35] LABS: HEMATOCRIT 32.9 % (34.2-48.2); HEMOGLOBIN 10.9 g/dL (11.4-15.5); MEAN CORPUSCULAR HEMOGLOBIN 28.9 pg (23.9-33.9); PLATELET COUNT,PLT 463 x10(3)uL (151-488); RED BLOOD CELL COUNT 3.76 x10(6)uL (3.60-5.20); RED CELL DISTRIBUTION WIDTH 15.5 % (12.3-16.5); WHITE BLOOD CELL COUNT,WBC 10.4 x10-3/uL (3.0-10.3)
[2024-08-21 18:41] LABS: TROPONIN I < 4.0 pg/mL (4.0-60.3)
[2024-08-21 18:42] LABS: LYMPHOCYTES PERCENT MAN 30 % (13-37); MONOCYTES PERCENT MAN 12 % (4-12); SEG NEUTROPHILS PERCENT MAN 58 % (46-82)
[2024-08-21 19:38] LABS: C-REACTIVE PROTEIN 22.85 mg/dL (<0.50)
[2024-08-21] MEDS: LORazepam 2 MG/ML SDV IVPUSH ONE (19:41)
[2024-08-21] MEDS: Iopamidol 755 Mg/ML 100 ML Bottle IV SCH (20:54)
[2024-08-21] MEDS: Sodium Chloride 0.9% 500 ML IV ONE (21:00)
[2024-08-21] MEDS ORDERED: Azithromycin 500 MG in Sodium Chloride 0.9% 250 ML IV SCH (21:30)
[2024-08-21] MEDS ORDERED: cefTRIAXone 1 GM Vial IVPUSH SCH (21:30)
[2024-08-21] MEDS: cefTRIAXone 2 GM Vial IVPUSH ONE (22:08)
== END 2024-08-21 23:00 | disposition home or self-care (01) ==
LOC: FB.ED 17:09
DX: J96.01 Acute respiratory failure with hypoxia (principal); J18.9 Pneumonia, unspecified organism; F03.B18 Unspecified dementia, moderate, with other behavioral disturbance; I10 Essential (primary) hypertension; J44.89 Other specified chronic obstructive pulmonary disease; Z88.6 Allergy status to analgesic agent; Z88.2 Allergy status to sulfonamides; Z79.51 Long term (current) use of inhaled steroids; Z79.899 Other long term (current) drug therapy; Z90.49 Acquired absence of other specified parts of digestive tract; Z90.710 Acquired absence of both cervix and uterus; Z87.891 Personal history of nicotine dependence
CPT/HCPCS: 36415; 70450; 71045; 71275; 80053; 81001; 83605; 83735; 84484; 85025; 85379; 86140; 87040; 87086; 87088; 87186; 87428; 96374; 96375; 99285; A9270; J0696; J2060; Q9967